=== PATIENT | male | born 1935 | race American Indian/Alaskan Native ===

== ENCOUNTER 2016-11-07 16:16 | Emergency (ER) | payer MEDICARE ==
--- NOTE | 2016-11-07 20:55 | Emergency Department Report ---
HPI - General Chief Complaint: Urogenital-Male Time Seen by Provider: 11/07/16 20:20 - HPI HPI: This is an 81-year-old Afro-[place]ish male who presents to the emergency department by EMS from home with complaint of bloody urine. Family also was concerned about some swelling to the legs. The patient himself says he has some intermittent generalized abdominal pain, although he does not complain of any at this time or now. No fever, nausea, vomiting, diarrhea. Patient says that the bloody urine has been going on for the past few days. He has a past nuchal history of CHF, diabetes, hypertension. Patient was recently released from a skilled nursing to the care of the family about 1 week ago and there were no issues at that time. Patient's primary care is usually through the [facility]. ED Past Medical Hx - Past Medical History Hx Hypertension: Yes Hx Congestive Heart Failure: Yes Hx Diabetes: Yes - Surgical History Hx Open Heart Surgery: Yes Additional Surgical History: triple bypass - Social History Smoking Status: Former Smoker Substance Use Type: None - Medications Home Medications: Home Medications Medication Instructions Recorded Confirmed Last Taken Type Ciprofloxacin HCl [Ciprofloxacin 500 mg PO Q12HR #14 tab 11/08/16 Unknown Rx TAB] ED Review of Systems ROS: Stated complaint: HEMATAURIA Other details as noted in HPI Comment: All other systems reviewed and negative Constitutional: denies: chills, fever Eyes: denies: eye pain, eye discharge, vision change ENT: denies: ear pain, throat pain Respiratory: denies: cough, shortness of breath, wheezing Cardiovascular: edema. denies: chest pain, palpitations Gastrointestinal: abdominal pain. denies: nausea, vomiting Genitourinary: hematuria. denies: dysuria Musculoskeletal: denies: back pain, joint swelling, arthralgia Skin: denies: rash, change in color Neurological: denies: headache, weakness, paresthesias Physical Exam - Physical Exam Vital Signs: Vital Signs 11/07/16 11/07/16 19:43 20:19 Temperature 98.0 F Pulse Rate 75 Respiratory 20 20 Rate Blood Pressure 123/59 O2 Sat by Pulse 98 98 Oximetry Physical Exam: GENERAL: The patient is well-developed well-nourished. HEENT: Normocephalic. Atraumatic. Extraocular motions are intact. Patient has moist mucous membranes. NECK: Supple. Trachea is midline. CHEST/LUNGS: Clear to auscultation. There is no respiratory distress noted. HEART/CARDIOVASCULAR: Regular. There is no tachycardia. There is no gallop rub or murmur. ABDOMEN: Abdomen is soft, nontender. Patient has normal bowel sounds. There is no abdominal distention. SKIN: There is no rash. There is no edema. There is no diaphoresis. NEURO: The patient is awake, alert, and oriented. The patient is cooperative. The patient has no focal neurologic deficits. The patient has normal speech. MUSCULOSKELETAL: There is no tenderness or deformity. There is no limitation range of motion. There is no evidence of acute injury. ED Course Vital Signs 11/07/16 11/07/16 19:43 20:19 Temperature 98.0 F Pulse Rate 75 Respiratory 20 20 Rate Blood Pressure 123/59 O2 Sat by Pulse 98 98 Oximetry ED Medical Decision Making - Lab Data Result diagrams: 11/07/16 20:34 11/07/16 20:34 - Radiology Data Radiology results: report reviewed CT of the abdomen and pelvis with IV contrast shows markedly enlarged prostate with suggestion of invasion into the urinary bladder and seminal vesicles. Prostate carcinoma is not excluded and should be further evaluated. Small umbilical hernia noted containing fatty tissue. No bowel loops within the hernia sac. - Medical Decision Making This is a 81-year-old male who presents the emergency department with at least a few days of gross hematuria. Patient was able to "urinate" but the bedside urinal shows either very dark urine or gross hematuria. Patient's labs are mostly unremarkable. He does have some anemia but is not a level to require transfusion at this time. His vital signs are stable including being afebrile. Due to the amount of blood in the urine, the urinalysis could not be completed to see any signs of infection. For this reason patient was just started on Cipro. A CT of the abdomen and pelvis with IV contrast was done and came back showing markedly enlarged prostate with some signs of invasion to the urinary bladder and some local vesicles concerning for prostate carcinoma. I was able to speak to the patient's daughter and let her know, as well as the patient himself, regarding the CT findings and the need for follow-up POLO with urology to further evaluate these findings and enlarged prostate with concern for cancer. - Differential Diagnosis BPH, prostate cancer, UTI, nephrolithiasis Critical Care Time: No Critical care attestation.: If time is entered above; I have spent that time in minutes in the direct care of this critically ill patient, excluding procedure time. ED Disposition Clinical Impression: Enlarged prostate, Hematuria Disposition: DISCHARGED TO HOME OR SELFCARE Is pt being admited?: No Does the pt Need Aspirin: No Condition: Stable Instructions: Acute Hematuria (ED) Additional Instructions: You will need to follow-up with a urologist regarding your bloody urine and the CT findings of enlarged prostate that is invading into the urinary bladder with concern for possible prostate cancer. The diagnosis of cancer cannot be made from the emergency department but it is imperative that you follow-up as soon as possible with a urologist. I have given you a referral for a local urologist , Dr. Brantley, but she were free to see whatever urologist you would like. Return to the emergency department with any worsening of your symptoms or any acute distress. Prescriptions: Ciprofloxacin HCl [Ciprofloxacin TAB] 500 mg PO Q12HR #14 tab Referrals: PRIMARY CARE, [Primary Care Provider] - 3-5 Days KIT BRANTLEY MD [Staff Physician] - [facility] Time of Disposition: 23:10
[2016-11-07 21:04] LABS: Basophils % (Auto) 0.3 % (0.0-1.8); Eosinophils % (Auto) 1.1 % (0.0-4.3); Hematocrit 30.6 % (35.5-45.6); Hemoglobin 9.9 gm/dl (11.8-15.2); Mean Corpuscular HGB Conc 32 % (32-34); Mean Corpuscular Hemoglobin 27 pg (28-32); Mean Corpuscular Volume 83 fl (84-94); Platelet Count 140 K/mm3 (140-440); Red Cell Distribution Width 16.9 % (13.2-15.2)
[2016-11-07 21:24] LABS: Alanine Aminotransferase 12 units/L (7-56); Albumin/Globulin Ratio 0.9 %; Alkaline Phosphatase 53 units/L (35-129); Anion Gap 21 mmol/L; BUN/Creatinine Ratio 16.92; Bilirubin,Total 0.6 mg/dL (0.1-1.2); Blood Urea Nitrogen 22 mg/dL (9-20); Calcium 8.2 mg/dL (8.4-10.2); Carbon Dioxide 25 mmol/L (22-30); Chloride 95.5 mmol/L (98-107); Glucose 174 mg/dL (75-100); Potassium 3.9 mmol/L (3.6-5.0); Sodium 138 mmol/L (137-145); Total Protein 6.4 g/dL (6.3-8.2)
[2016-11-07] MEDS ORDERED: NACL ONE (21:39)
--- NOTE | 2016-11-07 22:52 | Cat Scan Report ---
FINAL REPORT EXAM: CT ABDOMEN PELVIS W CON HISTORY: Abd pain, gross hematuria TECHNIQUE: CT of the abdomen and pelvis without contrast PRIORS: None. FINDINGS: No acute abnormality identified in the visualized portion of the lung bases. No focal abnormality seen within the liver parenchyma nonenhanced images. The spleen is normal size and attenuation No peripancreatic inflammatory changes are seen. Kidneys demonstrate no evidence for hydronephrosis or nephro lithiasis. A few vascular calcifications are noted. The adrenal glands are unremarkable No evidence for colonic or small bowel distention. Abdominal aorta is normal in caliber. The appendix is identified and is unremarkable. There is small umbilical hernia containing fatty tissue. There are no bowel loops present within the hernia sac. Prostate is markedly enlarged and seminal vesicles not well-defined. Prostate new impresses on the urinary bladder there is some thickening of the posterior bladder wall. There is large amount of fecal material within rectosigmoid. IMPRESSION: Markedly enlarged prostate with suggestion of invasion into the urinary bladder and seminal vesicles. Prostate carcinoma is not excluded and should be further evaluated Small umbilical hernia noted containing fatty tissue. No bowel loops within the hernia sac.
[2016-11-08 04:02] VITALS: BP 126/66
== END 2016-11-08 03:59 | disposition home or self-care (01) ==
LOC: ED 16:16
DX: N40.0 Benign prostatic hyperplasia without lower urinary tract symptoms (principal); R31.9 Hematuria, unspecified; I10 Essential (primary) hypertension; E11.9 Type 2 diabetes mellitus without complications; I50.9 Heart failure, unspecified; Z87.891 Personal history of nicotine dependence
CPT/HCPCS: 36415; 74177; 80053; 83880; 85025; 99285; Q9967

== ENCOUNTER 2017-03-04 15:55 | Inpatient (IN) | payer MEDICARE, OTHER ==
--- NOTE | 2017-03-04 16:19 | Emergency Department Report ---
ED General Adult HPI - General Chief complaint: Altered Mental Status Stated complaint: POSS STROKE Time Seen by Provider: 03/04/17 16:12 Source: family, EMS (ems notes not available at time of chart dictation), RN notes reviewed Mode of arrival: Stretcher Limitations: Altered Mental Status - History of Present Illness Initial comments: This is an 81-year-old male. He is previously unknown to me. He is brought to the hospital by EMS for altered mental status. Patient is nonverbal, is not able to participate in his history and physical. History obtained by speaking to the patient's daughter, Miss Kylah Cruz; , and the patient's ex-, Miss Arnold; [phone]. As for the patient's family, patient's last seen normal at 90 o'clock this morning. They report the patient is typically conversant, but requires help with activities of daily living. Family reports that the patient is found at home in bed at 2: 00 PM, and is altered. This is constant, painless, has no exacerbating or relieving factors, family reports that patient has been constipated for quite a while. No fevers or chills. No chest pain or shortness of breath, no irritative or obstructive urinary symptoms as per family. Upon arrival to the ER, the patient was found to be hypotensive, but afebrile rectally. He is found to have hyponatremia, acute renal insufficiency, hypothyroidism, hypokalemia. Noncontrast CAT scan of the brain is negative, x-ray of the abdomen and pelvis suggests constipation, consistent with clinical history, urinalysis does not suggest urinary tract infection. Lactic acid somewhat elevated, patient was given 2 L of IV, his blood pressure improved. Patient was treated empirically with ceftriaxone to cover for bacteremia. X-ray the chest did not suggest pneumonia. Blood pressure currently in the high 90s. An ammonia level is pending, but given constipation and global encephalopathy, he will be treated empirically with a lactulose enema. The case was discussed with the Hospital physician, Dr. Salgado, who accepts the patient to his service for acute renal insufficiency, global encephalopathy, resolving hypotension, and altered mental status. -: Gradual Severity scale (0 -10): 0 Consistency: constant Improves with: none Worsens with: none Associated Symptoms: confusion, malaise, weakness - Related Data Home Medications Medication Instructions Recorded Confirmed Last Taken Unobtainable 03/04/17 03/04/17 Unknown Allergies Allergy/AdvReac Type Severity Reaction Status Date / Time No Known Allergies Allergy Verified 11/07/16 21:44 ED Review of Systems ROS: Stated complaint: POSS STROKE Other details as noted in HPI Comment: Unobtainable due to pts medical conditions ED Past Medical Hx - Past Medical History Hx Hypertension: Yes Hx Congestive Heart Failure: Yes Hx Diabetes: Yes - Surgical History Hx Open Heart Surgery: Yes Additional Surgical History: triple bypass - Social History Smoking Status: Unknown if ever smoked - Medications Home Medications: Home Medications Medication Instructions Recorded Confirmed Last Taken Type Unobtainable 03/04/17 03/04/17 Unknown History ED Physical Exam - General Limitations: Altered Mental Status, Physical Limitation General appearance: lethargic - Head Head exam: Present: atraumatic, normocephalic - Eye Eye exam: Present: normal appearance - Neck Neck exam: Present: normal inspection, full ROM - Respiratory Respiratory exam: Present: decreased breath sounds. Absent: respiratory distress - Cardiovascular Cardiovascular Exam: Present: regular rate, normal rhythm, normal heart sounds. Absent: bradycardia, tachycardia, irregular rhythm, systolic murmur, diastolic murmur, rubs, gallop - GI/Abdominal GI/Abdominal exam: Present: soft, normal bowel sounds. Absent: distended, tenderness, guarding, rebound, rigid, pulsatile mass - Rectal Rectal exam: Present: normal inspection (no sacral ulcers are noted) - exam: Present: normal inspection - Extremities Exam Extremities exam: Present: normal inspection, normal capillary refill, pedal edema. Absent: calf tenderness - Back Exam Back exam: Present: normal inspection. Absent: tenderness, CVA tenderness (R), CVA tenderness (L), muscle spasm, paraspinal tenderness, vertebral tenderness - Neurological Exam Neurological exam: Present: altered, other (patient has fluctuating episodes of consciousness, currently awake, occasionally moves 4 extremities) - Psychiatric Psychiatric exam: Present: flat affect, other (patient is nonverbal) - Skin Skin exam: Present: warm, dry, intact, normal color. Absent: rash ED Course Vital Signs 03/04/17 03/04/17 16:01 16:47 Temperature 98.2 F 97.4 F L Pulse Rate 64 64 Respiratory 18 18 Rate Blood Pressure 88/42 Blood Pressure 88/42 97/52 [Left] O2 Sat by Pulse 89 98 Oximetry ED Medical Decision Making - Lab Data Result diagrams: 03/04/17 16:40 03/04/17 16:40 Vital Signs 03/04/17 03/04/17 16:01 16:47 Temperature 98.2 F 97.4 F L Pulse Rate 64 64 Respiratory 18 18 Rate Blood Pressure 88/42 Blood Pressure 88/42 97/52 [Left] O2 Sat by Pulse 89 98 Oximetry Lab Results 03/04/17 03/04/17 03/04/17 Range/Units 15:00 15:00 16:40 WBC 9.7 (4.5-11.0) K/mm3 RBC 4.66 (3.65-5.03) M/mm3 Hgb 12.6 (11.8-15.2) gm/dl Hct 40.5 (35.5-45.6) % MCV 87 (84-94) fl MCH 27 L (28-32) pg MCHC 31 L (32-34) % RDW 21.4 H (13.2-15.2) % Plt Count 100 L (140-440) K/mm3 Lymph % (Auto) 17.5 (13.4-35.0) % [place] % (Auto) 5.3 (0.0-7.3) % Eos % (Auto) 0.0 (0.0-4.3) % Baso % (Auto) 0.3 (0.0-1.8) % Lymph # 1.7 (1.2-5.4) K/mm3 [place] # 0.5 (0.0-0.8) K/mm3 Eos # 0.0 (0.0-0.4) K/mm3 Baso # 0.0 (0.0-0.1) K/mm3 Seg Neutrophils % 76.9 H (40.0-70.0) % Seg Neutrophils # 7.5 (1.8-7.7) K/mm3 POC ABG pH (7.35-7.45) POC ABG pCO2 (35-45) POC ABG pO2 (80-105) POC ABG HCO3 POC ABG Total CO2 POC ABG O2 Sat POC ABG Base Excess FiO2 % Sodium (137-145) mmol/L Potassium (3.6-5.0) mmol/L Chloride (98-107) mmol/L Carbon Dioxide (22-30) mmol/L Anion Gap mmol/L BUN (9-20) mg/dL Creatinine (0.8-1.5) mg/dL Estimated GFR ml/min BUN/Creatinine Ratio % Glucose (75-100) mg/dL Lactic Acid (0.7-2.0) mmol/L Calcium (8.4-10.2) mg/dL Magnesium (1.7-2.3) mg/dL Total Bilirubin (0.1-1.2) mg/dL AST (5-40) units/L ALT (7-56) units/L Alkaline Phosphatase (35-129) units/L Total Creatine Kinase (55-170) units/L Total Protein (6.3-8.2) g/dL Albumin (3.9-5) g/dL Albumin/Globulin Ratio % TSH (0.270-4.200) mlU/mL Urine Color [place] (Yellow) Urine Turbidity Clear (Clear) Urine pH 5.0 (5.0-7.0) Ur Specific [place] 1.017 (1.003-1.030) Urine Protein <15 mg/dl (Negative) mg/dL Urine Glucose (UA) Neg (Negative) mg/dL Urine Ketones Neg (Negative) mg/dL Urine Blood Sm (Negative) Urine Nitrite Neg (Negative) Urine Bilirubin Neg (Negative) Urine Urobilinogen < 2.0 (<2.0) mg/dL Ur Leukocyte Esterase Neg (Negative) Urine WBC (Auto) < 1.0 (0.0-6.0) /HPF Urine RBC (Auto) < 1.0 (0.0-6.0) /HPF U Epithel Cells (Auto) < 1.0 (0-13.0) /HPF Salicylates (2.8-20.0) mg/dL Urine Opiates Screen Presumptive negative Urine Methadone Screen Presumptive negative Acetaminophen (10.0-30.0) ug/mL Ur Barbiturates Screen Presumptive negative Ur Phencyclidine Scrn Presumptive negative Ur Amphetamines Screen Presumptive negative U Benzodiazepines Scrn Presumptive negative Urine Cocaine Screen Presumptive negative U Marijuana (THC) Screen Presumptive negative Drugs of Abuse Note Disclamer Plasma/Serum Alcohol (0-0.07) gm% 03/04/17 03/04/17 03/04/17 Range/Units 16:40 16:40 16:40 WBC (4.5-11.0) K/mm3 RBC (3.65-5.03) M/mm3 Hgb (11.8-15.2) gm/dl Hct (35.5-45.6) % MCV (84-94) fl MCH (28-32) pg MCHC (32-34) % RDW (13.2-15.2) % Plt Count (140-440) K/mm3 Lymph % (Auto) (13.4-35.0) % [place] % (Auto) (0.0-7.3) % Eos % (Auto) (0.0-4.3) % Baso % (Auto) (0.0-1.8) % Lymph # (1.2-5.4) K/mm3 [place] # (0.0-0.8) K/mm3 Eos # (0.0-0.4) K/mm3 Baso # (0.0-0.1) K/mm3 Seg Neutrophils % (40.0-70.0) % Seg Neutrophils # (1.8-7.7) K/mm3 POC ABG pH (7.35-7.45) POC ABG pCO2 (35-45) POC ABG pO2 (80-105) POC ABG HCO3 POC ABG Total CO2 POC ABG O2 Sat POC ABG Base Excess FiO2 % Sodium 155 H (137-145) mmol/L Potassium 2.8 L* (3.6-5.0) mmol/L Chloride 101.2 (98-107) mmol/L Carbon Dioxide 29 (22-30) mmol/L Anion Gap 28 mmol/L BUN 102 H (9-20) mg/dL Creatinine 3.7 H (0.8-1.5) mg/dL Estimated GFR 19 ml/min BUN/Creatinine Ratio 27.56 % Glucose 236 H (75-100) mg/dL Lactic Acid 3.60 H* (0.7-2.0) mmol/L Calcium 8.0 L (8.4-10.2) mg/dL Magnesium 2.60 H (1.7-2.3) mg/dL Total Bilirubin 0.80 (0.1-1.2) mg/dL AST 32 (5-40) units/L ALT 19 (7-56) units/L Alkaline Phosphatase 90 (35-129) units/L Total Creatine Kinase (55-170) units/L Total Protein 6.2 L (6.3-8.2) g/dL Albumin 2.5 L (3.9-5) g/dL Albumin/Globulin Ratio 0.7 % TSH 10.230 H (0.270-4.200) mlU/mL Urine Color (Yellow) Urine Turbidity (Clear) Urine pH (5.0-7.0) Ur Specific [place] (1.003-1.030) Urine Protein (Negative) mg/dL Urine Glucose (UA) (Negative) mg/dL Urine Ketones (Negative) mg/dL Urine Blood (Negative) Urine Nitrite (Negative) Urine Bilirubin (Negative) Urine Urobilinogen (<2.0) mg/dL Ur Leukocyte Esterase (Negative) Urine WBC (Auto) (0.0-6.0) /HPF Urine RBC (Auto) (0.0-6.0) /HPF U Epithel Cells (Auto) (0-13.0) /HPF Salicylates (2.8-20.0) mg/dL Urine Opiates Screen Urine Methadone Screen Acetaminophen (10.0-30.0) ug/mL Ur Barbiturates Screen Ur Phencyclidine Scrn Ur Amphetamines Screen U Benzodiazepines Scrn Urine Cocaine Screen U Marijuana (THC) Screen Drugs of Abuse Note Plasma/Serum Alcohol (0-0.07) gm% 03/04/17 03/04/17 03/04/17 Range/Units 16:40 16:40 16:40 WBC (4.5-11.0) K/mm3 RBC (3.65-5.03) M/mm3 Hgb (11.8-15.2) gm/dl Hct (35.5-45.6) % MCV (84-94) fl MCH (28-32) pg MCHC (32-34) % RDW (13.2-15.2) % Plt Count (140-440) K/mm3 Lymph % (Auto) (13.4-35.0) % [place] % (Auto) (0.0-7.3) % Eos % (Auto) (0.0-4.3) % Baso % (Auto) (0.0-1.8) % Lymph # (1.2-5.4) K/mm3 [place] # (0.0-0.8) K/mm3 Eos # (0.0-0.4) K/mm3 Baso # (0.0-0.1) K/mm3 Seg Neutrophils % (40.0-70.0) % Seg Neutrophils # (1.8-7.7) K/mm3 POC ABG pH (7.35-7.45) POC ABG pCO2 (35-45) POC ABG pO2 (80-105) POC ABG HCO3 POC ABG Total CO2 POC ABG O2 Sat POC ABG Base Excess FiO2 % Sodium (137-145) mmol/L Potassium (3.6-5.0) mmol/L Chloride (98-107) mmol/L Carbon Dioxide (22-30) mmol/L Anion Gap mmol/L BUN (9-20) mg/dL Creatinine (0.8-1.5) mg/dL Estimated GFR ml/min BUN/Creatinine Ratio % Glucose (75-100) mg/dL Lactic Acid (0.7-2.0) mmol/L Calcium (8.4-10.2) mg/dL Magnesium (1.7-2.3) mg/dL Total Bilirubin (0.1-1.2) mg/dL AST (5-40) units/L ALT (7-56) units/L Alkaline Phosphatase (35-129) units/L Total Creatine Kinase (55-170) units/L Total Protein (6.3-8.2) g/dL Albumin (3.9-5) g/dL Albumin/Globulin Ratio % TSH (0.270-4.200) mlU/mL Urine Color (Yellow) Urine Turbidity (Clear) Urine pH (5.0-7.0) Ur Specific [place] (1.003-1.030) Urine Protein (Negative) mg/dL Urine Glucose (UA) (Negative) mg/dL Urine Ketones (Negative) mg/dL Urine Blood (Negative) Urine Nitrite (Negative) Urine Bilirubin (Negative) Urine Urobilinogen (<2.0) mg/dL Ur Leukocyte Esterase (Negative) Urine WBC (Auto) (0.0-6.0) /HPF Urine RBC (Auto) (0.0-6.0) /HPF U Epithel Cells (Auto) (0-13.0) /HPF Salicylates < 0.3 L (2.8-20.0) mg/dL Urine Opiates Screen Urine Methadone Screen Acetaminophen < 15.0 (10.0-30.0) ug/mL Ur Barbiturates Screen Ur Phencyclidine Scrn Ur Amphetamines Screen U Benzodiazepines Scrn Urine Cocaine Screen U Marijuana (THC) Screen Drugs of Abuse Note Plasma/Serum Alcohol < 0.01 (0-0.07) gm% 03/04/17 03/04/17 Range/Units 16:40 16:45 WBC (4.5-11.0) K/mm3 RBC (3.65-5.03) M/mm3 Hgb (11.8-15.2) gm/dl Hct (35.5-45.6) % MCV (84-94) fl MCH (28-32) pg MCHC (32-34) % RDW (13.2-15.2) % Plt Count (140-440) K/mm3 Lymph % (Auto) (13.4-35.0) % [place] % (Auto) (0.0-7.3) % Eos % (Auto) (0.0-4.3) % Baso % (Auto) (0.0-1.8) % Lymph # (1.2-5.4) K/mm3 [place] # (0.0-0.8) K/mm3 Eos # (0.0-0.4) K/mm3 Baso # (0.0-0.1) K/mm3 Seg Neutrophils % (40.0-70.0) % Seg Neutrophils # (1.8-7.7) K/mm3 POC ABG pH 7.449 (7.35-7.45) POC ABG pCO2 48.5 H (35-45) POC ABG pO2 79 L (80-105) POC ABG HCO3 33.7 POC ABG Total CO2 35 POC ABG O2 Sat 96 POC ABG Base Excess 10 FiO2 21 % Sodium (137-145) mmol/L Potassium (3.6-5.0) mmol/L Chloride (98-107) mmol/L Carbon Dioxide (22-30) mmol/L Anion Gap mmol/L BUN (9-20) mg/dL Creatinine (0.8-1.5) mg/dL Estimated GFR ml/min BUN/Creatinine Ratio % Glucose (75-100) mg/dL Lactic Acid (0.7-2.0) mmol/L Calcium (8.4-10.2) mg/dL Magnesium (1.7-2.3) mg/dL Total Bilirubin (0.1-1.2) mg/dL AST (5-40) units/L ALT (7-56) units/L Alkaline Phosphatase (35-129) units/L Total Creatine Kinase 420 H (55-170) units/L Total Protein (6.3-8.2) g/dL Albumin (3.9-5) g/dL Albumin/Globulin Ratio % TSH (0.270-4.200) mlU/mL Urine Color (Yellow) Urine Turbidity (Clear) Urine pH (5.0-7.0) Ur Specific [place] (1.003-1.030) Urine Protein (Negative) mg/dL Urine Glucose (UA) (Negative) mg/dL Urine Ketones (Negative) mg/dL Urine Blood (Negative) Urine Nitrite (Negative) Urine Bilirubin (Negative) Urine Urobilinogen (<2.0) mg/dL Ur Leukocyte Esterase (Negative) Urine WBC (Auto) (0.0-6.0) /HPF Urine RBC (Auto) (0.0-6.0) /HPF U Epithel Cells (Auto) (0-13.0) /HPF Salicylates (2.8-20.0) mg/dL Urine Opiates Screen Urine Methadone Screen Acetaminophen (10.0-30.0) ug/mL Ur Barbiturates Screen Ur Phencyclidine Scrn Ur Amphetamines Screen U Benzodiazepines Scrn Urine Cocaine Screen U Marijuana (THC) Screen Drugs of Abuse Note Plasma/Serum Alcohol (0-0.07) gm% - EKG Data When compared to previous EKG there are: previous EKG unavailable 03/04/17 18:10 normal sinus, 76 bpm, left axis deviation, widened QRS, QTC 495 ms, not morphologically consistent with STEMI, abnormal EKG. - Radiology Data Radiology results: report reviewed, image reviewed Noncontrast CT scan of the brain is negative, chronic findings are noted. X-ray the chest shows median sternotomy, no acute disease. X-ray of the abdomen and pelvis suggests constipation. - Medical Decision Making Patient not a TPA candidate given that symptoms occurred between 9:00 and 2:00, we do not have exact onset of symptoms. - Differential Diagnosis dehydration, subacute stroke, pneumonia, urinary tract infection Critical care attestation.: If time is entered above; I have spent that time in minutes in the direct care of this critically ill patient, excluding procedure time. ED Disposition Clinical Impression: Hypernatremia, Acute renal failure, Hypotension, Acute encephalopathy Disposition: OP ADMITTED IP TO THIS HOSP Is pt being admited?: Yes Condition: Fair
[2017-03-04] MEDS ORDERED: NACL 0.9% 1000 ML 2,000 ML IV ONE (16:36)
[2017-03-04] MEDS ORDERED: ROCEPHIN/NS 2 GM/100 ML 2 GM/100 ML BAG IV ONE (16:36)
[2017-03-04 16:45] LABS: Urine Drugs of Abuse Note Disclamer
[2017-03-04 16:52] LABS: ISTAT Base Excess 10; ISTAT DEVICE 0; ISTAT HCO3 33.7; ISTAT PCO2 48.5 (35-45); ISTAT PH 7.449 (7.35-7.45); ISTAT PO2 79 (80-105); ISTAT SO2 96; ISTAT TCO2 35
[2017-03-04 17:08] LABS: Bilirubin,Urine NEG (Negative); Blood,Urine SM (Negative); Ketones,Urine NEG (Negative); Leukocyte Esterase,Urine NEG (Negative); Nitrite,Urine NEG (Negative); Protein,Urine <15 mg/dL mg/dL (Negative); RBC,Urine < 1.0 /HPF (0.0-6.0); Urobilinogen,Urine < 2.0 mg/dL (<2.0); WBC,Urine < 1.0 /HPF (0.0-6.0)
[2017-03-04 17:09] LABS: Basophils % (Auto) 0.3 % (0.0-1.8); Hematocrit 40.5 % (35.5-45.6); Hemoglobin 12.6 gm/dl (11.8-15.2); Mean Corpuscular HGB Conc 31 % (32-34); Mean Corpuscular Hemoglobin 27 pg (28-32); Mean Corpuscular Volume 87 fl (84-94); Platelet Count 100 K/mm3 (140-440); Red Blood Count 4.66 M/mm3 (3.65-5.03); Red Cell Distribution Width 21.4 % (13.2-15.2); White Blood Count 9.7 K/mm3 (4.5-11.0)
[2017-03-04 17:19] LABS: Albumin 2.5 g/dL (3.9-5); Albumin/Globulin Ratio 0.7 %; BUN/Creatinine Ratio 27.56; Bilirubin,Total 0.8 mg/dL (0.1-1.2); Chloride 101.2 mmol/L (98-107); Magnesium 2.6 mg/dL (1.7-2.3); Total Protein 6.2 g/dL (6.3-8.2)
--- NOTE | 2017-03-04 17:19 | XRay Report ---
FINAL REPORT PROCEDURE: XR ABDOMEN 2V TECHNIQUE: Abdominal series, including supine and upright AP views. HISTORY: ? constipation COMPARISON: No prior studies are available for comparison. FINDINGS: Nonspecific bowel gas pattern. No evidence of bowel obstruction. No free intraperitoneal gas is seen. There is large amount of stool seen throughout large portions of the colon including distension of the rectum with a large amount of stool. The patient does appear to be constipated and may be impacted. No abnormal masses are seen. Moderate degenerative changes are seen in the SI joints and lower lumbar spine, mild to moderate changes seen in the lower thoracic and upper lumbar spine. Sternotomy wires are partially visualized overlying the chest. IMPRESSION: Stool pattern as described. The patient appears to be constipated and may be impacted. No evidence of bowel obstruction. No acute abnormalities are identified. Prior thoracotomy. .
[2017-03-04 17:28] LABS: Potassium 2.8 mmol/L (3.6-5.0)
--- NOTE | 2017-03-04 17:36 | History and Physical Report ---
History of Present Illness Chief complaint: Confusion, History of present illness: 81 YO Male with HTN, CHF, DM, CAD S/P CABG, presents to ED for evaluation. Patient is nonverbal, and unable to provide history. History is obtained from family and ED staff. Pt daughter, Miss Kylah Cruz; [phone], and the patient's ex-, Miss Arnold; [phone] provide history. Pt family reports that the patient is normally able to conduct ADL's independently. Pt was found at home in bed at 1400hrs. Pt found to be confused and lethargic. EMS notified and patient transported to [facility]. Upon arrival to the ER, the patient was found with sepsis with systolic BP in 80's. Past History Past Medical History: CAD, diabetes, hypertension Past Surgical History: CABG Social history: single, lives with family. denies: smoking, alcohol abuse, prescription drug abuse Family history: diabetes, hypertension Medications and Allergies Allergies Allergy/AdvReac Type Severity Reaction Status Date / Time No Known Allergies Allergy Verified 11/07/16 21:44 Home Medications Medication Instructions Recorded Confirmed Last Taken Type Unobtainable 03/04/17 03/04/17 Unknown History Review of Systems ROS unobtainable: due to mental status Exam - Constitutional Vitals: Temp Pulse Resp BP Pulse Ox 97.4 F L 64 18 97/52 98 03/04/17 16:47 03/04/17 16:47 03/04/17 16:47 03/04/17 16:47 03/04/17 16:47 General appearance: Present: mild distress - EENT Eyes: Present: PERRL ENT: hearing intact, clear oral mucosa - Neck Neck: Present: supple, normal ROM - Respiratory Respiratory: bilateral: diminished - Cardiovascular Heart Sounds: Present: S1 & S2. Absent: rub, click - Extremities Extremities: pulses symmetrical, No edema Peripheral Pulses: within normal limits - Abdominal General gastrointestinal: Present: soft, non-tender, non-distended, normal bowel sounds Male genitourinary: Present: normal - Integumentary Integumentary: Present: clear, dry, decreased turgor - Musculoskeletal Musculoskeletal: generalized weakness - Psychiatric Psychiatric: no intact judgment & insight, no memory intact - Neurologic Neurologic: moves all extremities, no gait normal Results - Labs CBC & Chem 7: 03/04/17 16:40 03/04/17 16:40 Labs: Abnormal lab results 03/04/17 03/04/17 03/04/17 Range/Units 16:40 16:40 16:40 MCH 27 L (28-32) pg MCHC 31 L (32-34) % RDW 21.4 H (13.2-15.2) % Plt Count 100 L (140-440) K/mm3 Seg Neutrophils % 76.9 H (40.0-70.0) % POC ABG pCO2 (35-45) POC ABG pO2 (80-105) Sodium 155 H (137-145) mmol/L Potassium 2.8 L* (3.6-5.0) mmol/L BUN 102 H (9-20) mg/dL Creatinine 3.7 H (0.8-1.5) mg/dL Glucose 236 H (75-100) mg/dL Lactic Acid 3.60 H* (0.7-2.0) mmol/L Calcium 8.0 L (8.4-10.2) mg/dL Magnesium 2.60 H (1.7-2.3) mg/dL Total Creatine Kinase (55-170) units/L Total Protein 6.2 L (6.3-8.2) g/dL Albumin 2.5 L (3.9-5) g/dL TSH (0.270-4.200) mlU/mL Salicylates (2.8-20.0) mg/dL 03/04/17 03/04/17 03/04/17 Range/Units 16:40 16:40 16:40 MCH (28-32) pg MCHC (32-34) % RDW (13.2-15.2) % Plt Count (140-440) K/mm3 Seg Neutrophils % (40.0-70.0) % POC ABG pCO2 (35-45) POC ABG pO2 (80-105) Sodium (137-145) mmol/L Potassium (3.6-5.0) mmol/L BUN (9-20) mg/dL Creatinine (0.8-1.5) mg/dL Glucose (75-100) mg/dL Lactic Acid (0.7-2.0) mmol/L Calcium (8.4-10.2) mg/dL Magnesium (1.7-2.3) mg/dL Total Creatine Kinase 420 H (55-170) units/L Total Protein (6.3-8.2) g/dL Albumin (3.9-5) g/dL TSH 10.230 H (0.270-4.200) mlU/mL Salicylates < 0.3 L (2.8-20.0) mg/dL /04/15 Range/Units 16:45 MCH (28-32) pg MCHC (32-34) % RDW (13.2-15.2) % Plt Count (140-440) K/mm3 Seg Neutrophils % (40.0-70.0) % POC ABG pCO2 48.5 H (35-45) POC ABG pO2 79 L (80-105) Sodium (137-145) mmol/L Potassium (3.6-5.0) mmol/L BUN (9-20) mg/dL Creatinine (0.8-1.5) mg/dL Glucose (75-100) mg/dL Lactic Acid (0.7-2.0) mmol/L Calcium (8.4-10.2) mg/dL Magnesium (1.7-2.3) mg/dL Total Creatine Kinase (55-170) units/L Total Protein (6.3-8.2) g/dL Albumin (3.9-5) g/dL TSH (0.270-4.200) mlU/mL Salicylates (2.8-20.0) mg/dL Assessment and Plan - Patient Problems (1) Sepsis Current Visit: Yes Status: Acute Qualifiers: Sepsis type: S Plan to address problem: Sepsis Protocol: IVF, IV abx, serial lactate, monitor uop q shift, (2) ARF (acute renal failure) Current Visit: Yes Status: Acute Qualifiers: Acute renal failure type: A Plan to address problem: IVF replacement, monitor uop q shift, repeat bmp in am, urine electrolytes, renal ultrasound (3) Hypokalemia Current Visit: Yes Status: Acute Plan to address problem: repleted in ed (4) Hypernatremia Current Visit: Yes Status: Acute Plan to address problem: ivf replacement (5) Encephalopathy Current Visit: Yes Status: Acute Plan to address problem: treat sepsis, IVF replacement, supportive care, (6) DVT prophylaxis Current Visit: Yes Status: Acute
--- NOTE | 2017-03-04 17:55 | Cat Scan Report ---
FINAL REPORT PROCEDURE: CT HEAD/BRAIN WO CON TECHNIQUE: Computerized tomography of the head was performed without contrast material. HISTORY: Altered mental status COMPARISON: No prior studies are available for comparison. FINDINGS: There is no evidence of intracranial hemorrhage. No parenchymal hemorrhage, mass lesions or mass effect are seen. The ventricles sulcal pattern and fissures are prominent consistent with moderate to severe atrophy. There is mild decreased density in the periventricular white matter without mass effect suggesting mild gliosis related to microvascular disease or white matter changes of aging. Small scalp hematoma seen left parietal region posteriorly superiorly. No evidence of skull fracture. The paranasal sinuses and mastoid air cells appear clear. IMPRESSION: Moderate to severe atrophy and mild gliosis visualized. Small scalp hematoma is visualized as described. No acute intracranial abnormality is seen.
[2017-03-04] MEDS ORDERED: FLEET PR ONE (18:03)
[2017-03-04] MEDS ORDERED: DUONEB 0.5 MG-3 MG/3 ML SOLN IH PRN (18:10)
[2017-03-04] MEDS ORDERED: TYLENOL PO PRN (18:10)
[2017-03-04] MEDS ORDERED: DULCOLAX PR PRN (18:10)
[2017-03-04] MEDS ORDERED: MILK OF MAGNESIA PO PRN (18:10)
[2017-03-04] MEDS ORDERED: ZOFRAN IV PRN (18:10)
[2017-03-04] MEDS ORDERED: NACL 0.9% 1000 ML IV ONE (18:13)
[2017-03-04] MEDS ORDERED: CEPHULAC PR ONE (18:30)
[2017-03-04] MEDS ORDERED: PROVENTIL IH PRN (18:37)
[2017-03-04] MEDS ORDERED: LEVAQUIN 750MG/150ML 750 MG/150 ML BAG IV ONE ×3 (18:44→20:48)
[2017-03-04] MEDS ORDERED: KCL 10MEQ/100ML 10 MEQ/100 ML BAG IV ONE (18:44)
[2017-03-04] MEDS ORDERED: KCL 10MEQ/100ML 10 MEQ/100 ML BAG IV SCH (19:00)
[2017-03-04] MEDS ORDERED: SYNTHROID 112 MCG, SYNTHROID 25 MCG PO SCH (19:16)
[2017-03-05] MEDS ORDERED: ZOSYN/NS 4.5GM/100ML 4.5 GM/100 ML VIAL IV SCH
[2017-03-05] MEDS: SYNTHROID PO SCH ×2 (07:06→07:07)
[2017-03-05 07:26] LABS: Basophils % (Auto) 0.2 % (0.0-1.8); Hematocrit 39.1 % (35.5-45.6); Hemoglobin 12.2 gm/dl (11.8-15.2); Mean Corpuscular HGB Conc 31 % (32-34); Mean Corpuscular Hemoglobin 27 pg (28-32); Mean Corpuscular Volume 86 fl (84-94); Red Blood Count 4.53 M/mm3 (3.65-5.03); White Blood Count 9.8 K/mm3 (4.5-11.0)
[2017-03-05 07:31] LABS: Platelet Count 95 K/mm3 (140-440); Red Cell Distribution Width 21.1 % (13.2-15.2)
[2017-03-05 07:42] LABS: BUN/Creatinine Ratio 32.18; Calcium 7.2 mg/dL (8.4-10.2); Chloride 107.4 mmol/L (98-107)
[2017-03-05 07:57] LABS: Potassium 2.7 mmol/L (3.6-5.0)
[2017-03-05] MEDS ORDERED: KCL 40 MEQ in D5W 1,000 ML IV SCH (08:45)
[2017-03-05] MEDS ORDERED: D5W IV SCH (09:00)
[2017-03-05] MEDS ORDERED: KCL IV SCH (09:00)
--- NOTE | 2017-03-05 09:41 | XRay Report ---
AP CHEST: HISTORY: Altered mental status Previous thoracic surgery changes are noted. AP view of the chest demonstrates a normal mediastinal and cardiac contour with clear lungs and normal bony and soft tissue structures. IMPRESSION: No acute cardiopulmonary process appreciated.
[2017-03-05] MEDS: KCL 10MEQ/100ML 10 MEQ/100 ML BAG IV SCH ×3 (09:49→13:01)
--- NOTE | 2017-03-05 10:05 | Ultrasound Report ---
ULTRASOUND RENAL BILATERAL HISTORY: Renal failure. TECHNIQUE: transabdominal ultrasound with color Doppler interrogation. FINDINGS: Many of the images are limited secondary to body habitus. Scans of the kidneys show normal renal contours. There is normal central calyceal clustering and good preservation of the cortical thickness. There is no evidence of mass or hydronephrosis. The views of the bladder and the region of the ureters appear normal. IMPRESSION: Unremarkable renal ultrasound.
--- NOTE | 2017-03-05 10:18 | Progress Note ---
Assessment and Plan Assessment and plan: 81-year-old man who was brought in by his family for altered mental status. Apparently at baseline he is conversant even though he requires assistance with activities of daily living, he was found to be confused and groggy and nonresponsive therefore he was brought into the hospital. He was obtunded and hypotensive in the ER found to have sepsis. 1. Sepsis due to gram-positive bacteremia UA wnl, CXR no infiltrate Continue current antibiotics, add vancomycin for suspicion of staph Follow-up finalize cultures, continue IV fluids, continue sepsis protocol Repeat CXR in am (as he could have PNA without infiltrate due to severe dehydration) 2. Toxic metabolic encephalopathy Most likely due to sepsis, treat underlying cause 3. Hypernatremia/Dehydration Continue IV fluids 4. hypokalemia Continue K replacements 5. VITALY likely multifactorial likely due to vasomotor nephropathy and acute tubular nephrosis Continue IV fluids, kidney ultrasound was unremarkable, nephrology consult This patient is demented, therefore attempted to contact his family under number stated in the charts which is [phone] there was no response, was unable to leave a message as voicemail has not been set up yet History Interval history: His mentation has somewhat improved, he is now awake and responsive, but confused, also inappropriate splitting his hands in his underwear. But cooperative. Hospitalist Physical - Physical exam Narrative exam: General: Patient appears well in no distress HEENT: Dry mucous membranes cardiac: S1-S2 heard lungs: clear to auscultation, abdomen: soft, nontender, nondistended bowel sounds positive extremities: no edema clubbing or cyanosis Skin: no rash or lesion Neuro: Moves all extremities, obeys commands, has no insights, inappropriate behavior as he has his hands and his genitals while providers or neuro Psych: Demented, confused - Constitutional Vitals: Temp Pulse Resp BP Pulse Ox 97.8 F 62 20 92/56 92 03/05/17 09:47 03/05/17 09:47 03/05/17 09:47 03/05/17 09:47 03/05/17 09:47 General appearance: Present: mild distress Results - Labs CBC & Chem 7: 03/05/17 06:53 03/05/17 07:08 Labs: Laboratory Last Values WBC 9.8 K/mm3 (4.5-11.0) 03/05/17 06:53 RBC 4.53 M/mm3 (3.65-5.03) 03/05/17 06:53 Hgb 12.2 gm/dl (11.8-15.2) 03/05/17 06:53 Hct 39.1 % (35.5-45.6) 03/05/17 06:53 MCV 86 fl (84-94) 03/05/17 06:53 MCH 27 pg (28-32) L 03/05/17 06:53 MCHC 31 % (32-34) L 03/05/17 06:53 RDW 21.1 % (13.2-15.2) H 03/05/17 06:53 Plt Count 95 K/mm3 (140-440) L 03/05/17 06:53 Lymph % (Auto) 15.0 % (13.4-35.0) 03/05/17 06:53 [place] % (Auto) 5.4 % (0.0-7.3) 03/05/17 06:53 Eos % (Auto) 0.0 % (0.0-4.3) 03/05/17 06:53 Baso % (Auto) 0.2 % (0.0-1.8) 03/05/17 06:53 Lymph # 1.5 K/mm3 (1.2-5.4) 03/05/17 06:53 [place] # 0.5 K/mm3 (0.0-0.8) 03/05/17 06:53 Eos # 0.0 K/mm3 (0.0-0.4) 03/05/17 06:53 Baso # 0.0 K/mm3 (0.0-0.1) 03/05/17 06:53 Seg Neutrophils % 79.4 % (40.0-70.0) H 03/05/17 06:53 Seg Neutrophils # 7.8 K/mm3 (1.8-7.7) H 03/05/17 06:53 POC ABG pH 7.449 (7.35-7.45) 03/04/17 16:45 POC ABG pCO2 48.5 (35-45) H 03/04/17 16:45 POC ABG pO2 79 (80-105) L 03/04/17 16:45 POC ABG HCO3 33.7 03/04/17 16:45 POC ABG Total CO2 35 03/04/17 16:45 POC ABG O2 Sat 96 03/04/17 16:45 POC ABG Base Excess 10 03/04/17 16:45 FiO2 21 % 03/04/17 16:45 Sodium 155 mmol/L (137-145) H 03/05/17 07:08 Potassium 2.7 mmol/L (3.6-5.0) L* 03/05/17 07:08 Chloride 107.4 mmol/L (98-107) H 03/05/17 07:08 Carbon Dioxide 25 mmol/L (22-30) 03/05/17 07:08 Anion Gap 25 mmol/L 03/05/17 07:08 BUN 103 mg/dL (9-20) H 03/05/17 07:08 Creatinine 3.2 mg/dL (0.8-1.5) H 03/05/17 07:08 Estimated GFR 23 ml/min 03/05/17 07:08 BUN/Creatinine Ratio 32.18 % 03/05/17 07:08 Glucose 250 mg/dL (75-100) H 03/05/17 07:08 Lactic Acid 1.40 mmol/L (0.7-2.0) 03/04/17 20:41 Calcium 7.2 mg/dL (8.4-10.2) L 03/05/17 07:08 Magnesium 2.60 mg/dL (1.7-2.3) H 03/04/17 16:40 Total Bilirubin 0.80 mg/dL (0.1-1.2) 03/04/17 16:40 AST 32 units/L (5-40) 03/04/17 16:40 ALT 19 units/L (7-56) 03/04/17 16:40 Alkaline Phosphatase 90 units/L (35-129) 03/04/17 16:40 Ammonia 34.0 umol/L (25-60) 03/04/17 17:04 Total Creatine Kinase 420 units/L (55-170) H 03/04/17 16:40 Total Protein 6.2 g/dL (6.3-8.2) L 03/04/17 16:40 Albumin 2.5 g/dL (3.9-5) L 03/04/17 16:40 Albumin/Globulin Ratio 0.7 % 03/04/17 16:40 TSH 10.230 mlU/mL (0.270-4.200) H 03/04/17 16:40 Free T4 0.89 ng/dL (0.76-1.46) 03/04/17 20:41 Urine Color [place] (Yellow) 03/04/17 15:00 Urine Turbidity Clear (Clear) 03/04/17 15:00 Urine pH 5.0 (5.0-7.0) 03/04/17 15:00 Ur Specific [place] 1.017 (1.003-1.030) 03/04/17 15:00 Urine Protein <15 mg/dl mg/dL (Negative) 03/04/17 15:00 Urine Glucose (UA) Neg mg/dL (Negative) 03/04/17 15:00 Urine Ketones Neg mg/dL (Negative) 03/04/17 15:00 Urine Blood Sm (Negative) 03/04/17 15:00 Urine Nitrite Neg (Negative) 03/04/17 15:00 Urine Bilirubin Neg (Negative) 03/04/17 15:00 Urine Urobilinogen < 2.0 mg/dL (<2.0) 03/04/17 15:00 Ur Leukocyte Esterase Neg (Negative) 03/04/17 15:00 Urine WBC (Auto) < 1.0 /HPF (0.0-6.0) 03/04/17 15:00 Urine RBC (Auto) < 1.0 /HPF (0.0-6.0) 03/04/17 15:00 U Epithel Cells (Auto) < 1.0 /HPF (0-13.0) 03/04/17 15:00 Salicylates < 0.3 mg/dL (2.8-20.0) L 03/04/17 16:40 Urine Opiates Screen Presumptive negative 03/04/17 15:00 Urine Methadone Screen Presumptive negative 03/04/17 15:00 Acetaminophen < 15.0 ug/mL (10.0-30.0) 03/04/17 16:40 Ur Barbiturates Screen Presumptive negative 03/04/17 15:00 Ur Phencyclidine Scrn Presumptive negative 03/04/17 15:00 Ur Amphetamines Screen Presumptive negative 03/04/17 15:00 U Benzodiazepines Scrn Presumptive negative 03/04/17 15:00 Urine Cocaine Screen Presumptive negative 03/04/17 15:00 U Marijuana (THC) Screen Presumptive negative 03/04/17 15:00 Drugs of Abuse Note Disclamer 03/04/17 15:00 Plasma/Serum Alcohol < 0.01 gm% (0-0.07) 03/04/17 16:40 - Imaging and Cardiology Chest x-ray: image reviewed (no infiltrate seen)
[2017-03-05] MEDS ORDERED: VANCOMYCIN PHARMACY TO DOSE IV SCH (11:00)
[2017-03-05] MEDS ORDERED: VANCOMYCIN VIAL 750 MG in NACL 0.9% 250ML 250 ML IV SCH (12:00)
--- NOTE | 2017-03-05 12:38 | Consultation ---
History of Present Illness - Reason for Consult Consult date: 03/05/17 acute renal failure, hypernatremia, hypokalemia Requesting physician: JOYCELYN MARINO - History of Present Illness 81 YO Male with HTN, CHF, DM, CAD S/P CABG, presented to ED for evaluation. Patient is nonverbal. History obtained from patient's daughter at bedside. Pt family reports that the patient is normally able to conduct ADL's independently. Pt found to be confused and lethargic. His blood pressure was also low with systolic in the 80s on arrival to the ER. He had an hospitalization at [place] recently. From there he went to rehabilitation and returned home about a month ago. Apparently he has not been doing well since his hospital discharge. According to her daughter he also had some on and off blood in his urine. Denies any knowledge of prostate cancer Past History Past Medical History: CAD, diabetes, hypertension Past Surgical History: CABG Social history: single, lives with family. denies: smoking, alcohol abuse, prescription drug abuse Family history: diabetes, hypertension Medications and Allergies Allergies Allergy/AdvReac Type Severity Reaction Status Date / Time No Known Allergies Allergy Verified 11/07/16 21:44 Home Medications Medication Instructions Recorded Confirmed Last Taken Type Unobtainable 03/04/17 03/04/17 Unknown History Active Meds: Active Medications Acetaminophen (Tylenol) 650 mg PO Q4H PRN PRN Reason: Pain MILD(1-3)/Fever >100.5/HUI Albuterol (Proventil) 2.5 mg IH Q4H PRN PRN Reason: Shortness Of Breath Bisacodyl (Dulcolax) 10 mg OR QDAY PRN PRN Reason: Constipation unrelieved by MOM Dextrose (D50w (25gm)) 50 ml IV PRN PRN PRN Reason: Hypoglycemia Levofloxacin/Dextrose (Levaquin 500mg/100ml) 500 mg in 100 mls @ 100 mls/hr IV Q48H TYRONE Piperacillin Sod/Tazobactam Sod (Zosyn/Ns 2.25 Gm/50ml) 2.25 gm in 50 mls @ 100 mls/hr IV Q8H TYRONE Potassium Chloride (Kcl 10meq/100ml) 10 meq in 100 mls @ 100 mls/hr IV Q1H TYRONE Stop: 03/05/17 12:59 Last Admin: 03/05/17 11:35 Dose: 100 mls/hr Potassium Chloride 40 meq/ (Dextrose) 1,020 mls @ 125 mls/hr IV DIRECT TYRONE Stop: 03/06/17 16:55 Vancomycin HCl 750 mg/ Sodium (Chloride) 250 mls @ 166.667 mls/hr IV Q24H TYRONE Insulin Aspart (Novolog) 0 units SUB-Q Q6HR TYRONE PRN Reason: Protocol Levothyroxine Sodium (Synthroid) 112 mcg PO DAILY@0600 [facility] Last Admin: 03/05/17 07:06 Dose: 112 mcg Levothyroxine Sodium (Synthroid) 25 mcg PO DAILY@0600 [facility] Last Admin: 03/05/17 07:07 Dose: 25 mcg Magnesium Hydroxide (Milk Of Magnesia) 30 ml PO Q4H PRN PRN Reason: Constipation Ondansetron HCl (Zofran) 4 mg IV Q8H PRN PRN Reason: N/V unrelieved by Augusto Vancomycin HCl (Vancomycin Pharmacy To Dose) 1 each IV PKCONSULT [facility] PRN Reason: Protocol Review of Systems All systems: negative (negative except as noted above) Exam - Vital Signs Vital signs: Vital Signs Temp Pulse Resp BP Pulse Ox 98.2 F 64 18 88/42 89 03/04/17 16:01 03/04/17 16:01 03/04/17 16:01 03/04/17 16:01 03/04/17 16:01 - General Appearance General appearance: well-developed, well-nourished, appears stated age EENT: PERRL, mucous membranes dry Neck: Present: neck supple, trachea midline. Absent: JVD/HJR, Masses Respiratory: Clear to Ascultation Heart: regular, normal heart rate, S1S2, no murmurs Gastrointestinal: Present: normal, normoactive bowel sounds Integumentary: no rash, other (no edema) Results - Lab Results 03/05/17 06:53 03/05/17 07:08 Most recent lab results Calcium 7.2 mg/dL (8.4-10.2) L 03/05/17 07:08 Magnesium 2.60 mg/dL (1.7-2.3) H 03/04/17 16:40 Assessment and Plan Impression * Acute renal failure. Patient's serum creatinine was 1.3 in October 2016 * Hypernatremia * Hypokalemia * Altered mental status * Coronary artery disease. Status post bypass surgery * Hypotension * Possible sepsis * History of gross hematuria * Diabetes Recommendations * Patient most likely has prerenal azotemia. However due need to consider progression to ATN * Need to rule out other causes of acute kidney injury as well * Renal ultrasound reported as being normal. No hydronephrosis. * His urine shows minimal protein and small blood. Shall check a fractional excretion of sodium. His urine specific gravity is 1.015 * Continue vigorous IV hydration. * Patient is still hypotensive. Shall change his IV fluid from D5W to half- normal saline at this time * Continue potassium supplement * Avoid nephrotoxins * Strict intake and output * Monitor patient's renal function and electrolytes closely * Discussed with patient and daughter at bedside * Thank you very much for the consultation. Shall follow along with you
[2017-03-05] MEDS ORDERED: NACL 0.45% 1000 ML 1,000 ML with KCL 20 MEQ IV SCH (13:00)
--- NOTE | 2017-03-05 13:05 | XRay Report ---
SUPINE KUB: History: Abdominal distention. The abdominal gas pattern is unremarkable. No masses or organomegaly is identified and there is no gross evidence of free air or fluid. No significant soft tissue calcifications are noted. IMPRESSION: Normal study.
[2017-03-05] MEDS: NOVOLOG SUB-Q SCH ×2 (14:03→18:16)
[2017-03-05 20:39] LABS: BUN/Creatinine Ratio 29.14; Calcium 7.1 mg/dL (8.4-10.2); Chloride 104.6 mmol/L (98-107); Potassium 3.6 mmol/L (3.6-5.0)
[2017-03-05] MEDS: ZOSYN/NS 2.25 GM/50ML 2.25 GM/50 ML BAG IV SCH (22:20)
[2017-03-06] MEDS: NOVOLOG SUB-Q SCH ×4 (00:45→23:40)
[2017-03-06] MEDS ORDERED: KCL 20 MEQ in D5W 1,000 ML IV SCH (02:00)
[2017-03-06] MEDS: SYNTHROID PO SCH ×2 (06:42)
--- NOTE | 2017-03-06 07:46 | Admit Criteria Form ---
Admission Criteria Documentation: SEPSIS and OTHER FEBRILE ILLNESS, W/O FOCAL INFECTION Clinical Indications for Admission to Inpatient Care ( Place 'X' for any and all applicable criteria): Admission is indicated for ANY ONE of the following (1)(2)(3)(4): [ ] I. Bacteremia [ ]II. Suspected or identified specific infection requiring hospitalization (eg, meningitis, endocarditis) [X]III. Hemodynamic instability [X]IV. Altered mental status [ ]V. Failure or unavailability of outpatient antimicrobial treatment [X]. Hypoxemia [ ]VII. Seizures [ ]VIII. High-risk febrile neutropenia [ ]IX. Need for parenteral antibiotic in patient who is likely to abuse vascular access device (eg, injection drug user) [A](7) [ ]X. Temperature greater than 104.9 degrees F (40.5 degrees C) (oral) [X ]XI. Inpatient admission required rather than observation care because of ANY ONE of the following: [ ]1) Specific infection identified that is too severe for outpatient treatment or observation care trial [ ]2) Metabolic disorder (eg, hypoglycemia, hyperglycemia, metabolic acidosis) that is severe or persistent [ ]3) Temperature greater than 103.1 degrees F (39.5 degrees C) ( oral) that is not responsive to observation care treatment [ ]4) IV fluid to replace significant ongoing (eg, for over 24 hours) losses (> 3 L/m2 per day) [ ]5) Supplemental oxygen or respiratory treatments for over 24 hours that is performable only in acute inpatient setting [ ]6) Parenteral nutrition regimen need that must be implemented on inpatient basis [ ]7) Strict or protective (eg, laminar flow) isolation [X]8) Other condition, treatment or monitoring requiring inpatient admission Extended stay beyond goal length of stay may be needed for(1)(3) [ ]a) Sepsis or septic shock(22) [ ]b) Positive blood cultures [ ]c) Insufficient oral intake [ ]d) High-risk febrile neutropenia(29)(30) [ ]e) Continued fever and clinical instability [ ]f) Clinically active comorbid illness (e.g,heart failure, renal failure , diabetes) The original [facility] [employer] content created by Rita Payne has been revised. The portions of the content which have been revised are identified through the use of italic text or in bold, and Rita Payne has neither reviewed nor approved the modified material. All other unmodified content is copyright [facility]. Please see references footnoted in the original [facility] edition 2016 Admission Criteria Met: Yes
--- NOTE | 2017-03-06 09:20 | Progress Note ---
Assessment and Plan Impression * Acute renal failure. Patient's serum creatinine was 1.3 in October 2016 * Hypernatremia * Hypokalemia - resolved * Altered mental status * Coronary artery disease. Status post bypass surgery * Hypotension * Possible sepsis --Blood cx 1/2 [employer] EX[employer]LLER O[employer] * History of gross hematuria * Diabetes Recommendations * Renal function unchanged. BUN>100 and Na 150. No IVF infusing at time of visit * Resume 1/2 NS 100ml/hour * Strict I/O * Will follow up on pending serologies * Renal u/s no hydronephrosis * Abx per primary team * Avoid nephrotoxins * Strict intake and output * Monitor patient's renal function and electrolytes closely Subjective Date of service: 03/06/17 Interval history: Patient has no complaints. He denies SOB. Objective - Vital Signs Vital signs: Vital Signs - 12hr 03/05/17 03/06/17 03/06/17 22:00 00:20 04:36 Temperature 97.6 F 98.1 F Pulse Rate [ 68 64 Left Radial] Respiratory 20 20 Rate Blood Pressure 101/66 100/68 [Left Radial Artery] O2 Sat by Pulse 94 94 94 Oximetry 03/06/17 08:48 Temperature 97.3 F L Pulse Rate [ 72 Left Radial] Respiratory 16 Rate Blood Pressure 106/74 [Left Radial Artery] O2 Sat by Pulse 99 Oximetry - General Appearance General appearance: well-developed EENT: ATNC Respiratory: Present: Decreased Breath Sounds Cardiology: regular, S1S2 Gastrointestinal: normal, no tenderness, no distended Integumentary: no rash Musculoskeletal: other (no edema) Psychiatric: cooperative - Lab 03/05/17 06:53 03/05/17 19:54 Most recent lab results Calcium 7.1 mg/dL (8.4-10.2) L 03/05/17 19:54 Magnesium 2.60 mg/dL (1.7-2.3) H 03/04/17 16:40
--- NOTE | 2017-03-06 10:04 | XRay Report ---
CHEST ONE VIEW INDICATION: Cough, sepsis. COMPARISON: 03/04/17. FINDINGS: Portable, single, frontal chest radiograph again demonstrates normal cardiomediastinal silhouette. Clear lungs. Stable sternotomy wires and bony degenerative changes. CONCLUSION: No acute disease in the chest, stable. Thank you for the opportunity to participate in this patient's care.
[2017-03-06 12:08] LABS: BUN/Creatinine Ratio 31.17; Calcium 7.4 mg/dL (8.4-10.2); Chloride 108.2 mmol/L (98-107); Potassium 3.2 mmol/L (3.6-5.0)
[2017-03-06] MEDS: ZOSYN/NS 2.25 GM/50ML 2.25 GM/50 ML BAG IV SCH ×6 (12:51→21:17)
--- NOTE | 2017-03-06 13:39 | Progress Note ---
Assessment and Plan Assessment and plan: 81-year-old man who was brought in by his family for altered mental status. Apparently at baseline he is conversant even though he requires assistance with activities of daily living, he was found to be confused and groggy and nonresponsive therefore he was brought into the hospital. He was obtunded and hypotensive in the ER and felt to be secondary to sepsis. During hospitalization patient noted also to have acute kidney injury which was present on admission and has not resolved despite initial fluids. 1. Suspected Sepsis due to gram-positive [id number] staph likely contaminant UA wnl, CXR no infiltrate Continue current antibiotics, add vancomycin for suspicion of staph-if no fever in a.m. we'll discontinue antibiotics and monitor. Follow-up finalize cultures, continue IV fluids, continue sepsis protocol Repeat CXR today unrevealing 2. Toxic metabolic encephalopathy Multifactorial could be secondary to uremic syndrome. 3. 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 hypokalemia Continue K replacements 5. VITALY likely multifactorial likely due to vasomotor nephropathy and acute tubular nephrosis IV fluids were started by supply coordinator kidney ultrasound was unremarkable, nephrology consult 6. Severe protein calorie malnutrition Nutritional consultation 7. Hypotension Resolving continue gentle hydration 8. Diabetes mellitus Blood sugar but improved this morning discussed with nursing staff to obtain full med rec when family available. 9. History of gross bacteriuria 10. Thrombocytopenia-stable no overt bleeding noted will continue to monitor. This patient is demented, re attempted to contact family unable to leave a message today. Assist us to notify physician if family presents to the hospital History Interval history: Patient's son examined this morning in no acute distress. He is always in the hospital is always a diabetic but no other information was forthcoming. He denies any nausea vomiting or diarrhea. He is intermittently confused. No other adverse events reported by nursing staff. Hospitalist Physical - Physical exam Narrative exam: VITAL SIGNS: Reviewed. GENERAL: The patient appeared well nourished and normally developed. Vital signs as documented. HEAD: No signs of head trauma. EYES: Pupils are equal. Extraocular motions intact. EARS: Hearing grossly intact. MOUTH: Oropharynx is normal. NECK: No adenopathy, no JVD. CHEST: Chest with clear breath sounds bilaterally. No wheezes, rales, or rhonchi. CARDIAC: Regular rate and rhythm. S1 and S2, without murmurs, gallops, or rubs. VASCULAR: No Edema. Peripheral pulses normal and equal in all extremities. ABDOMEN: Soft, without detectable tenderness. No sign of distention. No rebound or guarding, and no masses palpated. Bowel Sounds normal. MUSCULOSKELETAL: Good range of motion of all major joints. Extremities without clubbing, cyanosis or edema. NEUROLOGIC EXAM: Alert and oriented x person and place worse and waning mentation. Consequently place in his hands and his genital area. Otherwise No focal sensory or strength deficits. Speech normal. Follows commands. PSYCHIATRIC: Mood normal. SKIN: No rash or lesions. - Constitutional Vitals: Temp Pulse Resp BP Pulse Ox 98.0 F 60 18 123/57 100 03/06/17 12:39 03/06/17 12:39 03/06/17 12:39 03/06/17 12:39 03/06/17 12:00 General appearance: Present: mild distress Results - Labs CBC & Chem 7: 03/05/17 06:53 03/06/17 10:30 Labs: Laboratory Last Values WBC 9.8 K/mm3 (4.5-11.0) 03/05/17 06:53 RBC 4.53 M/mm3 (3.65-5.03) 03/05/17 06:53 Hgb 12.2 gm/dl (11.8-15.2) 03/05/17 06:53 Hct 39.1 % (35.5-45.6) 03/05/17 06:53 MCV 86 fl (84-94) 03/05/17 06:53 MCH 27 pg (28-32) L 03/05/17 06:53 MCHC 31 % (32-34) L 03/05/17 06:53 RDW 21.1 % (13.2-15.2) H 03/05/17 06:53 Plt Count 95 K/mm3 (140-440) L 03/05/17 06:53 Lymph % (Auto) 15.0 % (13.4-35.0) 03/05/17 06:53 Swisher % (Auto) 5.4 % (0.0-7.3) 03/05/17 06:53 Eos % (Auto) 0.0 % (0.0-4.3) 03/05/17 06:53 Baso % (Auto) 0.2 % (0.0-1.8) 03/05/17 06:53 Lymph # 1.5 K/mm3 (1.2-5.4) 03/05/17 06:53 Swisher # 0.5 K/mm3 (0.0-0.8) 03/05/17 06:53 Eos # 0.0 K/mm3 (0.0-0.4) 03/05/17 06:53 Baso # 0.0 K/mm3 (0.0-0.1) 03/05/17 06:53 Seg Neutrophils % 79.4 % (40.0-70.0) H 03/05/17 06:53 Seg Neutrophils # 7.8 K/mm3 (1.8-7.7) H 03/05/17 06:53 POC ABG pH 7.449 (7.35-7.45) 03/04/17 16:45 POC ABG pCO2 48.5 (35-45) H 03/04/17 16:45 POC ABG pO2 79 (80-105) L 03/04/17 16:45 POC ABG HCO3 33.7 03/04/17 16:45 POC ABG Total CO2 35 03/04/17 16:45 POC ABG O2 Sat 96 03/04/17 16:45 POC ABG Base Excess 10 03/04/17 16:45 FiO2 21 % 03/04/17 16:45 Sodium 156 mmol/L (137-145) H 03/06/17 10:30 Potassium 3.2 mmol/L (3.6-5.0) L 03/06/17 10:30 Chloride 108.2 mmol/L (98-107) H 03/06/17 10:30 Carbon Dioxide 31 mmol/L (22-30) H 03/06/17 10:30 Anion Gap 20 mmol/L 03/06/17 10:30 BUN 106 mg/dL (9-20) H 03/06/17 10:30 Creatinine 3.4 mg/dL (0.8-1.5) H 03/06/17 10:30 Estimated GFR 21 ml/min 03/06/17 10:30 BUN/Creatinine Ratio 31.17 % 03/06/17 10:30 Glucose 122 mg/dL (75-100) H 03/06/17 10:30 POC Glucose 139 (70-105) H 03/06/17 11:54 Lactic Acid 1.40 mmol/L (0.7-2.0) 03/04/17 20:41 Calcium 7.4 mg/dL (8.4-10.2) L 03/06/17 10:30 Magnesium 2.60 mg/dL (1.7-2.3) H 03/04/17 16:40 Total Bilirubin 0.80 mg/dL (0.1-1.2) 03/04/17 16:40 AST 32 units/L (5-40) 03/04/17 16:40 ALT 19 units/L (7-56) 03/04/17 16:40 Alkaline Phosphatase 90 units/L (35-129) 03/04/17 16:40 Ammonia 34.0 umol/L (25-60) 03/04/17 17:04 Total Creatine Kinase 420 units/L (55-170) H 03/04/17 16:40 Total Protein 6.2 g/dL (6.3-8.2) L 03/04/17 16:40 Albumin 2.5 g/dL (3.9-5) L 03/04/17 16:40 Albumin/Globulin Ratio 0.7 % 03/04/17 16:40 TSH 10.230 mlU/mL (0.270-4.200) H 03/04/17 16:40 Free T4 0.89 ng/dL (0.76-1.46) 03/04/17 20:41 Urine Color Francheska (Yellow) 03/04/17 15:00 Urine Turbidity Clear (Clear) 03/04/17 15:00 Urine pH 5.0 (5.0-7.0) 03/04/17 15:00 Ur Specific [place] 1.017 (1.003-1.030) 03/04/17 15:00 Urine Protein <15 mg/dl mg/dL (Negative) 03/04/17 15:00 Urine Glucose (UA) Neg mg/dL (Negative) 03/04/17 15:00 Urine Ketones Neg mg/dL (Negative) 03/04/17 15:00 Urine Blood Sm (Negative) 03/04/17 15:00 Urine Nitrite Neg (Negative) 03/04/17 15:00 Urine Bilirubin Neg (Negative) 03/04/17 15:00 Urine Urobilinogen < 2.0 mg/dL (<2.0) 03/04/17 15:00 Ur Leukocyte Esterase Neg (Negative) 03/04/17 15:00 Urine WBC (Auto) < 1.0 /HPF (0.0-6.0) 03/04/17 15:00 Urine RBC (Auto) < 1.0 /HPF (0.0-6.0) 03/04/17 15:00 U Epithel Cells (Auto) < 1.0 /HPF (0-13.0) 03/04/17 15:00 Urine Osmolality 351 Mosm/kg 03/05/17 14:08 Salicylates < 0.3 mg/dL (2.8-20.0) L 03/04/17 16:40 Urine Opiates Screen Presumptive negative 03/04/17 15:00 Urine Methadone Screen Presumptive negative 03/04/17 15:00 Acetaminophen < 15.0 ug/mL (10.0-30.0) 03/04/17 16:40 Ur Barbiturates Screen Presumptive negative 03/04/17 15:00 Ur Phencyclidine Scrn Presumptive negative 03/04/17 15:00 Ur Amphetamines Screen Presumptive negative 03/04/17 15:00 U Benzodiazepines Scrn Presumptive negative 03/04/17 15:00 Urine Cocaine Screen Presumptive negative 03/04/17 15:00 U Marijuana (THC) Screen Presumptive negative 03/04/17 15:00 Drugs of Abuse Note Disclamer 03/04/17 15:00 Plasma/Serum Alcohol < 0.01 gm% (0-0.07) 03/04/17 16:40 Hep B Core IgM Ab Non-reactive (NonReactive) 03/05/17 07:08 Hepatitis C Antibody Non-reactive (NonReactive) 03/05/17 07:08
[2017-03-06] MEDS ORDERED: K-DUR PO ONE (14:15)
[2017-03-06] MEDS ORDERED: LEVAQUIN 500MG/100ML 500 MG/100 ML BAG IV SCH (19:00)
[2017-03-06] MEDS: NACL 0.45% 1000 ML 1,000 ML IV SCH (19:44)
[2017-03-07] MEDS: NOVOLOG SUB-Q SCH ×3 (02:16→12:04)
[2017-03-07] MEDS: ZOSYN/NS 2.25 GM/50ML 2.25 GM/50 ML BAG IV SCH ×3 (04:22→12:03)
[2017-03-07] MEDS: NACL 0.45% 1000 ML 1,000 ML IV SCH (04:23)
[2017-03-07 05:52] LABS: BUN/Creatinine Ratio 33.1; Calcium 7.1 mg/dL (8.4-10.2); Potassium 3.5 mmol/L (3.6-5.0)
[2017-03-07 05:55] LABS: BUN/Creatinine Ratio 33.1; Chloride 107.3 mmol/L (98-107)
[2017-03-07] MEDS: SYNTHROID PO SCH ×2 (05:56)
[2017-03-07 06:16] LABS: Potassium 3.8 mmol/L (3.6-5.0)
--- NOTE | 2017-03-07 07:57 | Progress Note ---
Assessment and Plan Assessment and plan: 81-year-old man who was brought in by his family for altered mental status. Apparently at baseline he is conversant even though he requires assistance with activities of daily living, he was found to be confused and groggy and nonresponsive therefore he was brought into the hospital. He was obtunded and hypotensive in the ER and felt to be secondary to sepsis. During hospitalization patient noted also to have acute kidney injury which was present on admission and has not resolved despite initial fluids. 1. Suspected Sepsis due to gram-positive [id number] staph likely contaminant-Ruled out UA wnl, CXR no infiltrate Treated with Vanco, considering no fever, will discontinue abx. Follow-up finalize cultures, continue IV fluids, Repeat CXR today unrevealing 2. Toxic metabolic encephalopathy Multifactorial could be secondary to uremic syndrome. 3. 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 hypokalemia Continue K replacements 5. VITALY likely multifactorial likely due to vasomotor nephropathy and acute tubular nephrosis IV fluids were started by software test and validation engineer kidney ultrasound was unremarkable, Continue to monitor 6. Severe protein calorie malnutrition Nutritional consultation 7. Hypotension Resolved 8. Diabetes mellitus Continue insulin. 9. History of gross bacteriuria 10. Thrombocytopenia-stable no overt bleeding noted will continue to monitor. This patient is demented, re attempted to contact family unable to leave a message today. History Interval history: Patient's son examined this morning in no acute distress. Continues to improve although waxes and wanes mentation. No other recent events reported by nursing staff. Hospitalist Physical - Physical exam Narrative exam: VITAL SIGNS: Reviewed. GENERAL: The patient appeared well nourished and normally developed. Vital signs as documented. HEAD: No signs of head trauma. EYES: Pupils are equal. Extraocular motions intact. EARS: Hearing grossly intact. MOUTH: Oropharynx is normal. NECK: No adenopathy, no JVD. CHEST: Chest with clear breath sounds bilaterally. No wheezes, rales, or rhonchi. CARDIAC: Regular rate and rhythm. S1 and S2, without murmurs, gallops, or rubs. VASCULAR: No Edema. Peripheral pulses normal and equal in all extremities. ABDOMEN: Soft, without detectable tenderness. No sign of distention. No rebound or guarding, and no masses palpated. Bowel Sounds normal. MUSCULOSKELETAL: Good range of motion of all major joints. Extremities without clubbing, cyanosis or edema. NEUROLOGIC EXAM: Alert and oriented person and place waxes and waning mentation. Consequently place in his hands and his genital area. Otherwise No focal sensory or strength deficits. Speech normal. Follows commands. PSYCHIATRIC: Mood normal. SKIN: No rash or lesions. - Constitutional Vitals: Temp Pulse Resp BP Pulse Ox 97.1 F L 67 20 129/80 97 03/07/17 04:32 03/07/17 04:32 03/07/17 04:32 03/07/17 04:32 03/07/17 04:32 General appearance: Present: mild distress Results - Labs CBC & Chem 7: 03/05/17 06:53 03/07/17 03:54 Labs: Laboratory Last Values WBC 9.8 K/mm3 (4.5-11.0) 03/05/17 06:53 RBC 4.53 M/mm3 (3.65-5.03) 03/05/17 06:53 Hgb 12.2 gm/dl (11.8-15.2) 03/05/17 06:53 Hct 39.1 % (35.5-45.6) 03/05/17 06:53 MCV 86 fl (84-94) 03/05/17 06:53 MCH 27 pg (28-32) L 03/05/17 06:53 MCHC 31 % (32-34) L 03/05/17 06:53 RDW 21.1 % (13.2-15.2) H 03/05/17 06:53 Plt Count 95 K/mm3 (140-440) L 03/05/17 06:53 Lymph % (Auto) 15.0 % (13.4-35.0) 03/05/17 06:53 Dundy % (Auto) 5.4 % (0.0-7.3) 03/05/17 06:53 Eos % (Auto) 0.0 % (0.0-4.3) 03/05/17 06:53 Baso % (Auto) 0.2 % (0.0-1.8) 03/05/17 06:53 Lymph # 1.5 K/mm3 (1.2-5.4) 03/05/17 06:53 Dundy # 0.5 K/mm3 (0.0-0.8) 03/05/17 06:53 Eos # 0.0 K/mm3 (0.0-0.4) 03/05/17 06:53 Baso # 0.0 K/mm3 (0.0-0.1) 03/05/17 06:53 Seg Neutrophils % 79.4 % (40.0-70.0) H 03/05/17 06:53 Seg Neutrophils # 7.8 K/mm3 (1.8-7.7) H 03/05/17 06:53 POC ABG pH 7.449 (7.35-7.45) 03/04/17 16:45 POC ABG pCO2 48.5 (35-45) H 03/04/17 16:45 POC ABG pO2 79 (80-105) L 03/04/17 16:45 POC ABG HCO3 33.7 03/04/17 16:45 POC ABG Total CO2 35 03/04/17 16:45 POC ABG O2 Sat 96 03/04/17 16:45 POC ABG Base Excess 10 03/04/17 16:45 FiO2 21 % 03/04/17 16:45 Sodium 152 mmol/L (137-145) H 03/07/17 03:54 Potassium 3.8 mmol/L (3.6-5.0) 03/07/17 03:54 Chloride 107.3 mmol/L (98-107) H 03/07/17 03:54 Carbon Dioxide 23 mmol/L (22-30) D 03/07/17 03:54 Anion Gap 26 mmol/L 03/07/17 03:54 BUN 96 mg/dL (9-20) H 03/07/17 03:54 Creatinine 2.9 mg/dL (0.8-1.5) H 03/07/17 03:54 Estimated GFR 25 ml/min 03/07/17 03:54 BUN/Creatinine Ratio 33.10 % 03/07/17 03:54 Glucose 169 mg/dL (75-100) H 03/07/17 03:54 POC Glucose 180 (70-105) H 03/07/17 05:44 Lactic Acid 1.40 mmol/L (0.7-2.0) 03/04/17 20:41 Calcium 7.1 mg/dL (8.4-10.2) L 03/07/17 03:54 Magnesium 2.60 mg/dL (1.7-2.3) H 03/04/17 16:40 Total Bilirubin 0.80 mg/dL (0.1-1.2) 03/04/17 16:40 AST 32 units/L (5-40) 03/04/17 16:40 ALT 19 units/L (7-56) 03/04/17 16:40 Alkaline Phosphatase 90 units/L (35-129) 03/04/17 16:40 Ammonia 34.0 umol/L (25-60) 03/04/17 17:04 Total Creatine Kinase 420 units/L (55-170) H 03/04/17 16:40 Total Protein 6.2 g/dL (6.3-8.2) L 03/04/17 16:40 Albumin 2.5 g/dL (3.9-5) L 03/04/17 16:40 Albumin/Globulin Ratio 0.7 % 03/04/17 16:40 TSH 10.230 mlU/mL (0.270-4.200) H 03/04/17 16:40 Free T4 0.89 ng/dL (0.76-1.46) 03/04/17 20:41 Urine Color Francheska (Yellow) 03/04/17 15:00 Urine Turbidity Clear (Clear) 03/04/17 15:00 Urine pH 5.0 (5.0-7.0) 03/04/17 15:00 Ur Specific Calder 1.017 (1.003-1.030) 03/04/17 15:00 Urine Protein <15 mg/dl mg/dL (Negative) 03/04/17 15:00 Urine Glucose (UA) Neg mg/dL (Negative) 03/04/17 15:00 Urine Ketones Neg mg/dL (Negative) 03/04/17 15:00 Urine Blood Sm (Negative) 03/04/17 15:00 Urine Nitrite Neg (Negative) 03/04/17 15:00 Urine Bilirubin Neg (Negative) 03/04/17 15:00 Urine Urobilinogen < 2.0 mg/dL (<2.0) 03/04/17 15:00 Ur Leukocyte Esterase Neg (Negative) 03/04/17 15:00 Urine WBC (Auto) < 1.0 /HPF (0.0-6.0) 03/04/17 15:00 Urine RBC (Auto) < 1.0 /HPF (0.0-6.0) 03/04/17 15:00 U Epithel Cells (Auto) < 1.0 /HPF (0-13.0) 03/04/17 15:00 Urine Osmolality 351 Mosm/kg 03/05/17 14:08 Salicylates < 0.3 mg/dL (2.8-20.0) L 03/04/17 16:40 Urine Opiates Screen Presumptive negative 03/04/17 15:00 Urine Methadone Screen Presumptive negative 03/04/17 15:00 Acetaminophen < 15.0 ug/mL (10.0-30.0) 03/04/17 16:40 Ur Barbiturates Screen Presumptive negative 03/04/17 15:00 Ur Phencyclidine Scrn Presumptive negative 03/04/17 15:00 Ur Amphetamines Screen Presumptive negative 03/04/17 15:00 U Benzodiazepines Scrn Presumptive negative 03/04/17 15:00 Urine Cocaine Screen Presumptive negative 03/04/17 15:00 U Marijuana (THC) Screen Presumptive negative 03/04/17 15:00 Drugs of Abuse Note Disclamer 03/04/17 15:00 Plasma/Serum Alcohol < 0.01 gm% (0-0.07) 03/04/17 16:40 Hep B Core IgM Ab Non-reactive (NonReactive) 03/05/17 07:08 Hepatitis C Antibody Non-reactive (NonReactive) 03/05/17 07:08
--- NOTE | 2017-03-07 09:15 | Progress Note ---
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 Objective - Vital Signs Vital signs: Vital Signs - 12hr 03/06/17 03/07/17 03/07/17 21:29 01:13 04:32 Temperature 97.1 F L 97.1 F L Pulse Rate [ 60 67 Left Radial] Respiratory 20 20 Rate Blood Pressure 91/55 129/80 [Left Radial Artery] O2 Sat by Pulse 96 100 97 Oximetry - General Appearance General appearance: well-developed, well-nourished EENT: ATNC Respiratory: Present: Clear to Ascultation Cardiology: regular, S1S2 Gastrointestinal: normal, no tenderness, no distended Integumentary: no rash Musculoskeletal: other (no edema) - Lab 03/05/17 06:53 03/07/17 03:54 Most recent lab results Calcium 7.1 mg/dL (8.4-10.2) L 03/07/17 03:54 Magnesium 2.60 mg/dL (1.7-2.3) H 03/04/17 16:40
[2017-03-07 19:25] LABS: Myeloperoxidase Antibody <1.0 AI (<1.0)
[2017-03-08] MEDS: NACL 0.45% 1000 ML 1,000 ML IV SCH ×2 (02:34→23:28)
[2017-03-08 06:19] LABS: Chloride 106.1 mmol/L (98-107)
[2017-03-08 06:34] LABS: Potassium 2.7 mmol/L (3.6-5.0)
[2017-03-08] MEDS: SYNTHROID PO SCH ×2 (06:52)
[2017-03-08] MEDS: NOVOLOG SUB-Q SCH ×4 (06:53→19:05)
--- NOTE | 2017-03-08 09:23 | Progress Note ---
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 * History of gross hematuria * Type II DM Recommendations * Continue IVF - patient hypotensive with SBP in 80s * Note order for IV KCl * Will follow up on pending serologies * Abx per primary team * Avoid nephrotoxins * Strict intake and output * Monitor patient's renal function and electrolytes closely Subjective Date of service: 03/08/17 Objective - Vital Signs Vital signs: Vital Signs - 12hr 03/07/17 03/08/17 03/08/17 22:04 00:00 04:00 Temperature 98.1 F 97.7 F Pulse Rate 67 Pulse Rate [ 65 62 Left Radial] Respiratory 18 18 Rate Blood Pressure 91/54 98/58 [Left Radial Artery] Blood Pressure [Right Arm] O2 Sat by Pulse 96 97 Oximetry 03/08/17 07:45 Temperature 97.3 F L Pulse Rate Pulse Rate [ 68 Left Radial] Respiratory 20 Rate Blood Pressure [Left Radial Artery] Blood Pressure 86/51 [Right Arm] O2 Sat by Pulse 98 Oximetry - Lab 03/05/17 06:53 03/08/17 05:27 Most recent lab results Calcium 7.0 mg/dL (8.4-10.2) L 03/08/17 05:27 Magnesium 2.60 mg/dL (1.7-2.3) H 03/04/17 16:40
[2017-03-08] MEDS ORDERED: NACL 0.9% 1000 ML 1,000 ML IV ONE (10:30)
[2017-03-08] MEDS: KCL 10MEQ/100ML 10 MEQ/100 ML BAG IV SCH ×4 (11:04→14:34)
--- NOTE | 2017-03-08 17:59 | Progress Note ---
Assessment and Plan Assessment and plan: 81-year-old man who was brought in by his family for altered mental status. Apparently at baseline he is conversant even though he requires assistance with activities of daily living, he was found to be confused and groggy and nonresponsive therefore he was brought into the hospital. He was obtunded and hypotensive in the ER and felt to be secondary to sepsis. During hospitalization patient noted also to have acute kidney injury which was present on admission and has not resolved despite initial fluids. 1. Suspected Sepsis due to gram-positive mknmffzqgl-wqhronyut-yygublxm staph likely contaminant-Ruled out UA wnl, CXR no infiltrate Continue to monitor off Abx Repeat CXR unrevealing 2. Toxic metabolic encephalopathy Multifactorial could be secondary to uremic syndrome. 3. 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 hypokalemia Continue K replacements- RECHECK IN AM 5. VITALY likely multifactorial likely due to vasomotor nephropathy and acute tubular nephrosis Anesthesia Director following, will give more fluids. kidney ultrasound was unremarkable. 6. Severe protein calorie malnutrition Nutritional consultation 7. Hypotension Will give bolus of fluids as this could be contributing to the worsening renal function 8. Diabetes mellitus Continue insulin. 9. History of gross bacteriuria 10. Thrombocytopenia-stable no overt bleeding noted will continue to monitor. This patient is demented, re attempted to contact family unable to leave a message today. History Interval history: Patient's son examined this morning in no acute distress. remains at baseline. No other recent events reported by nursing staff. Hospitalist Physical - Physical exam Narrative exam: VITAL SIGNS: Reviewed. GENERAL: The patient appeared well nourished and normally developed. Vital signs as documented. HEAD: No signs of head trauma. EYES: Pupils are equal. Extraocular motions intact. EARS: Hearing grossly intact. MOUTH: Oropharynx is normal. NECK: No adenopathy, no JVD. CHEST: Chest with clear breath sounds bilaterally. No wheezes, rales, or rhonchi. CARDIAC: Regular rate and rhythm. S1 and S2, without murmurs, gallops, or rubs. VASCULAR: No Edema. Peripheral pulses normal and equal in all extremities. ABDOMEN: Soft, without detectable tenderness. No sign of distention. No rebound or guarding, and no masses palpated. Bowel Sounds normal. MUSCULOSKELETAL: Good range of motion of all major joints. Extremities without clubbing, cyanosis or edema. NEUROLOGIC EXAM: Alert and oriented person and place waxes and waning mentation. Consequently place in his hands and his genital area. Otherwise No focal sensory or strength deficits. Speech normal. Follows commands. PSYCHIATRIC: Mood normal. SKIN: No rash or lesions. - Constitutional Vitals: Temp Pulse Resp BP Pulse Ox 97.4 F L 68 20 88/45 97 03/08/17 11:50 03/08/17 11:50 03/08/17 11:50 03/08/17 11:50 03/08/17 11:50 General appearance: Present: mild distress Results - Labs CBC & Chem 7: 03/05/17 06:53 03/08/17 05:27 Labs: Laboratory Last Values WBC 9.8 K/mm3 (4.5-11.0) 03/05/17 06:53 RBC 4.53 M/mm3 (3.65-5.03) 03/05/17 06:53 Hgb 12.2 gm/dl (11.8-15.2) 03/05/17 06:53 Hct 39.1 % (35.5-45.6) 03/05/17 06:53 MCV 86 fl (84-94) 03/05/17 06:53 MCH 27 pg (28-32) L 03/05/17 06:53 MCHC 31 % (32-34) L 03/05/17 06:53 RDW 21.1 % (13.2-15.2) H 03/05/17 06:53 Plt Count 95 K/mm3 (140-440) L 03/05/17 06:53 Lymph % (Auto) 15.0 % (13.4-35.0) 03/05/17 06:53 [place] % (Auto) 5.4 % (0.0-7.3) 03/05/17 06:53 Eos % (Auto) 0.0 % (0.0-4.3) 03/05/17 06:53 Baso % (Auto) 0.2 % (0.0-1.8) 03/05/17 06:53 Lymph # 1.5 K/mm3 (1.2-5.4) 03/05/17 06:53 [place] # 0.5 K/mm3 (0.0-0.8) 03/05/17 06:53 Eos # 0.0 K/mm3 (0.0-0.4) 03/05/17 06:53 Baso # 0.0 K/mm3 (0.0-0.1) 03/05/17 06:53 Seg Neutrophils % 79.4 % (40.0-70.0) H 03/05/17 06:53 Seg Neutrophils # 7.8 K/mm3 (1.8-7.7) H 03/05/17 06:53 POC ABG pH 7.449 (7.35-7.45) 03/04/17 16:45 POC ABG pCO2 48.5 (35-45) H 03/04/17 16:45 POC ABG pO2 79 (80-105) L 03/04/17 16:45 POC ABG HCO3 33.7 03/04/17 16:45 POC ABG Total CO2 35 03/04/17 16:45 POC ABG O2 Sat 96 03/04/17 16:45 POC ABG Base Excess 10 03/04/17 16:45 FiO2 21 % 03/04/17 16:45 Sodium 151 mmol/L (137-145) H 03/08/17 05:27 Potassium 2.7 mmol/L (3.6-5.0) L* D 03/08/17 05:27 Chloride 106.1 mmol/L (98-107) 03/08/17 05:27 Carbon Dioxide 28 mmol/L (22-30) 03/08/17 05:27 Anion Gap 20 mmol/L 03/08/17 05:27 BUN 93 mg/dL (9-20) H 03/08/17 05:27 Creatinine 3.1 mg/dL (0.8-1.5) H 03/08/17 05:27 Estimated GFR 23 ml/min 03/08/17 05:27 BUN/Creatinine Ratio 30.00 % 03/08/17 05:27 Glucose 184 mg/dL (75-100) H 03/08/17 05:27 POC Glucose 193 (70-105) H 03/08/17 04:39 Lactic Acid 1.40 mmol/L (0.7-2.0) 03/04/17 20:41 Calcium 7.0 mg/dL (8.4-10.2) L 03/08/17 05:27 Magnesium 2.60 mg/dL (1.7-2.3) H 03/04/17 16:40 Total Bilirubin 0.80 mg/dL (0.1-1.2) 03/04/17 16:40 AST 32 units/L (5-40) 03/04/17 16:40 ALT 19 units/L (7-56) 03/04/17 16:40 Alkaline Phosphatase 90 units/L (35-129) 03/04/17 16:40 Ammonia 34.0 umol/L (25-60) 03/04/17 17:04 Total Creatine Kinase 420 units/L (55-170) H 03/04/17 16:40 Total Protein 6.2 g/dL (6.3-8.2) L 03/04/17 16:40 Albumin 2.5 g/dL (3.9-5) L 03/04/17 16:40 Albumin/Globulin Ratio 0.7 % 03/04/17 16:40 TSH 10.230 mlU/mL (0.270-4.200) H 03/04/17 16:40 Free T4 0.89 ng/dL (0.76-1.46) 03/04/17 20:41 Urine Color [place] (Yellow) 03/04/17 15:00 Urine Turbidity Clear (Clear) 03/04/17 15:00 Urine pH 5.0 (5.0-7.0) 03/04/17 15:00 Ur Specific [place] 1.017 (1.003-1.030) 03/04/17 15:00 Urine Protein <15 mg/dl mg/dL (Negative) 03/04/17 15:00 Urine Glucose (UA) Neg mg/dL (Negative) 03/04/17 15:00 Urine Ketones Neg mg/dL (Negative) 03/04/17 15:00 Urine Blood Sm (Negative) 03/04/17 15:00 Urine Nitrite Neg (Negative) 03/04/17 15:00 Urine Bilirubin Neg (Negative) 03/04/17 15:00 Urine Urobilinogen < 2.0 mg/dL (<2.0) 03/04/17 15:00 Ur Leukocyte Esterase Neg (Negative) 03/04/17 15:00 Urine WBC (Auto) < 1.0 /HPF (0.0-6.0) 03/04/17 15:00 Urine RBC (Auto) < 1.0 /HPF (0.0-6.0) 03/04/17 15:00 U Epithel Cells (Auto) < 1.0 /HPF (0-13.0) 03/04/17 15:00 Urine Osmolality 351 Mosm/kg 03/05/17 14:08 Salicylates < 0.3 mg/dL (2.8-20.0) L 03/04/17 16:40 Urine Opiates Screen Presumptive negative 03/04/17 15:00 Urine Methadone Screen Presumptive negative 03/04/17 15:00 Acetaminophen < 15.0 ug/mL (10.0-30.0) 03/04/17 16:40 Ur Barbiturates Screen Presumptive negative 03/04/17 15:00 Ur Phencyclidine Scrn Presumptive negative 03/04/17 15:00 Ur Amphetamines Screen Presumptive negative 03/04/17 15:00 U Benzodiazepines Scrn Presumptive negative 03/04/17 15:00 Urine Cocaine Screen Presumptive negative 03/04/17 15:00 U Marijuana (THC) Screen Presumptive negative 03/04/17 15:00 Drugs of Abuse Note Disclamer 03/04/17 15:00 Plasma/Serum Alcohol < 0.01 gm% (0-0.07) 03/04/17 16:40 TIFFANY Screen Negative (Negative) 03/05/17 14:08 Proteinase 3 (PR3) Ab <1.0 AI (<1.0) 03/05/17 14:08 Myeloperoxidase Ab <1.0 AI (<1.0) 03/05/17 14:08 Double Strand DNA Ab <1 IU/mL (<=4) 03/05/17 14:08 Complement C3 65 mg/dL (90-180) L 03/05/17 14:08 Complement C4 34 mg/dL (16-47) 03/05/17 14:08 Hep B Core IgM Ab Non-reactive (NonReactive) 03/05/17 07:08 Hepatitis C Antibody Non-reactive (NonReactive) 03/05/17 07:08
[2017-03-09] MEDS: NOVOLOG SUB-Q SCH ×6 (01:00→23:50)
[2017-03-09 04:03] LABS: Albumin 2.3 g/dL (3.8-4.8); Gamma Globulin 1.2 g/dL (0.8-1.7)
[2017-03-09 05:55] LABS: BUN/Creatinine Ratio 33.21; Calcium 6.6 mg/dL (8.4-10.2); Chloride 107.5 mmol/L (98-107)
[2017-03-09] MEDS: SYNTHROID PO SCH ×2 (06:34)
[2017-03-09] MEDS ORDERED: K-DUR PO ONE (08:00)
--- NOTE | 2017-03-09 08:44 | Progress Note ---
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 * History of gross hematuria * Type II DM Recommendations * Continue IVF for volume repletion * Will follow up on pending serologies * Abx per primary team * Avoid nephrotoxins * Strict intake and output * Monitor patient's renal function and electrolytes closely * From a renal standpoint, patient w/ electrolyte derangements and VITALY - he is not stable for discharge at this time Subjective Date of service: 03/09/17 Interval history: Patient has no complaints today Objective - Vital Signs Vital signs: Vital Signs - 12hr 03/08/17 03/08/17 03/09/17 22:00 22:16 00:00 Temperature 98.3 F Pulse Rate 61 Pulse Rate [ 62 63 Left Radial] Respiratory 21 Rate Blood Pressure [Left Radial Artery] Blood Pressure 71/34 108/55 [Right Arm] O2 Sat by Pulse 99 Oximetry 03/09/17 05:00 Temperature 97.9 F Pulse Rate Pulse Rate [ 62 Left Radial] Respiratory 19 Rate Blood Pressure 120/58 [Left Radial Artery] Blood Pressure [Right Arm] O2 Sat by Pulse 96 Oximetry - General Appearance General appearance: well-developed, well-nourished EENT: ATNC Respiratory: Present: Clear to Ascultation Cardiology: regular, S1S2 Gastrointestinal: normal, no tenderness, no distended Integumentary: no rash Musculoskeletal: other (no edema) Psychiatric: cooperative - Lab 03/05/17 06:53 03/09/17 04:40 Most recent lab results Calcium 6.6 mg/dL (8.4-10.2) L 03/09/17 04:40 Magnesium 2.60 mg/dL (1.7-2.3) H 03/04/17 16:40
[2017-03-09] MEDS: NACL 0.45% 1000 ML 1,000 ML IV SCH ×2 (10:43→21:49)
--- NOTE | 2017-03-09 14:52 | Progress Note ---
Assessment and Plan Assessment and plan: 81-year-old man who was brought in by his family for altered mental status. Apparently at baseline he is conversant even though he requires assistance with activities of daily living, he was found to be confused and groggy and nonresponsive therefore he was brought into the hospital. He was obtunded and hypotensive in the ER and felt to be secondary to sepsis. During hospitalization patient noted also to have acute kidney injury which was present on admission and has not resolved despite initial fluids. 1. Toxic metabolic encephalopathy Multifactorial could be secondary to uremic syndrome. Discussed with family and they are agree that patient is at baseline. Also reports that the patient was has been bedbound for a few months, but has no reason to be, they state that the patient declined after going to rehab and was not eating as much. The patient seems to have improved and is tolerating diet at this time. 2. 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 Still not at baseline, continue IVF 3. 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 Hypokalemia Continue K replacements- RECHECK IN AM 5. Suspected Sepsis due to gram-positive zmggsujiro-tipcyxwaa-nurfwtor staph likely contaminant-Ruled out UA wnl, CXR no infiltrate Continue to monitor off Abx Repeat CXR unrevealing 6. Severe protein calorie malnutrition Nutritional consultation 7. Hypotension Improved. 8. Diabetes mellitus Continue insulin. 9. History of gross bacteriuria- Possible 10. Thrombocytopenia-stable no overt bleeding noted will continue to monitor. This patient is demented, Discussed with the family. Discharge once renal function is close to baseline History Interval history: Patient seen and examined this morning in no acute distress. Family in the Room and reports patient is at baseline. No other recent events reported by nursing staff. Hospitalist Physical - Physical exam Narrative exam: VITAL SIGNS: Reviewed. GENERAL: The patient appeared well nourished and normally developed. Vital signs as documented. HEAD: No signs of head trauma. EYES: Pupils are equal. Extraocular motions intact. EARS: Hearing grossly intact. MOUTH: Oropharynx is normal. NECK: No adenopathy, no JVD. CHEST: Chest with clear breath sounds bilaterally. No wheezes, rales, or rhonchi. CARDIAC: Regular rate and rhythm. S1 and S2, without murmurs, gallops, or rubs. VASCULAR: No Edema. Peripheral pulses normal and equal in all extremities. ABDOMEN: Soft, without detectable tenderness. No sign of distention. No rebound or guarding, and no masses palpated. Bowel Sounds normal. MUSCULOSKELETAL: Good range of motion of all major joints. Extremities without clubbing, cyanosis or edema. NEUROLOGIC EXAM: Alert and oriented person and place waxes and waning mentation. Consequently place in his hands and his genital area. Otherwise No focal sensory or strength deficits. Speech normal. Follows commands. PSYCHIATRIC: Mood normal. SKIN: No rash or lesions. - Constitutional Vitals: Temp Pulse Resp BP Pulse Ox 98.0 F 63 18 79/52 95 03/09/17 09:47 03/09/17 13:21 03/09/17 09:47 03/09/17 13:21 03/09/17 09:47 General appearance: Present: mild distress Results - Labs CBC & Chem 7: 03/05/17 06:53 03/09/17 04:40 Labs: Laboratory Last Values WBC 9.8 K/mm3 (4.5-11.0) 03/05/17 06:53 RBC 4.53 M/mm3 (3.65-5.03) 03/05/17 06:53 Hgb 12.2 gm/dl (11.8-15.2) 03/05/17 06:53 Hct 39.1 % (35.5-45.6) 03/05/17 06:53 MCV 86 fl (84-94) 03/05/17 06:53 MCH 27 pg (28-32) L 03/05/17 06:53 MCHC 31 % (32-34) L 03/05/17 06:53 RDW 21.1 % (13.2-15.2) H 03/05/17 06:53 Plt Count 95 K/mm3 (140-440) L 03/05/17 06:53 Lymph % (Auto) 15.0 % (13.4-35.0) 03/05/17 06:53 [place] % (Auto) 5.4 % (0.0-7.3) 03/05/17 06:53 Eos % (Auto) 0.0 % (0.0-4.3) 03/05/17 06:53 Baso % (Auto) 0.2 % (0.0-1.8) 03/05/17 06:53 Lymph # 1.5 K/mm3 (1.2-5.4) 03/05/17 06:53 [place] # 0.5 K/mm3 (0.0-0.8) 03/05/17 06:53 Eos # 0.0 K/mm3 (0.0-0.4) 03/05/17 06:53 Baso # 0.0 K/mm3 (0.0-0.1) 03/05/17 06:53 Seg Neutrophils % 79.4 % (40.0-70.0) H 03/05/17 06:53 Seg Neutrophils # 7.8 K/mm3 (1.8-7.7) H 03/05/17 06:53 POC ABG pH 7.449 (7.35-7.45) 03/04/17 16:45 POC ABG pCO2 48.5 (35-45) H 03/04/17 16:45 POC ABG pO2 79 (80-105) L 03/04/17 16:45 POC ABG HCO3 33.7 03/04/17 16:45 POC ABG Total CO2 35 03/04/17 16:45 POC ABG O2 Sat 96 03/04/17 16:45 POC ABG Base Excess 10 03/04/17 16:45 FiO2 21 % 03/04/17 16:45 Sodium 150 mmol/L (137-145) H 03/09/17 04:40 Potassium 3.0 mmol/L (3.6-5.0) L 03/09/17 04:40 Chloride 107.5 mmol/L (98-107) H 03/09/17 04:40 Carbon Dioxide 27 mmol/L (22-30) 03/09/17 04:40 Anion Gap 19 mmol/L 03/09/17 04:40 BUN 93 mg/dL (9-20) H 03/09/17 04:40 Creatinine 2.8 mg/dL (0.8-1.5) H 03/09/17 04:40 Estimated GFR 26 ml/min 03/09/17 04:40 BUN/Creatinine Ratio 33.21 % 03/09/17 04:40 Glucose 82 mg/dL (75-100) 03/09/17 04:40 POC Glucose 84 (70-105) 03/09/17 06:02 Lactic Acid 1.40 mmol/L (0.7-2.0) 03/04/17 20:41 Calcium 6.6 mg/dL (8.4-10.2) L 03/09/17 04:40 Magnesium 2.60 mg/dL (1.7-2.3) H 03/04/17 16:40 Total Bilirubin 0.80 mg/dL (0.1-1.2) 03/04/17 16:40 AST 32 units/L (5-40) 03/04/17 16:40 ALT 19 units/L (7-56) 03/04/17 16:40 Alkaline Phosphatase 90 units/L (35-129) 03/04/17 16:40 Ammonia 34.0 umol/L (25-60) 03/04/17 17:04 Total Creatine Kinase 420 units/L (55-170) H 03/04/17 16:40 Serum Total Protein 5.7 g/dL (6.1-8.1) L 03/06/17 10:30 Total Protein 6.2 g/dL (6.3-8.2) L 03/04/17 16:40 Albumin 2.3 g/dL (3.8-4.8) L 03/06/17 10:30 Albumin/Globulin Ratio 0.7 % 03/04/17 16:40 Qqhcu-5-Rxszknywk 0.4 g/dL (0.2-0.3) H 03/06/17 10:30 Niiwc-5-Btyufcmzu 0.9 g/dL (0.5-0.9) 03/06/17 10:30 Beta Globulins 0.6 g/dL (0.2-0.5) H 03/06/17 10:30 Gamma Globulins 1.2 g/dL (0.8-1.7) 03/06/17 10:30 Abnorm Protein Band 1 see below 03/06/17 10:30 PEP Interpretation see below H 03/06/17 10:30 TSH 10.230 mlU/mL (0.270-4.200) H 03/04/17 16:40 Free T4 0.89 ng/dL (0.76-1.46) 03/04/17 20:41 Urine Color [place] (Yellow) 03/04/17 15:00 Urine Turbidity Clear (Clear) 03/04/17 15:00 Urine pH 5.0 (5.0-7.0) 03/04/17 15:00 Ur Specific [place] 1.017 (1.003-1.030) 03/04/17 15:00 Urine Protein <15 mg/dl mg/dL (Negative) 03/04/17 15:00 Urine Glucose (UA) Neg mg/dL (Negative) 03/04/17 15:00 Urine Ketones Neg mg/dL (Negative) 03/04/17 15:00 Urine Blood Sm (Negative) 03/04/17 15:00 Urine Nitrite Neg (Negative) 03/04/17 15:00 Urine Bilirubin Neg (Negative) 03/04/17 15:00 Urine Urobilinogen < 2.0 mg/dL (<2.0) 03/04/17 15:00 Ur Leukocyte Esterase Neg (Negative) 03/04/17 15:00 Urine WBC (Auto) < 1.0 /HPF (0.0-6.0) 03/04/17 15:00 Urine RBC (Auto) < 1.0 /HPF (0.0-6.0) 03/04/17 15:00 U Epithel Cells (Auto) < 1.0 /HPF (0-13.0) 03/04/17 15:00 Urine Osmolality 351 Mosm/kg 03/05/17 14:08 Salicylates < 0.3 mg/dL (2.8-20.0) L 03/04/17 16:40 Urine Opiates Screen Presumptive negative 03/04/17 15:00 Urine Methadone Screen Presumptive negative 03/04/17 15:00 Acetaminophen < 15.0 ug/mL (10.0-30.0) 03/04/17 16:40 Ur Barbiturates Screen Presumptive negative 03/04/17 15:00 Ur Phencyclidine Scrn Presumptive negative 03/04/17 15:00 Ur Amphetamines Screen Presumptive negative 03/04/17 15:00 U Benzodiazepines Scrn Presumptive negative 03/04/17 15:00 Urine Cocaine Screen Presumptive negative 03/04/17 15:00 U Marijuana (THC) Screen Presumptive negative 03/04/17 15:00 Drugs of Abuse Note Disclamer 03/04/17 15:00 Plasma/Serum Alcohol < 0.01 gm% (0-0.07) 03/04/17 16:40 [place]FF[place] Screen Negative (Negative) 03/05/17 14:08 Proteinase 3 (PR3) Ab <1.0 AI (<1.0) 03/05/17 14:08 Myeloperoxidase Ab <1.0 AI (<1.0) 03/05/17 14:08 Double Strand DNA Ab <1 IU/mL (<=4) 03/05/17 14:08 Complement C3 65 mg/dL (90-180) L 03/05/17 14:08 Complement C4 34 mg/dL (16-47) 03/05/17 14:08 Hep B Core IgM Ab Non-reactive (NonReactive) 03/05/17 07:08 Hepatitis C Antibody Non-reactive (NonReactive) 03/05/17 07:08
[2017-03-10] MEDS: SYNTHROID PO SCH ×2 (05:28)
[2017-03-10] MEDS: NOVOLOG SUB-Q SCH ×3 (05:29→19:35)
[2017-03-10 07:43] LABS: BUN/Creatinine Ratio 35.41; Calcium 6.6 mg/dL (8.4-10.2); Chloride 107.7 mmol/L (98-107)
[2017-03-10 07:55] LABS: Potassium 2.8 mmol/L (3.6-5.0)
--- NOTE | 2017-03-10 08:08 | Progress Note ---
Assessment and Plan - Patient Problems (1) ARF (acute renal failure) Current Visit: Yes Status: Acute Qualifiers: Acute renal failure type: A Plan to address problem: Likely multifactorial due to vasomotor nephropathy and acute tubular necrosis. Nephrology following. Kidney ultrasound was unremarkable. Still not at baseline continue IV fluids (2) Acute encephalopathy Current Visit: Yes Status: Acute Plan to address problem: Multifactorial could be secondary to uremic syndrome. Discussed with family and they are agree that patient is at baseline. Also reports that the patient was has been bedbound for a few months, but has no reason to be, they state that the patient declined after going to rehab and was not eating as much. The patient seems to have improved and is tolerating diet at this time. 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 Family was feeding him breakfast Hospitalist Physical - Constitutional Vitals: Temp Pulse Resp BP Pulse Ox 97.9 F 66 18 99/56 97 03/10/17 05:00 03/10/17 05:00 03/10/17 05:00 03/10/17 05:00 03/10/17 05:00 General appearance: Present: no acute distress - EENT Eyes: Present: PERRL, EOM intact ENT: hearing intact, clear oral mucosa - Neck Neck: Present: supple, normal ROM - Respiratory Respiratory effort: normal Respiratory: bilateral: rhonchi - Cardiovascular Rhythm: regular Heart Sounds: Present: S1 & S2 - Extremities Extremities: no ischemia, No edema - Abdominal General gastrointestinal: soft, non-tender, non-distended, normal bowel sounds - Psychiatric Psychiatric: appropriate mood/affect, intact judgment & insight - Neurologic Neurologic: CNII-XII intact, moves all extremities Results - Labs CBC & Chem 7: 03/05/17 06:53 03/10/17 05:04 Labs: Laboratory Last Values WBC 9.8 K/mm3 (4.5-11.0) 03/05/17 06:53 RBC 4.53 M/mm3 (3.65-5.03) 03/05/17 06:53 Hgb 12.2 gm/dl (11.8-15.2) 03/05/17 06:53 Hct 39.1 % (35.5-45.6) 03/05/17 06:53 MCV 86 fl (84-94) 03/05/17 06:53 MCH 27 pg (28-32) L 03/05/17 06:53 MCHC 31 % (32-34) L 03/05/17 06:53 RDW 21.1 % (13.2-15.2) H 03/05/17 06:53 Plt Count 95 K/mm3 (140-440) L 03/05/17 06:53 Lymph % (Auto) 15.0 % (13.4-35.0) 03/05/17 06:53 [place] % (Auto) 5.4 % (0.0-7.3) 03/05/17 06:53 Eos % (Auto) 0.0 % (0.0-4.3) 03/05/17 06:53 Baso % (Auto) 0.2 % (0.0-1.8) 03/05/17 06:53 Lymph # 1.5 K/mm3 (1.2-5.4) 03/05/17 06:53 [place] # 0.5 K/mm3 (0.0-0.8) 03/05/17 06:53 Eos # 0.0 K/mm3 (0.0-0.4) 03/05/17 06:53 Baso # 0.0 K/mm3 (0.0-0.1) 03/05/17 06:53 Seg Neutrophils % 79.4 % (40.0-70.0) H 03/05/17 06:53 Seg Neutrophils # 7.8 K/mm3 (1.8-7.7) H 03/05/17 06:53 POC ABG pH 7.449 (7.35-7.45) 03/04/17 16:45 POC ABG pCO2 48.5 (35-45) H 03/04/17 16:45 POC ABG pO2 79 (80-105) L 03/04/17 16:45 POC ABG HCO3 33.7 03/04/17 16:45 POC ABG Total CO2 35 03/04/17 16:45 POC ABG O2 Sat 96 03/04/17 16:45 POC ABG Base Excess 10 03/04/17 16:45 FiO2 21 % 03/04/17 16:45 Sodium 149 mmol/L (137-145) H 03/10/17 05:04 Potassium 2.8 mmol/L (3.6-5.0) L* 03/10/17 05:04 Chloride 107.7 mmol/L (98-107) H 03/10/17 05:04 Carbon Dioxide 25 mmol/L (22-30) 03/10/17 05:04 Anion Gap 19 mmol/L 03/10/17 05:04 BUN 85 mg/dL (9-20) H 03/10/17 05:04 Creatinine 2.4 mg/dL (0.8-1.5) H 03/10/17 05:04 Estimated GFR 32 ml/min 03/10/17 05:04 BUN/Creatinine Ratio 35.41 % 03/10/17 05:04 Glucose 77 mg/dL (75-100) 03/10/17 05:04 POC Glucose 82 (70-105) 03/10/17 05:25 Lactic Acid 1.40 mmol/L (0.7-2.0) 03/04/17 20:41 Calcium 6.6 mg/dL (8.4-10.2) L 03/10/17 05:04 Magnesium 2.60 mg/dL (1.7-2.3) H 03/04/17 16:40 Total Bilirubin 0.80 mg/dL (0.1-1.2) 03/04/17 16:40 AST 32 units/L (5-40) 03/04/17 16:40 ALT 19 units/L (7-56) 03/04/17 16:40 Alkaline Phosphatase 90 units/L (35-129) 03/04/17 16:40 Ammonia 34.0 umol/L (25-60) 03/04/17 17:04 Total Creatine Kinase 420 units/L (55-170) H 03/04/17 16:40 Serum Total Protein 5.7 g/dL (6.1-8.1) L 03/06/17 10:30 Total Protein 6.2 g/dL (6.3-8.2) L 03/04/17 16:40 Albumin 2.3 g/dL (3.8-4.8) L 03/06/17 10:30 Albumin/Globulin Ratio 0.7 % 03/04/17 16:40 Evzqb-6-Ydoyghjvu 0.4 g/dL (0.2-0.3) H 03/06/17 10:30 Zncuh-3-Twafrjjjl 0.9 g/dL (0.5-0.9) 03/06/17 10:30 Beta Globulins 0.6 g/dL (0.2-0.5) H 03/06/17 10:30 Gamma Globulins 1.2 g/dL (0.8-1.7) 03/06/17 10:30 Abnorm Protein Band 1 see below 03/06/17 10:30 PEP Interpretation see below H 03/06/17 10:30 TSH 10.230 mlU/mL (0.270-4.200) H 03/04/17 16:40 Free T4 0.89 ng/dL (0.76-1.46) 03/04/17 20:41 Urine Color [place] (Yellow) 03/04/17 15:00 Urine Turbidity Clear (Clear) 03/04/17 15:00 Urine pH 5.0 (5.0-7.0) 03/04/17 15:00 Ur Specific [place] 1.017 (1.003-1.030) 03/04/17 15:00 Urine Protein <15 mg/dl mg/dL (Negative) 03/04/17 15:00 Urine Glucose (UA) Neg mg/dL (Negative) 03/04/17 15:00 Urine Ketones Neg mg/dL (Negative) 03/04/17 15:00 Urine Blood Sm (Negative) 03/04/17 15:00 Urine Nitrite Neg (Negative) 03/04/17 15:00 Urine Bilirubin Neg (Negative) 03/04/17 15:00 Urine Urobilinogen < 2.0 mg/dL (<2.0) 03/04/17 15:00 Ur Leukocyte Esterase Neg (Negative) 03/04/17 15:00 Urine WBC (Auto) < 1.0 /HPF (0.0-6.0) 03/04/17 15:00 Urine RBC (Auto) < 1.0 /HPF (0.0-6.0) 03/04/17 15:00 U Epithel Cells (Auto) < 1.0 /HPF (0-13.0) 03/04/17 15:00 Urine Osmolality 351 Mosm/kg 03/05/17 14:08 Salicylates < 0.3 mg/dL (2.8-20.0) L 03/04/17 16:40 Urine Opiates Screen Presumptive negative 03/04/17 15:00 Urine Methadone Screen Presumptive negative 03/04/17 15:00 Acetaminophen < 15.0 ug/mL (10.0-30.0) 03/04/17 16:40 Ur Barbiturates Screen Presumptive negative 03/04/17 15:00 Ur Phencyclidine Scrn Presumptive negative 03/04/17 15:00 Ur Amphetamines Screen Presumptive negative 03/04/17 15:00 U Benzodiazepines Scrn Presumptive negative 03/04/17 15:00 Urine Cocaine Screen Presumptive negative 03/04/17 15:00 U Marijuana (THC) Screen Presumptive negative 03/04/17 15:00 Drugs of Abuse Note Disclamer 03/04/17 15:00 Plasma/Serum Alcohol < 0.01 gm% (0-0.07) 03/04/17 16:40 TIFFANY Screen Negative (Negative) 03/05/17 14:08 Proteinase 3 (PR3) Ab <1.0 AI (<1.0) 03/05/17 14:08 Myeloperoxidase Ab <1.0 AI (<1.0) 03/05/17 14:08 Double Strand DNA Ab <1 IU/mL (<=4) 03/05/17 14:08 Complement C3 65 mg/dL (90-180) L 03/05/17 14:08 Complement C4 34 mg/dL (16-47) 03/05/17 14:08 Hep B Core IgM Ab Non-reactive (NonReactive) 03/05/17 07:08 Hepatitis C Antibody Non-reactive (NonReactive) 03/05/17 07:08
--- NOTE | 2017-03-10 08:49 | Progress Note ---
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 Objective - Vital Signs Vital signs: Vital Signs - 12hr 03/09/17 03/09/17 03/10/17 21:47 22:57 01:00 Temperature 98.1 F 97.9 F Pulse Rate 63 Pulse Rate [ 61 64 Right Radial] Respiratory 18 18 Rate Blood Pressure 95/54 91/54 [Right Arm] O2 Sat by Pulse 98 97 Oximetry 03/10/17 05:00 Temperature 97.9 F Pulse Rate Pulse Rate [ 66 Right Radial] Respiratory 18 Rate Blood Pressure 99/56 [Right Arm] O2 Sat by Pulse 97 Oximetry - General Appearance General appearance: well-developed, well-nourished EENT: ATNC Respiratory: Present: Clear to Ascultation Cardiology: regular, S1S2 Gastrointestinal: normal Musculoskeletal: other (no edema) Psychiatric: cooperative - Lab 03/05/17 06:53 03/10/17 05:04 Most recent lab results Calcium 6.6 mg/dL (8.4-10.2) L 03/10/17 05:04 Magnesium 2.60 mg/dL (1.7-2.3) H 03/04/17 16:40
[2017-03-10] MEDS ORDERED: K-DUR PO NR (09:30)
[2017-03-10] MEDS: NACL 0.45% 1000 ML 1,000 ML IV SCH ×2 (10:05→22:40)
[2017-03-10] MEDS: KCL 20MEQ/100ML 20 MEQ/100 ML BAG IV SCH ×2 (17:24→18:44)
[2017-03-11] MEDS: NOVOLOG SUB-Q SCH ×6 (00:20→23:51)
[2017-03-11] MEDS: SYNTHROID PO SCH ×2 (06:35)
[2017-03-11 08:19] LABS: Hematocrit 34.7 % (35.5-45.6); Hemoglobin 10.9 gm/dl (11.8-15.2); Mean Corpuscular HGB Conc 32 % (32-34); Mean Corpuscular Hemoglobin 28 pg (28-32); Mean Corpuscular Volume 88 fl (84-94); Red Blood Count 3.94 M/mm3 (3.65-5.03); White Blood Count 5.6 K/mm3 (4.5-11.0)
--- NOTE | 2017-03-11 08:19 | Progress Note ---
Assessment and Plan - Patient Problems (1) ARF (acute renal failure) Current Visit: Yes Status: Acute Qualifiers: Acute renal failure type: A Plan to address problem: Likely multifactorial due to vasomotor nephropathy and acute tubular necrosis. Nephrology following. Kidney ultrasound was unremarkable. Still not at baseline continue IV fluids (2) Acute encephalopathy Current Visit: Yes Status: Acute Plan to address problem: Multifactorial could be secondary to uremic syndrome. Discussed with family and they are agree that patient is at baseline. Also reports that the patient was has been bedbound for a few months, but has no reason to be, they state that the patient declined after going to rehab and was not eating as much. The patient seems to have improved and is tolerating diet at this time. (3) Hypernatremia Current Visit: Yes Status: Acute Plan to address problem: Continue IV fluids, continue to monitor sodium is mildly improved today is 147. 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 (4) Hypokalemia Current Visit: Yes Status: Acute Plan to address problem: Potassium normal today (5) Elevated LFTs Current Visit: Yes Status: Acute Plan to address problem: Unsure of etiology but will get Liver Ultrasound and Hepatitis screen History Interval history: Patient in bed awake alert and eating breakfast Hospitalist Physical - Constitutional Vitals: Temp Pulse Resp BP Pulse Ox 98.9 F 65 18 110/64 99 03/11/17 05:27 03/11/17 05:27 03/11/17 05:27 03/11/17 05:27 03/11/17 05:27 General appearance: Present: no acute distress - EENT Eyes: Present: PERRL, EOM intact ENT: hearing intact, clear oral mucosa - Neck Neck: Present: supple, normal ROM - Respiratory Respiratory effort: normal Respiratory: bilateral: CTA - Cardiovascular Rhythm: regular Heart Sounds: Present: S1 & S2 - Abdominal General gastrointestinal: soft, non-tender, non-distended, normal bowel sounds - Neurologic Neurologic: CNII-XII intact, moves all extremities Results - Labs CBC & Chem 7: 03/11/17 08:00 03/11/17 08:00 Labs: Laboratory Last Values WBC 9.8 K/mm3 (4.5-11.0) 03/05/17 06:53 RBC 4.53 M/mm3 (3.65-5.03) 03/05/17 06:53 Hgb 12.2 gm/dl (11.8-15.2) 03/05/17 06:53 Hct 39.1 % (35.5-45.6) 03/05/17 06:53 MCV 86 fl (84-94) 03/05/17 06:53 MCH 27 pg (28-32) L 03/05/17 06:53 MCHC 31 % (32-34) L 03/05/17 06:53 RDW 21.1 % (13.2-15.2) H 03/05/17 06:53 Plt Count 95 K/mm3 (140-440) L 03/05/17 06:53 Lymph % (Auto) 15.0 % (13.4-35.0) 03/05/17 06:53 [place] % (Auto) 5.4 % (0.0-7.3) 03/05/17 06:53 Eos % (Auto) 0.0 % (0.0-4.3) 03/05/17 06:53 Baso % (Auto) 0.2 % (0.0-1.8) 03/05/17 06:53 Lymph # 1.5 K/mm3 (1.2-5.4) 03/05/17 06:53 [place] # 0.5 K/mm3 (0.0-0.8) 03/05/17 06:53 Eos # 0.0 K/mm3 (0.0-0.4) 03/05/17 06:53 Baso # 0.0 K/mm3 (0.0-0.1) 03/05/17 06:53 Seg Neutrophils % 79.4 % (40.0-70.0) H 03/05/17 06:53 Seg Neutrophils # 7.8 K/mm3 (1.8-7.7) H 03/05/17 06:53 POC ABG pH 7.449 (7.35-7.45) 03/04/17 16:45 POC ABG pCO2 48.5 (35-45) H 03/04/17 16:45 POC ABG pO2 79 (80-105) L 03/04/17 16:45 POC ABG HCO3 33.7 03/04/17 16:45 POC ABG Total CO2 35 03/04/17 16:45 POC ABG O2 Sat 96 03/04/17 16:45 POC ABG Base Excess 10 03/04/17 16:45 FiO2 21 % 03/04/17 16:45 Sodium 149 mmol/L (137-145) H 03/10/17 05:04 Potassium 2.8 mmol/L (3.6-5.0) L* 03/10/17 05:04 Chloride 107.7 mmol/L (98-107) H 03/10/17 05:04 Carbon Dioxide 25 mmol/L (22-30) 03/10/17 05:04 Anion Gap 19 mmol/L 03/10/17 05:04 BUN 85 mg/dL (9-20) H 03/10/17 05:04 Creatinine 2.4 mg/dL (0.8-1.5) H 03/10/17 05:04 Estimated GFR 32 ml/min 03/10/17 05:04 BUN/Creatinine Ratio 35.41 % 03/10/17 05:04 Glucose 77 mg/dL (75-100) 03/10/17 05:04 POC Glucose 131 (70-105) H 03/11/17 06:33 Lactic Acid 1.40 mmol/L (0.7-2.0) 03/04/17 20:41 Calcium 6.6 mg/dL (8.4-10.2) L 03/10/17 05:04 Magnesium 2.60 mg/dL (1.7-2.3) H 03/04/17 16:40 Total Bilirubin 0.80 mg/dL (0.1-1.2) 03/04/17 16:40 AST 32 units/L (5-40) 03/04/17 16:40 ALT 19 units/L (7-56) 03/04/17 16:40 Alkaline Phosphatase 90 units/L (35-129) 03/04/17 16:40 Ammonia 34.0 umol/L (25-60) 03/04/17 17:04 Total Creatine Kinase 420 units/L (55-170) H 03/04/17 16:40 Serum Total Protein 5.7 g/dL (6.1-8.1) L 03/06/17 10:30 Total Protein 6.2 g/dL (6.3-8.2) L 03/04/17 16:40 Albumin 2.3 g/dL (3.8-4.8) L 03/06/17 10:30 Albumin/Globulin Ratio 0.7 % 03/04/17 16:40 Zmsbq-3-Rgwzhbdbd 0.4 g/dL (0.2-0.3) H 03/06/17 10:30 Dtmqm-1-Klisfjlml 0.9 g/dL (0.5-0.9) 03/06/17 10:30 Beta Globulins 0.6 g/dL (0.2-0.5) H 03/06/17 10:30 Gamma Globulins 1.2 g/dL (0.8-1.7) 03/06/17 10:30 Abnorm Protein Band 1 see below 03/06/17 10:30 PEP Interpretation see below H 03/06/17 10:30 TSH 10.230 mlU/mL (0.270-4.200) H 03/04/17 16:40 Free T4 0.89 ng/dL (0.76-1.46) 03/04/17 20:41 Urine Color Francheska (Yellow) 03/04/17 15:00 Urine Turbidity Clear (Clear) 03/04/17 15:00 Urine pH 5.0 (5.0-7.0) 03/04/17 15:00 Ur Specific [place] 1.017 (1.003-1.030) 03/04/17 15:00 Urine Protein <15 mg/dl mg/dL (Negative) 03/04/17 15:00 Urine Glucose (UA) Neg mg/dL (Negative) 03/04/17 15:00 Urine Ketones Neg mg/dL (Negative) 03/04/17 15:00 Urine Blood Sm (Negative) 03/04/17 15:00 Urine Nitrite Neg (Negative) 03/04/17 15:00 Urine Bilirubin Neg (Negative) 03/04/17 15:00 Urine Urobilinogen < 2.0 mg/dL (<2.0) 03/04/17 15:00 Ur Leukocyte Esterase Neg (Negative) 03/04/17 15:00 Urine WBC (Auto) < 1.0 /HPF (0.0-6.0) 03/04/17 15:00 Urine RBC (Auto) < 1.0 /HPF (0.0-6.0) 03/04/17 15:00 U Epithel Cells (Auto) < 1.0 /HPF (0-13.0) 03/04/17 15:00 Urine Osmolality 351 Mosm/kg 03/05/17 14:08 Salicylates < 0.3 mg/dL (2.8-20.0) L 03/04/17 16:40 Urine Opiates Screen Presumptive negative 03/04/17 15:00 Urine Methadone Screen Presumptive negative 03/04/17 15:00 Acetaminophen < 15.0 ug/mL (10.0-30.0) 03/04/17 16:40 Ur Barbiturates Screen Presumptive negative 03/04/17 15:00 Ur Phencyclidine Scrn Presumptive negative 03/04/17 15:00 Ur Amphetamines Screen Presumptive negative 03/04/17 15:00 U Benzodiazepines Scrn Presumptive negative 03/04/17 15:00 Urine Cocaine Screen Presumptive negative 03/04/17 15:00 U Marijuana (THC) Screen Presumptive negative 03/04/17 15:00 Drugs of Abuse Note Disclamer 03/04/17 15:00 Plasma/Serum Alcohol < 0.01 gm% (0-0.07) 03/04/17 16:40 TIFFANY Screen Negative (Negative) 03/05/17 14:08 Proteinase 3 (PR3) Ab <1.0 AI (<1.0) 03/05/17 14:08 Myeloperoxidase Ab <1.0 AI (<1.0) 03/05/17 14:08 Double Strand DNA Ab <1 IU/mL (<=4) 03/05/17 14:08 Complement C3 65 mg/dL (90-180) L 03/05/17 14:08 Complement C4 34 mg/dL (16-47) 03/05/17 14:08 Hep B Core IgM Ab Non-reactive (NonReactive) 03/05/17 07:08 Hepatitis C Antibody Non-reactive (NonReactive) 03/05/17 07:08
[2017-03-11 08:22] LABS: Platelet Count 49 K/mm3 (140-440)
[2017-03-11 10:09] LABS: Albumin/Globulin Ratio 0.7 %; BUN/Creatinine Ratio 30.41; Bilirubin,Total 0.4 mg/dL (0.1-1.2); Calcium 6.7 mg/dL (8.4-10.2); Chloride 108.4 mmol/L (98-107); Total Protein 4.9 g/dL (6.3-8.2)
[2017-03-11 10:18] LABS: Potassium 3.9 mmol/L (3.6-5.0)
[2017-03-11 10:34] LABS: Basophils % (Manual) 0 % (0.0-1.8); Blastocytes % (Manual) 0 %; Eosinophils % (Manual) 0 % (0.0-4.3)
[2017-03-11 10:35] LABS: Acanthocytes 1+; Anisocytosis 1+; Burr Cells 1+; Diff Status Complete; Platelet Estimate Appe; Poikilocytosis 2+
--- NOTE | 2017-03-11 14:10 | Progress Note ---
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 * History of gross hematuria * Type II DM Recommendations * Continue IVF for volume repletion * Replete Kprn, follow up mag levels * Abx per primary team * Avoid nephrotoxins * Strict intake and output * Monitor patient's renal function and electrolytes closely * ok to dc home in am if labs stable from renal standpoint Subjective Date of service: 03/11/17 Principal diagnosis: mark Interval history: resting in bed, no acute events Objective - Exam Narrative Exam: General appearance: well-developed, well-nourished EENT: ATNC Respiratory: Present: Clear to Ascultation Cardiology: regular, S1S2 Gastrointestinal: normal Musculoskeletal: other (no edema) Psychiatric: cooperative - Vital Signs Vital signs: Vital Signs - 12hr 03/11/17 03/11/17 03/11/17 04:00 05:27 08:54 Temperature 98.9 F 97.9 F Pulse Rate 60 Pulse Rate [ 65 Apical] Pulse Rate [ 62 Right Radial] Respiratory 18 16 Rate Blood Pressure 110/64 123/73 [Right Arm] O2 Sat by Pulse 99 100 Oximetry - Lab 03/11/17 08:00 03/11/17 08:00 Most recent lab results Calcium 6.7 mg/dL (8.4-10.2) L 03/11/17 08:00 Magnesium 2.60 mg/dL (1.7-2.3) H 03/04/17 16:40
[2017-03-12] MEDS: NACL 0.45% IV SCH ×2 (00:54→12:01)
[2017-03-12] MEDS: KCL IV SCH ×2 (00:54→12:01)
[2017-03-12] MEDS: D50W (25GM) IV PRN ×2 (00:54→12:20)
[2017-03-12 07:46] LABS: Hemoglobin 11.5 gm/dl (11.8-15.2); Mean Corpuscular HGB Conc 32 % (32-34); Mean Corpuscular Hemoglobin 28 pg (28-32); Mean Corpuscular Volume 86 fl (84-94); Red Blood Count 4.17 M/mm3 (3.65-5.03); White Blood Count 4.1 K/mm3 (4.5-11.0)
[2017-03-12 07:54] LABS: Albumin/Globulin Ratio 0.7 %; Bilirubin,Total 0.5 mg/dL (0.1-1.2); Calcium 6.7 mg/dL (8.4-10.2); Chloride 109.8 mmol/L (98-107); Potassium 3.8 mmol/L (3.6-5.0); Total Protein 4.9 g/dL (6.3-8.2)
[2017-03-12 08:00] LABS: Red Cell Distribution Width 22.6 % (13.2-15.2)
--- NOTE | 2017-03-12 10:10 | Ultrasound Report ---
Abdominal sonogram: History: Elevated LFTs. Findings: Liver is not completely visualized due to patient body habitus. Visualized portion of liver appears unremarkable. No intrahepatic duct dilatation. Common bile duct diameter 5.1 mm. Gallbladder wall thickness is variable. There is focal echogenic masses identified attached to the wall projecting into the lumen probably suggestive of multiple polyps or carcinoma. The largest measures 1.7 x 0.9 cm. Sludge identified within the gallbladder. No pericholecystic fluid. The right kidney 12.4 x 4.9 x 4.8 cm. Cortical thickness 1.3 cm. Left kidney 11.4 x 5.9 x 5.2 cm. Cortical thickness is 1.4 cm. Spleen measures 7.6 cm. Pancreas obscured by bowel gas. Impression: Findings as detailed above. Further evaluation of gallbladder with CT scan or MRI scan recommended.
[2017-03-12] MEDS: SYNTHROID PO SCH ×2 (10:12)
--- NOTE | 2017-03-12 10:47 | Progress Note ---
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 * History of gross hematuria * Type II DM Recommendations * Continue IVF for volume repletion * cr is better today * Replete Kprn, follow up mag levels * Abx per primary team * Avoid nephrotoxins * Strict intake and output * Monitor patient's renal function and electrolytes closely * ok to dc home from renal standpoint Subjective Date of service: 03/12/17 Principal diagnosis: mark Interval history: resting in bed, no acute events Objective - Exam Narrative Exam: General appearance: well-developed, well-nourished EENT: ATNC Respiratory: Present: Clear to Ascultation Cardiology: regular, S1S2 Gastrointestinal: normal Musculoskeletal: other (no edema) Psychiatric: cooperative - Vital Signs Vital signs: Vital Signs - 12hr 03/11/17 03/12/17 03/12/17 23:02 01:01 03:01 Temperature 97.6 F Pulse Rate 61 Pulse Rate [ 74 Apical] Pulse Rate [ 60 Left Radial] Pulse Rate [ 60 Right Radial] Respiratory 20 18 Rate Blood Pressure 100/68 [Right Arm] O2 Sat by Pulse 100 Oximetry 03/12/17 04:45 Temperature 98.2 F Pulse Rate Pulse Rate [ 65 Apical] Pulse Rate [ Left Radial] Pulse Rate [ Right Radial] Respiratory 20 Rate Blood Pressure 124/65 [Right Arm] O2 Sat by Pulse 11 L Oximetry - Lab 03/12/17 07:08 03/12/17 07:08 Most recent lab results Calcium 6.7 mg/dL (8.4-10.2) L 03/12/17 07:08 Magnesium 2.60 mg/dL (1.7-2.3) H 03/04/17 16:40
[2017-03-12 14:01] LABS: Anisocytosis 1+; Basophils % (Manual) 0 % (0.0-1.8); Blastocytes % (Manual) 0 %; Eosinophils % (Manual) 0 % (0.0-4.3)
[2017-03-12 14:02] LABS: Burr Cells 2+; Diff Status Complete; Giant Platelets Rare; Large Platelets Few; Platelet Estimate Cons; Poikilocytosis 2+
[2017-03-12] MEDS: NOVOLOG SUB-Q SCH ×2 (14:23→18:25)
[2017-03-12 14:46] LABS: Platelet Count 60 K/mm3 (140-440)
--- NOTE | 2017-03-12 15:20 | Progress Note ---
Assessment and Plan Assessment and plan: --Acute renal failure probably secondary to vasomotor nephropathy and ATN Avoid nephrotoxic medications , nephrology following --Acute metabolic encephalopathy; Multifactorial, mild improvement since admission, continue supportive care Frequent neuro checks --Hypernatremia Continue IV fluids closely monitor monitor electrolytes and adjust as needed --Hypoglycemia Secondary to poor oral intake,change IV fluids to D5w, residual malnutrition, consider tube feeding if no improvement --Transaminitis; worsening renal function Ultrasound revealed gallbladder wall thickening and gallbladder wall polyps versus carcinoma We'll consult GI for assistance with management -- hypothyroidism continue Synthroid --DVT prophylaxis with Lovenox Physical closely monitor the patient and adjust management as needed Plan of care discussed with the patient consults and recommendations noted and appreciated,; History Interval history: Patient seen and evaluated in his room this morning medical records reviewed Patient is slightly confused, but responds to very simple questions Had an episode of hypoglycemia, received D50 Alert and awake responding to simple questions Vital signs reviewed stable Hospitalist Physical - Constitutional Vitals: Temp Pulse Resp BP Pulse Ox 97.8 F 54 L 16 124/76 100 03/12/17 09:00 03/12/17 09:00 03/12/17 09:00 03/12/17 09:00 03/12/17 09:00 General appearance: Present: no acute distress, well-nourished - EENT Eyes: Present: PERRL, EOM intact - Neck Neck: Present: supple, normal ROM - Respiratory Respiratory effort: normal Respiratory: bilateral: diminished, negative: rales, rhonchi, wheezing - Cardiovascular Rhythm: regular Heart Sounds: Present: S1 & S2 - Extremities Extremities: no ischemia, pulses intact, pulses symmetrical Peripheral Pulses: within normal limits - Abdominal General gastrointestinal: soft, non-tender, non-distended, normal bowel sounds - Integumentary Integumentary: Present: clear, warm - Psychiatric Psychiatric: appropriate mood/affect, other - Neurologic Neurologic: CNII-XII intact, moves all extremities Results - Labs CBC & Chem 7: 03/12/17 07:08 03/12/17 07:08 Labs: Laboratory Last Values WBC 4.1 K/mm3 (4.5-11.0) L 03/12/17 07:08 RBC 4.17 M/mm3 (3.65-5.03) 03/12/17 07:08 Hgb 11.5 gm/dl (11.8-15.2) L 03/12/17 07:08 Hct 36.0 % (35.5-45.6) 03/12/17 07:08 MCV 86 fl (84-94) 03/12/17 07:08 MCH 28 pg (28-32) 03/12/17 07:08 MCHC 32 % (32-34) 03/12/17 07:08 RDW 22.6 % (13.2-15.2) H 03/12/17 07:08 Plt Count 60 K/mm3 (140-440) L 03/12/17 07:08 Lymph % (Auto) 15.0 % (13.4-35.0) 03/05/17 06:53 [place] % (Auto) 5.4 % (0.0-7.3) 03/05/17 06:53 Eos % (Auto) 0.0 % (0.0-4.3) 03/05/17 06:53 Baso % (Auto) 0.2 % (0.0-1.8) 03/05/17 06:53 Lymph # 1.5 K/mm3 (1.2-5.4) 03/05/17 06:53 [place] # 0.5 K/mm3 (0.0-0.8) 03/05/17 06:53 Eos # 0.0 K/mm3 (0.0-0.4) 03/05/17 06:53 Baso # 0.0 K/mm3 (0.0-0.1) 03/05/17 06:53 Add Manual Diff Complete 03/12/17 07:08 Total Counted 100 03/12/17 07:08 Seg Neutrophils % 79.4 % (40.0-70.0) H 03/05/17 06:53 Seg Neuts % (Manual) 56.0 % (40.0-70.0) 03/12/17 07:08 Band Neutrophils % 0 % 03/12/17 07:08 Lymphocytes % (Manual) 36.0 % (13.4-35.0) H 03/12/17 07:08 Reactive Lymphs % (Man) 2.0 % 03/12/17 07:08 Monocytes % (Manual) 6.0 % (0.0-7.3) 03/12/17 07:08 Eosinophils % (Manual) 0 % (0.0-4.3) 03/12/17 07:08 Basophils % (Manual) 0 % (0.0-1.8) 03/12/17 07:08 Metamyelocytes % 0 % 03/12/17 07:08 Myelocytes % 0 % 03/12/17 07:08 Promyelocytes % 0 % 03/12/17 07:08 Blast Cells % 0 % 03/12/17 07:08 Nucleated RBC % 1.0 % (0.0-0.9) H 03/12/17 07:08 Seg Neutrophils # 7.8 K/mm3 (1.8-7.7) H 03/05/17 06:53 Seg Neutrophils # Man 2.3 K/mm3 (1.8-7.7) 03/12/17 07:08 Band Neutrophils # 0.0 K/mm3 03/12/17 07:08 Lymphocytes # (Manual) 1.5 K/mm3 (1.2-5.4) 03/12/17 07:08 Abs React Lymphs (Man) 0.1 K/mm3 03/12/17 07:08 Monocytes # (Manual) 0.2 K/mm3 (0.0-0.8) 03/12/17 07:08 Eosinophils # (Manual) 0.0 K/mm3 (0.0-0.4) 03/12/17 07:08 Basophils # (Manual) 0.0 K/mm3 (0.0-0.1) 03/12/17 07:08 Metamyelocytes # 0.0 K/mm3 03/12/17 07:08 Myelocytes # 0.0 K/mm3 03/12/17 07:08 Promyelocytes # 0.0 K/mm3 03/12/17 07:08 Blast Cells # 0.0 K/mm3 03/12/17 07:08 WBC Morphology Not Reportable 03/12/17 07:08 Hypersegmented Neuts Not Reportable 03/12/17 07:08 Hyposegmented Neuts Not Reportable 03/12/17 07:08 Hypogranular Neuts Not Reportable 03/12/17 07:08 Smudge Cells Not Reportable 03/12/17 07:08 Toxic Granulation Not Reportable 03/12/17 07:08 Toxic Vacuolation Not Reportable 03/12/17 07:08 Dohle Bodies Not Reportable 03/12/17 07:08 Pelger-Huet Anomaly Not Reportable 03/12/17 07:08 [place] Rods Not Reportable 03/12/17 07:08 Platelet Estimate Cons 03/12/17 07:08 Clumped Platelets Not Reportable 03/12/17 07:08 Plt Clumps, EDTA Not Reportable 03/12/17 07:08 Large Platelets Few 03/12/17 07:08 Giant Platelets Rare 03/12/17 07:08 Platelet Satelliting Not Reportable 03/12/17 07:08 Plt Morphology Comment Not Reportable 03/12/17 07:08 RBC Morphology Not Reportable 03/12/17 07:08 Dimorphic RBCs Not Reportable 03/12/17 07:08 Polychromasia Not Reportable 03/12/17 07:08 Hypochromasia Not Reportable 03/12/17 07:08 Poikilocytosis 2+ 03/12/17 07:08 Anisocytosis 1+ 03/12/17 07:08 Microcytosis Not Reportable 03/12/17 07:08 Macrocytosis Not Reportable 03/12/17 07:08 Spherocytes Not Reportable 03/12/17 07:08 Pappenheimer Bodies Not Reportable 03/12/17 07:08 Sickle Cells Not Reportable 03/12/17 07:08 Target Cells Not Reportable 03/12/17 07:08 Tear Drop Cells Not Reportable 03/12/17 07:08 Ovalocytes Not Reportable 03/12/17 07:08 Helmet Cells Not Reportable 03/12/17 07:08 [place] Bodies Not Reportable 03/12/17 07:08 [place] Rings Not Reportable 03/12/17 07:08 [place] Cells 2+ 03/12/17 07:08 Bite Cells Not Reportable 03/12/17 07:08 Crenated Cell Not Reportable 03/12/17 07:08 Elliptocytes Not Reportable 03/12/17 07:08 Acanthocytes (Spur) Not Reportable 03/12/17 07:08 Rouleaux Not Reportable 03/12/17 07:08 Hemoglobin C Crystals Not Reportable 03/12/17 07:08 Schistocytes Not Reportable 03/12/17 07:08 Malaria parasites Not Reportable 03/12/17 07:08 [place] Bodies Not Reportable 03/12/17 07:08 Hem Pathologist Commnt No 03/12/17 07:08 POC ABG pH 7.449 (7.35-7.45) 03/04/17 16:45 POC ABG pCO2 48.5 (35-45) H 03/04/17 16:45 POC ABG pO2 79 (80-105) L 03/04/17 16:45 POC ABG HCO3 33.7 03/04/17 16:45 POC ABG Total CO2 35 03/04/17 16:45 POC ABG O2 Sat 96 03/04/17 16:45 POC ABG Base Excess 10 03/04/17 16:45 FiO2 21 % 03/04/17 16:45 Sodium 148 mmol/L (137-145) H 03/12/17 07:08 Potassium 3.8 mmol/L (3.6-5.0) 03/12/17 07:08 Chloride 109.8 mmol/L (98-107) H 03/12/17 07:08 Carbon Dioxide 23 mmol/L (22-30) 03/12/17 07:08 Anion Gap 19 mmol/L 03/12/17 07:08 BUN 64 mg/dL (9-20) H 03/12/17 07:08 Creatinine 2.0 mg/dL (0.8-1.5) H 03/12/17 07:08 Estimated GFR 39 ml/min 03/12/17 07:08 BUN/Creatinine Ratio 32.00 % 03/12/17 07:08 Glucose 91 mg/dL (75-100) 03/12/17 07:08 POC Glucose 69 (70-105) L 03/12/17 12:05 Lactic Acid 1.40 mmol/L (0.7-2.0) 03/04/17 20:41 Calcium 6.7 mg/dL (8.4-10.2) L 03/12/17 07:08 Magnesium 2.60 mg/dL (1.7-2.3) H 03/04/17 16:40 Total Bilirubin 0.50 mg/dL (0.1-1.2) 03/12/17 07:08 AST 123 units/L (5-40) H 03/12/17 07:08 ALT 121 units/L (7-56) H 03/12/17 07:08 Alkaline Phosphatase 489 units/L (35-129) H 03/12/17 07:08 Ammonia 34.0 umol/L (25-60) 03/04/17 17:04 Total Creatine Kinase 420 units/L (55-170) H 03/04/17 16:40 Serum Total Protein 5.7 g/dL (6.1-8.1) L 03/06/17 10:30 Total Protein 4.9 g/dL (6.3-8.2) L 03/12/17 07:08 Albumin 2.0 g/dL (3.9-5) L 03/12/17 07:08 Albumin/Globulin Ratio 0.7 % 03/12/17 07:08 Qmpmk-9-Ngmynwkog 0.4 g/dL (0.2-0.3) H 03/06/17 10:30 Bvivl-2-Znhwncxpp 0.9 g/dL (0.5-0.9) 03/06/17 10:30 Beta Globulins 0.6 g/dL (0.2-0.5) H 03/06/17 10:30 Gamma Globulins 1.2 g/dL (0.8-1.7) 03/06/17 10:30 Abnorm Protein Band 1 see below 03/06/17 10:30 PEP Interpretation see below H 03/06/17 10:30 TSH 10.230 mlU/mL (0.270-4.200) H 03/04/17 16:40 Free T4 0.89 ng/dL (0.76-1.46) 03/04/17 20:41 Urine Color [place] (Yellow) 03/04/17 15:00 Urine Turbidity Clear (Clear) 03/04/17 15:00 Urine pH 5.0 (5.0-7.0) 03/04/17 15:00 Ur Specific [place] 1.017 (1.003-1.030) 03/04/17 15:00 Urine Protein <15 mg/dl mg/dL (Negative) 03/04/17 15:00 Urine Glucose (UA) Neg mg/dL (Negative) 03/04/17 15:00 Urine Ketones Neg mg/dL (Negative) 03/04/17 15:00 Urine Blood Sm (Negative) 03/04/17 15:00 Urine Nitrite Neg (Negative) 03/04/17 15:00 Urine Bilirubin Neg (Negative) 03/04/17 15:00 Urine Urobilinogen < 2.0 mg/dL (<2.0) 03/04/17 15:00 Ur Leukocyte Esterase Neg (Negative) 03/04/17 15:00 Urine WBC (Auto) < 1.0 /HPF (0.0-6.0) 03/04/17 15:00 Urine RBC (Auto) < 1.0 /HPF (0.0-6.0) 03/04/17 15:00 U Epithel Cells (Auto) < 1.0 /HPF (0-13.0) 03/04/17 15:00 Urine Osmolality 351 Mosm/kg 03/05/17 14:08 Salicylates < 0.3 mg/dL (2.8-20.0) L 03/04/17 16:40 Urine Opiates Screen Presumptive negative 03/04/17 15:00 Urine Methadone Screen Presumptive negative 03/04/17 15:00 Acetaminophen < 15.0 ug/mL (10.0-30.0) 03/04/17 16:40 Ur Barbiturates Screen Presumptive negative 03/04/17 15:00 Ur Phencyclidine Scrn Presumptive negative 03/04/17 15:00 Ur Amphetamines Screen Presumptive negative 03/04/17 15:00 U Benzodiazepines Scrn Presumptive negative 03/04/17 15:00 Urine Cocaine Screen Presumptive negative 03/04/17 15:00 U Marijuana (THC) Screen Presumptive negative 03/04/17 15:00 Drugs of Abuse Note Disclamer 03/04/17 15:00 Plasma/Serum Alcohol < 0.01 gm% (0-0.07) 03/04/17 16:40 TIFFANY Screen Negative (Negative) 03/05/17 14:08 Proteinase 3 (PR3) Ab <1.0 AI (<1.0) 03/05/17 14:08 Myeloperoxidase Ab <1.0 AI (<1.0) 03/05/17 14:08 Double Strand DNA Ab <1 IU/mL (<=4) 03/05/17 14:08 Complement C3 65 mg/dL (90-180) L 03/05/17 14:08 Complement C4 34 mg/dL (16-47) 03/05/17 14:08 Hep B Core IgM Ab Non-reactive (NonReactive) 03/05/17 07:08 Hepatitis C Antibody Non-reactive (NonReactive) 03/05/17 07:08
[2017-03-12] MEDS: KCL 10 MEQ in D5W 1,000 ML IV SCH (16:17)
--- NOTE | 2017-03-12 16:28 | Gastroenterology Consultation ---
History of Present Illness - Reason for Consult Consult date: 03/12/17 elevated liver enzymes Requesting physician: KOBE ORTIZ - History of Present Illness Mr Dooley is a 81 yo aam who presented with AMS, hypotension, and ARF. History is primarily gathered from chart review and pt's nurse. His mental status since admission reportedly waxes and wanes (yesterday able to eat and more alert compared to today). Liver enzymes on admission were normal (on 03/04) . Repeat levels done yesterday and today showed new onset elevation in AST/ALT/ alk phos. No reported/known h/o liver disease. Past History Past Medical History: CAD, diabetes, hypertension Past Surgical History: CABG Social history: single, lives with family. denies: smoking, alcohol abuse, prescription drug abuse Family history: diabetes, hypertension Medications and Allergies Allergies Allergy/AdvReac Type Severity Reaction Status Date / Time No Known Allergies Allergy Verified 11/07/16 21:44 Home Medications Medication Instructions Recorded Confirmed Last Taken Type Unobtainable 03/04/17 03/04/17 Unknown History Active Meds: Active Medications Acetaminophen (Tylenol) 650 mg PO Q4H PRN PRN Reason: Pain MILD(1-3)/Fever >100.5/HUI Albuterol (Proventil) 2.5 mg IH Q4H PRN PRN Reason: Shortness Of Breath Bisacodyl (Dulcolax) 10 mg DC QDAY PRN PRN Reason: Constipation unrelieved by MOM Dextrose (D50w (25gm)) 50 ml IV PRN PRN PRN Reason: Hypoglycemia Last Admin: 03/12/17 12:20 Dose: 50 ml Enoxaparin Sodium (Lovenox) 30 mg SUB-Q QDAY [facility] Potassium Chloride 10 meq/ (Dextrose) 1,005 mls @ 100 mls/hr IV DIRECT TYRONE Last Admin: 03/12/17 16:17 Dose: 100 mls/hr Insulin Aspart (Novolog) 0 units SUB-Q Q6HR [facility] PRN Reason: Protocol Last Admin: 03/12/17 14:23 Dose: Not Given Levothyroxine Sodium (Synthroid) 112 mcg PO DAILY@0600 [facility] Last Admin: 03/12/17 10:12 Dose: 112 mcg Levothyroxine Sodium (Synthroid) 25 mcg PO DAILY@0600 [facility] Last Admin: 03/12/17 10:12 Dose: 25 mcg Ondansetron HCl (Zofran) 4 mg IV Q8H PRN PRN Reason: N/V unrelieved by Reglan Review of Systems - Review of Systems ROS unobtainable: due to mental status Exam - Exam Narrative Exam: Gen: NAD, not answering questions Head: nc/at Mouth: no oral lesions Neck: no LAD, supple Eyes: perrl, anicteric CV: RRR, no murmurs Lungs: CTAB, non labored Abd: soft, nd, +bs Ext: no c/c/e Neuro: oriented x 0 - Constitutional Vital Signs: Temp Pulse Resp BP Pulse Ox 98.0 F 58 L 16 126/80 100 03/12/17 14:38 03/12/17 14:38 03/12/17 14:38 03/12/17 14:38 03/12/17 14:38 - Labs CBC & Chem 7: 03/12/17 07:08 03/12/17 07:08 Lab Results: Laboratory Results - last 24 hr 03/11/17 03/11/17 03/12/17 18:24 23:37 07:07 WBC RBC Hgb Hct MCV MCH MCHC RDW Plt Count Add Manual Diff Total Counted Seg Neuts % (Manual) Band Neutrophils % Lymphocytes % (Manual) Reactive Lymphs % (Man) Monocytes % (Manual) Eosinophils % (Manual) Basophils % (Manual) Metamyelocytes % Myelocytes % Promyelocytes % Blast Cells % Nucleated RBC % Seg Neutrophils # Man Band Neutrophils # Lymphocytes # (Manual) Abs React Lymphs (Man) Monocytes # (Manual) Eosinophils # (Manual) Basophils # (Manual) Metamyelocytes # Myelocytes # Promyelocytes # Blast Cells # WBC Morphology Hypersegmented Neuts Hyposegmented Neuts Hypogranular Neuts Smudge Cells Toxic Granulation Toxic Vacuolation Dohle Bodies Pelger-Huet Anomaly Benedicto Rods Platelet Estimate Clumped Platelets Plt Clumps, EDTA Large Platelets Giant Platelets Platelet Satelliting Plt Morphology Comment RBC Morphology Dimorphic RBCs Polychromasia Hypochromasia Poikilocytosis Anisocytosis Microcytosis Macrocytosis Spherocytes Pappenheimer Bodies Sickle Cells Target Cells Tear Drop Cells Ovalocytes Helmet Cells [place] Bodies [place] Rings Buster Cells Bite Cells Crenated Cell Elliptocytes Acanthocytes (Spur) Rouleaux Hemoglobin C Crystals Schistocytes Malaria parasites Pierre Bodies Hem Pathologist Commnt Sodium Potassium Chloride Carbon Dioxide Anion Gap BUN Creatinine Estimated GFR BUN/Creatinine Ratio Glucose POC Glucose 186 H 80 71 Calcium Total Bilirubin AST ALT Alkaline Phosphatase Total Protein Albumin Albumin/Globulin Ratio 03/12/17 03/12/17 03/12/17 07:08 07:08 12:05 WBC 4.1 L RBC 4.17 Hgb 11.5 L Hct 36.0 MCV 86 MCH 28 MCHC 32 RDW 22.6 H Plt Count 60 L Add Manual Diff Complete Total Counted 100 Seg Neuts % (Manual) 56.0 Band Neutrophils % 0 Lymphocytes % (Manual) 36.0 H Reactive Lymphs % (Man) 2.0 Monocytes % (Manual) 6.0 Eosinophils % (Manual) 0 Basophils % (Manual) 0 Metamyelocytes % 0 Myelocytes % 0 Promyelocytes % 0 Blast Cells % 0 Nucleated RBC % 1.0 H Seg Neutrophils # Man 2.3 Band Neutrophils # 0.0 Lymphocytes # (Manual) 1.5 Abs React Lymphs (Man) 0.1 Monocytes # (Manual) 0.2 Eosinophils # (Manual) 0.0 Basophils # (Manual) 0.0 Metamyelocytes # 0.0 Myelocytes # 0.0 Promyelocytes # 0.0 Blast Cells # 0.0 WBC Morphology Not Reportable Hypersegmented Neuts Not Reportable Hyposegmented Neuts Not Reportable Hypogranular Neuts Not Reportable Smudge Cells Not Reportable Toxic Granulation Not Reportable Toxic Vacuolation Not Reportable Dohle Bodies Not Reportable Pelger-Huet Anomaly Not Reportable Benedicto Rods Not Reportable Platelet Estimate Cons Clumped Platelets Not Reportable Plt Clumps, EDTA Not Reportable Large Platelets Few Giant Platelets Rare Platelet Satelliting Not Reportable Plt Morphology Comment Not Reportable RBC Morphology Not Reportable Dimorphic RBCs Not Reportable Polychromasia Not Reportable Hypochromasia Not Reportable Poikilocytosis 2+ Anisocytosis 1+ Microcytosis Not Reportable Macrocytosis Not Reportable Spherocytes Not Reportable Pappenheimer Bodies Not Reportable Sickle Cells Not Reportable Target Cells Not Reportable Tear Drop Cells Not Reportable Ovalocytes Not Reportable Helmet Cells Not Reportable [place]las-[place] Bodies Not Reportable [place] Rings Not Reportable Buster Cells 2+ Bite Cells Not Reportable Crenated Cell Not Reportable Elliptocytes Not Reportable Acanthocytes (Spur) Not Reportable Rouleaux Not Reportable Hemoglobin C Crystals Not Reportable Schistocytes Not Reportable Malaria parasites Not Reportable Pierre Bodies Not Reportable Hem Pathologist Commnt No Sodium 148 H Potassium 3.8 Chloride 109.8 H Carbon Dioxide 23 Anion Gap 19 BUN 64 H Creatinine 2.0 H Estimated GFR 39 BUN/Creatinine Ratio 32.00 Glucose 91 POC Glucose 69 L Calcium 6.7 L Total Bilirubin 0.50 AST 123 H ALT 121 H Alkaline Phosphatase 489 H Total Protein 4.9 L Albumin 2.0 L Albumin/Globulin Ratio 0.7 Assessment and Plan Abnormal LFT's - pt with mixed pattern of liver enzyme elevation (alk phos + ast /alt) with normal bilirubin. This appears to be a new elevation occurring during hospitalization as liver enzymes were normal on admission. Unknown trend during a one week period as labs were rechecked yesterday. Viral hepatitis serologies have been ordered (hep bc Igm negative, hep c negative). US findings reviewed showing multiple GB polyps (largest > 1 cm) vs carcinoma. Ddx includes drug/medication induced hepatotoxicity (medications reviewed and seems less likely given active meds, although was on abx initially), infiltrative disorder (?malignancy), ischemic hepatitis (hypotension on admission). -trend liver enzymes daily -obtain MRI/MRCP without contrast (due to renal function) to further evaluate GB abnormalities and to r/o biliary obstruction -consider surgery consult given GB polyp size (> 1 cm, and unable to r/o malignancy)
[2017-03-13] MEDS: KCL 10 MEQ in D5W 1,000 ML IV SCH (05:02)
[2017-03-13] MEDS: SYNTHROID PO SCH ×2 (05:06)
[2017-03-13] MEDS: NOVOLOG SUB-Q SCH (05:08)
[2017-03-13 05:53] LABS: Basophils % (Auto) 0.1 % (0.0-1.8); Eosinophils % (Auto) 0.4 % (0.0-4.3); Hemoglobin 11.2 gm/dl (11.8-15.2); Mean Corpuscular HGB Conc 32 % (32-34); Mean Corpuscular Hemoglobin 27 pg (28-32); Mean Corpuscular Volume 85 fl (84-94); Red Blood Count 4.13 M/mm3 (3.65-5.03); White Blood Count 3.6 K/mm3 (4.5-11.0)
[2017-03-13 05:59] LABS: Albumin 1.8 g/dL (3.9-5); Albumin/Globulin Ratio 0.5 %; BUN/Creatinine Ratio 32.94; Bilirubin,Total 0.5 mg/dL (0.1-1.2); Calcium 7.2 mg/dL (8.4-10.2); Chloride 107.1 mmol/L (98-107); Potassium 3.5 mmol/L (3.6-5.0); Total Protein 5.3 g/dL (6.3-8.2)
[2017-03-13 06:00] LABS: Red Cell Distribution Width 22.3 % (13.2-15.2)
[2017-03-13 06:01] LABS: Platelet Count 47 K/mm3 (140-440)
--- NOTE | 2017-03-13 09:18 | Progress Note ---
Assessment and Plan Assessment and plan: --Acute renal failure probably secondary to vasomotor nephropathy and ATN Avoid nephrotoxic medications , nephrology following --Hypokalemia. Will supplement --Acute metabolic encephalopathy; Multifactorial, mild improvement since admission, continue supportive care Frequent neuro checks --Hypernatremia Continue IV fluids closely monitor monitor electrolytes and adjust as needed --Hypoglycemia Secondary to poor oral intake,change IV fluids to D5w, residual malnutrition, consider tube feeding if no improvement --Transaminitis; worsening renal function Ultrasound revealed gallbladder wall thickening and gallbladder wall polyps versus carcinoma We'll consult GI for assistance with management --Gram Negative staph Bacteremia. positive in one of two bottles. Likely a contaminantNo fever or Leukocytosis. will follow culture result. -- hypothyroidism continue Synthroid --DVT prophylaxis with Lovenox Subjective Date of service: 03/13/17 Principal diagnosis: sepsis, [place] Interval history: still confused. requiring restraint Objective - Constitutional Vitals: Vital Signs - 12hr 03/12/17 03/13/17 03/13/17 22:33 00:35 04:25 Temperature 97.6 F 97.8 F Pulse Rate 61 Pulse Rate [ 60 68 Right Dorsalis Pedis] Respiratory 20 18 Rate Blood Pressure 112/64 116/64 [Right Arm] O2 Sat by Pulse 100 99 Oximetry General appearance: Present: obese, other (confused, still requiring restraints) - EENT Eyes: PERRL, EOM intact - Neck Neck: supple, normal ROM - Respiratory Respiratory effort: normal Respiratory: bilateral: diminished - Cardiovascular Rhythm: regular Heart Sounds: Present: S1 & S2. Absent: gallop, rub Extremities: pulses intact, No edema, normal color, Full ROM - Gastrointestinal General gastrointestinal: Present: soft, non-tender, non-distended, normal bowel sounds - Integumentary Integumentary: clear, warm, dry - Musculoskeletal Musculoskeletal: 1, strength equal bilaterally - Neurologic Neurologic: moves all extremities - Psychiatric Psychiatric: memory intact, appropriate mood/affect, intact judgment & insight - Labs CBC & Chem 7: 03/13/17 05:19 03/13/17 05:19 Labs: Abnormal lab results 03/12/17 03/12/17 03/12/17 Range/Units 07:08 12:05 18:04 WBC (4.5-11.0) K/mm3 Hgb (11.8-15.2) gm/dl Hct (35.5-45.6) % MCH (28-32) pg RDW (13.2-15.2) % Plt Count 60 L (140-440) K/mm3 Lymph % (Auto) (13.4-35.0) % Lymphocytes % (Manual) 36.0 H (13.4-35.0) % Nucleated RBC % 1.0 H (0.0-0.9) % Sodium (137-145) mmol/L Potassium (3.6-5.0) mmol/L Chloride (98-107) mmol/L BUN (9-20) mg/dL Creatinine (0.8-1.5) mg/dL Glucose (75-100) mg/dL POC Glucose 69 L 160 H (70-105) Calcium (8.4-10.2) mg/dL AST (5-40) units/L ALT (7-56) units/L Alkaline Phosphatase (35-129) units/L Ammonia (25-60) umol/L Total Protein (6.3-8.2) g/dL Albumin (3.9-5) g/dL 03/13/17 03/13/17 03/13/17 Range/Units 05:19 05:19 05:19 WBC 3.6 L (4.5-11.0) K/mm3 Hgb 11.2 L (11.8-15.2) gm/dl Hct 35.0 L (35.5-45.6) % MCH 27 L (28-32) pg RDW 22.3 H (13.2-15.2) % Plt Count 47 L (140-440) K/mm3 Lymph % (Auto) 38.3 H (13.4-35.0) % Lymphocytes % (Manual) (13.4-35.0) % Nucleated RBC % (0.0-0.9) % Sodium 146 H (137-145) mmol/L Potassium 3.5 L (3.6-5.0) mmol/L Chloride 107.1 H (98-107) mmol/L BUN 56 H (9-20) mg/dL Creatinine 1.7 H (0.8-1.5) mg/dL Glucose 68 L (75-100) mg/dL POC Glucose (70-105) Calcium 7.2 L (8.4-10.2) mg/dL AST 101 H (5-40) units/L ALT 107 H (7-56) units/L Alkaline Phosphatase 434 H (35-129) units/L Ammonia 17.0 L (25-60) umol/L Total Protein 5.3 L (6.3-8.2) g/dL Albumin 1.8 L (3.9-5) g/dL
--- NOTE | 2017-03-13 09:59 | Gastroenterology Progress Note ---
Assessment and Plan Abnormal LFT's - pt with mixed pattern of liver enzyme elevation (alk phos + ast /alt) with normal bilirubin which developed during hospitalization (normal on admission). Unknown trend during a one week period as labs were rechecked yesterday. Viral hepatitis serologies have been ordered (hep bc Igm negative, hep c negative). -US findings reviewed showing multiple GB polyps (largest > 1 cm) vs carcinoma. Ddx includes drug/medication induced hepatotoxicity (medications reviewed and seems less likely given active meds, although was on abx initially), infiltrative disorder (?malignancy), ischemic hepatitis (hypotension on admission). Favor latter diagnosis at present time as levels today are improving and known hypotension on admission -will obtain MRI/MRCP without contrast (due to renal function) to further evaluate GB abnormalities and to r/o biliary obstruction -consider surgery consult given GB polyp size (> 1 cm, and unable to r/o malignancy) Subjective Date of service: 03/13/17 Principal diagnosis: elevated liver enzymes, ams, mark Interval history: pt seen and examined. awake but confused and unable to answer questions. Objective - Exam Narrative Exam: Gen: NAD, confused/unable to answer questions CV: RRR Lungs: CTAB, non labored Abd: soft, nt, nd, +bs - Constitutional Vitals: Temp Pulse Resp BP Pulse Ox 97.5 F L 58 L 20 92/51 100 03/13/17 08:05 03/13/17 08:05 03/13/17 08:05 03/13/17 08:05 03/13/17 08:05 - Labs CBC & Chem 7: 03/13/17 05:19 03/13/17 05:19 Labs: Laboratory Results - last 24 hr 03/12/17 03/12/17 03/12/17 07:08 12:05 18:04 WBC RBC Hgb Hct MCV MCH MCHC RDW Plt Count 60 L Lymph % (Auto) [place] % (Auto) Eos % (Auto) Baso % (Auto) Lymph # [place] # Eos # Baso # Add Manual Diff Complete Total Counted 100 Seg Neutrophils % Seg Neuts % (Manual) 56.0 Band Neutrophils % 0 Lymphocytes % (Manual) 36.0 H Reactive Lymphs % (Man) 2.0 Monocytes % (Manual) 6.0 Eosinophils % (Manual) 0 Basophils % (Manual) 0 Metamyelocytes % 0 Myelocytes % 0 Promyelocytes % 0 Blast Cells % 0 Nucleated RBC % 1.0 H Seg Neutrophils # Seg Neutrophils # Man 2.3 Band Neutrophils # 0.0 Lymphocytes # (Manual) 1.5 Abs React Lymphs (Man) 0.1 Monocytes # (Manual) 0.2 Eosinophils # (Manual) 0.0 Basophils # (Manual) 0.0 Metamyelocytes # 0.0 Myelocytes # 0.0 Promyelocytes # 0.0 Blast Cells # 0.0 WBC Morphology Not Reportable Hypersegmented Neuts Not Reportable Hyposegmented Neuts Not Reportable Hypogranular Neuts Not Reportable Smudge Cells Not Reportable Toxic Granulation Not Reportable Toxic Vacuolation Not Reportable Dohle Bodies Not Reportable Pelger-Huet Anomaly Not Reportable Benedicto Rods Not Reportable Platelet Estimate Cons Clumped Platelets Not Reportable Plt Clumps, EDTA Not Reportable Large Platelets Few Giant Platelets Rare Platelet Satelliting Not Reportable Plt Morphology Comment Not Reportable RBC Morphology Not Reportable Dimorphic RBCs Not Reportable Polychromasia Not Reportable Hypochromasia Not Reportable Poikilocytosis 2+ Anisocytosis 1+ Microcytosis Not Reportable Macrocytosis Not Reportable Spherocytes Not Reportable Pappenheimer Bodies Not Reportable Sickle Cells Not Reportable Target Cells Not Reportable Tear Drop Cells Not Reportable Ovalocytes Not Reportable Helmet Cells Not Reportable [place] Bodies Not Reportable [place] Rings Not Reportable [place] Cells 2+ Bite Cells Not Reportable Crenated Cell Not Reportable Elliptocytes Not Reportable Acanthocytes (Spur) Not Reportable Rouleaux Not Reportable Hemoglobin C Crystals Not Reportable Schistocytes Not Reportable Malaria parasites Not Reportable Pierre Bodies Not Reportable Hem Pathologist Commnt No Sodium Potassium Chloride Carbon Dioxide Anion Gap BUN Creatinine Estimated GFR BUN/Creatinine Ratio Glucose POC Glucose 69 L 160 H Calcium Total Bilirubin AST ALT Alkaline Phosphatase Ammonia Total Protein Albumin Albumin/Globulin Ratio 03/13/17 03/13/17 03/13/17 02:24 05:19 05:19 WBC 3.6 L RBC 4.13 Hgb 11.2 L Hct 35.0 L MCV 85 MCH 27 L MCHC 32 RDW 22.3 H Plt Count 47 L Lymph % (Auto) 38.3 H [place] % (Auto) 6.7 Eos % (Auto) 0.4 Baso % (Auto) 0.1 Lymph # 1.4 [place] # 0.2 Eos # 0.0 Baso # 0.0 Add Manual Diff Total Counted Seg Neutrophils % 54.5 Seg Neuts % (Manual) Band Neutrophils % Lymphocytes % (Manual) Reactive Lymphs % (Man) Monocytes % (Manual) Eosinophils % (Manual) Basophils % (Manual) Metamyelocytes % Myelocytes % Promyelocytes % Blast Cells % Nucleated RBC % Seg Neutrophils # 2.0 Seg Neutrophils # Man Band Neutrophils # Lymphocytes # (Manual) Abs React Lymphs (Man) Monocytes # (Manual) Eosinophils # (Manual) Basophils # (Manual) Metamyelocytes # Myelocytes # Promyelocytes # Blast Cells # WBC Morphology Hypersegmented Neuts Hyposegmented Neuts Hypogranular Neuts Smudge Cells Toxic Granulation Toxic Vacuolation Dohle Bodies Pelger-Huet Anomaly Benedicto Rods Platelet Estimate Clumped Platelets Plt Clumps, EDTA Large Platelets Giant Platelets Platelet Satelliting Plt Morphology Comment RBC Morphology Dimorphic RBCs Polychromasia Hypochromasia Poikilocytosis Anisocytosis Microcytosis Macrocytosis Spherocytes Pappenheimer Bodies Sickle Cells Target Cells Tear Drop Cells Ovalocytes Helmet Cells [place] Bodies [place] Rings Buster Cells Bite Cells Crenated Cell Elliptocytes Acanthocytes (Spur) Rouleaux Hemoglobin C Crystals Schistocytes Malaria parasites Pierre Bodies Hem Pathologist Commnt Sodium 146 H Potassium 3.5 L Chloride 107.1 H Carbon Dioxide 26 Anion Gap 16 BUN 56 H Creatinine 1.7 H Estimated GFR 47 BUN/Creatinine Ratio 32.94 Glucose 68 L POC Glucose 103 Calcium 7.2 L Total Bilirubin 0.50 AST 101 H ALT 107 H Alkaline Phosphatase 434 H Ammonia Total Protein 5.3 L Albumin 1.8 L Albumin/Globulin Ratio 0.5 03/13/17 05:19 WBC RBC Hgb Hct MCV MCH MCHC RDW Plt Count Lymph % (Auto) [place] % (Auto) Eos % (Auto) Baso % (Auto) Lymph # [place] # Eos # Baso # Add Manual Diff Total Counted Seg Neutrophils % Seg Neuts % (Manual) Band Neutrophils % Lymphocytes % (Manual) Reactive Lymphs % (Man) Monocytes % (Manual) Eosinophils % (Manual) Basophils % (Manual) Metamyelocytes % Myelocytes % Promyelocytes % Blast Cells % Nucleated RBC % Seg Neutrophils # Seg Neutrophils # Man Band Neutrophils # Lymphocytes # (Manual) Abs React Lymphs (Man) Monocytes # (Manual) Eosinophils # (Manual) Basophils # (Manual) Metamyelocytes # Myelocytes # Promyelocytes # Blast Cells # WBC Morphology Hypersegmented Neuts Hyposegmented Neuts Hypogranular Neuts Smudge Cells Toxic Granulation Toxic Vacuolation Dohle Bodies Pelger-Huet Anomaly Benedicto Rods Platelet Estimate Clumped Platelets Plt Clumps, EDTA Large Platelets Giant Platelets Platelet Satelliting Plt Morphology Comment RBC Morphology Dimorphic RBCs Polychromasia Hypochromasia Poikilocytosis Anisocytosis Microcytosis Macrocytosis Spherocytes Pappenheimer Bodies Sickle Cells Target Cells Tear Drop Cells Ovalocytes Helmet Cells [place] Bodies [place] Rings Buster Cells Bite Cells Crenated Cell Elliptocytes Acanthocytes (Spur) Rouleaux Hemoglobin C Crystals Schistocytes Malaria parasites Pierre Bodies Hem Pathologist Commnt Sodium Potassium Chloride Carbon Dioxide Anion Gap BUN Creatinine Estimated GFR BUN/Creatinine Ratio Glucose POC Glucose Calcium Total Bilirubin AST ALT Alkaline Phosphatase Ammonia 17.0 L Total Protein Albumin Albumin/Globulin Ratio
[2017-03-13] MEDS ORDERED: K-DUR PO ONE (10:00)
[2017-03-13] MEDS: LOVENOX SUB-Q SCH (10:31)
--- NOTE | 2017-03-13 10:32 | Progress Note ---
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 * History of gross hematuria * Type II DM Recommendations * Continue IVF for volume repletion * cr is better today * Replete K prn, follow up mag levels * Abx per primary team * Avoid nephrotoxins * Strict intake and output * Monitor patient's renal function and electrolytes closely * ok to dc home from renal standpoint Subjective Date of service: 03/13/17 Principal diagnosis: elevated liver enzymes, ams, mark Interval history: resting in bed, no acute events Objective - Exam Narrative Exam: General appearance: well-developed, well-nourished EENT: ATNC Respiratory: Present: Clear to Ascultation Cardiology: regular, S1S2 Gastrointestinal: normal Musculoskeletal: other (no edema) Psychiatric: cooperative - Vital Signs Vital signs: Vital Signs - 12hr 03/12/17 03/13/17 03/13/17 22:33 00:35 04:25 Temperature 97.6 F 97.8 F Pulse Rate 61 Pulse Rate [ 60 68 Right Dorsalis Pedis] Pulse Rate [ Right Radial] Respiratory 20 18 Rate Blood Pressure [Left Arm] Blood Pressure 112/64 116/64 [Right Arm] O2 Sat by Pulse 100 99 Oximetry 03/13/17 08:05 Temperature 97.5 F L Pulse Rate Pulse Rate [ Right Dorsalis Pedis] Pulse Rate [ 58 L Right Radial] Respiratory 20 Rate Blood Pressure 92/51 [Left Arm] Blood Pressure [Right Arm] O2 Sat by Pulse 100 Oximetry - Lab 03/13/17 05:19 03/13/17 05:19 Most recent lab results Calcium 7.2 mg/dL (8.4-10.2) L 03/13/17 05:19 Magnesium 2.60 mg/dL (1.7-2.3) H 03/04/17 16:40
[2017-03-14] MEDS: NOVOLOG SUB-Q SCH ×4 (02:47→19:04)
[2017-03-14] MEDS: SYNTHROID PO SCH ×2 (05:12)
[2017-03-14] MEDS: KCL 10 MEQ in D5W 1,000 ML IV SCH ×2 (05:13→19:37)
--- NOTE | 2017-03-14 09:20 | Progress Note ---
Assessment and Plan Mr Dooley is a 81 yo AAM who presented with AMS, hypotension, and acute renal failure. Liver enzymes on admission were normal (on 03/04), but now showed new onset elevation in AST/ALT/alk phos. Acute renal failure probably secondary to vasomotor nephropathy and ATN -Avoid nephrotoxic medications , nephrology following Hypokalemia. -Will supplement Acute metabolic encephalopathy; -Multifactorial, mild improvement since admission, continue supportive care -Frequent neuro checks - CT head on admission did not show any acute change - will obtain MRI Hypernatremia -Continue IV fluids closely monitor monitor electrolytes and adjust as needed Hypoglycemia -Secondary to poor oral intake,change IV fluids to D5w, residual malnutrition, consider tube feeding if no improvement Transaminitis; worsening renal function -Ultrasound revealed gallbladder wall thickening and gallbladder wall polyps versus carcinoma -GI recommended to consult general surgery -MRCP pending Gram Negative staph Bacteremia. -positive in one of two bottles. Likely a contaminant, No fever or Leukocytosis. - will repeat blood cx hypothyroidism continue Synthroid DVT prophylaxis with Lovenox Subjective Date of service: 03/14/17 Principal diagnosis: sepsis, [place] Interval history: Patient seen and examined. Medical records and medication list reviewed. No acute event overnight noted by the RN. Patient has poor appetite Discussed plan of care at bedside with patient's . Objective - Exam Narrative Exam: GENERAL: well-developed AAM lying on bed appeared to be in no discomfort. HEENT: Normocephalic. Atraumatic. No conjunctival congestion or icterus. Patient has moist mucous membranes. NECK: Supple. Trachea midline. CHEST/LUNGS: Clear to auscultated bilaterally, breathing nonlabored. No wheezes crackles or rhonchi. HEART/CARDIOVASCULAR: Regular in rate and rhythm. S1 and S2 positive. ABDOMEN: Abdomen is soft, nontender. Patient has normal bowel sounds. SKIN: There is no rash. Warm and dry. NEURO: No focal motor deficit. Follows command. MUSCULOSKELETAL: No joint effusion or tenderness. EXTRIMITY: No edema, no cyanosis or clubbing. PSYCH: Cooperative. - Constitutional Vitals: Vital Signs - 12hr 03/13/17 03/14/17 03/14/17 22:00 01:30 06:05 Temperature 97.4 F L 97.4 F L Pulse Rate 62 Pulse Rate [ 63 65 Left Radial] Respiratory 20 20 Rate Blood Pressure 99/60 89/57 [Left Arm] O2 Sat by Pulse 100 98 Oximetry - Labs CBC & Chem 7: 03/14/17 11:20 03/14/17 11:20 Labs: Abnormal lab results 03/13/17 03/14/17 03/14/17 Range/Units 18:26 00:49 06:18 POC Glucose 107 H 147 H 151 H (70-105) 03/14/17 Range/Units 08:35 POC Glucose 161 H (70-105)
[2017-03-14] MEDS: LOVENOX SUB-Q SCH (10:23)
--- NOTE | 2017-03-14 11:36 | Progress Note ---
Assessment and Plan Impression * Acute kidney injury secondary to prerenal aztomeia --SCr 1.3mg/dL in October 2016 --Renal u/s no hydronephrosis --Serologies: dsDNA neg, ANCA neg, C3 low, C4 wnl * Hypernatremia - improved * Hypokalemia * Altered mental status * Coronary artery disease, hx of CABG * Hypotension * Possible sepsis --Blood cx 1/2 [employer] * History of gross hematuria * Type II DM * Gallbladder wall thickening Recommendations * Continue IVF for volume repletion * cr is better today * daily lytes * GI noted reviewed--?surgical consult * Replete K prn, follow up mag levels * Abx per primary team * Avoid nephrotoxins * Strict intake and output * Monitor patient's renal function and electrolytes closely Subjective Date of service: 03/14/17 Principal diagnosis: sepsis, [place] Interval history: resting in bed, no acute events Objective - Exam Narrative Exam: General appearance: well-developed, well-nourished EENT: ATNC Respiratory: Present: Clear to Ascultation Cardiology: regular, S1S2 Gastrointestinal: normal Musculoskeletal: other (no edema) Psychiatric: cooperative - Vital Signs Vital signs: Vital Signs - 12hr 03/14/17 03/14/17 03/14/17 01:30 06:05 09:34 Temperature 97.4 F L 97.4 F L 99.0 F Pulse Rate [ 63 65 Left Radial] Pulse Rate [ 67 Right Radial] Respiratory 20 20 16 Rate Blood Pressure 99/60 89/57 [Left Arm] Blood Pressure 101/62 [Right Arm] O2 Sat by Pulse 100 98 88 Oximetry - Lab 03/13/17 05:19 03/13/17 05:19 Most recent lab results Calcium 7.2 mg/dL (8.4-10.2) L 03/13/17 05:19 Magnesium 2.60 mg/dL (1.7-2.3) H 03/04/17 16:40
--- NOTE | 2017-03-14 11:50 | Gastroenterology Progress Note ---
Assessment and Plan -Awaiting MRI/MRCP w/o contrast for further evaluation of GB findings on US ( waiting for consent from family) - cont to trend liver enzymes Subjective Date of service: 03/14/17 Principal diagnosis: elevated liver enzymes, AMS, sepsis Interval history: no events reported overnight. pt with continued AMS. minimal oral intake. Objective - Exam Narrative Exam: Gen: elderly male, confused, non-verbal CV: tachycardic, s1 and s2 Abd: soft, nd, +bs Ext: right arm swelling - Constitutional Vitals: Temp Pulse Resp BP Pulse Ox 99.0 F 67 16 101/62 88 03/14/17 09:34 03/14/17 09:34 03/14/17 09:34 03/14/17 09:34 03/14/17 09:34 - Labs CBC & Chem 7: 03/13/17 05:19 03/13/17 05:19 Labs: Laboratory Results - last 24 hr 03/13/17 03/13/17 03/13/17 08:59 13:50 18:26 POC Glucose 91 95 107 H 03/14/17 03/14/17 03/14/17 00:49 06:18 08:35 POC Glucose 147 H 151 H 161 H
[2017-03-14 12:45] LABS: Hemoglobin 10.9 gm/dl (11.8-15.2)
[2017-03-14 13:14] LABS: BUN/Creatinine Ratio 32.5; Calcium 6.9 mg/dL (8.4-10.2); Chloride 101.5 mmol/L (98-107); Potassium 3.6 mmol/L (3.6-5.0)
[2017-03-14 13:16] LABS: Hematocrit 35.2 % (35.5-45.6); Mean Corpuscular HGB Conc 31 % (32-34); Mean Corpuscular Hemoglobin 27 pg (28-32); Mean Corpuscular Volume 86 fl (84-94); Red Blood Count 4.11 M/mm3 (3.65-5.03); White Blood Count 4.2 K/mm3 (4.5-11.0)
[2017-03-14 13:18] LABS: Platelet Count 52 K/mm3 (140-440); Red Cell Distribution Width 22.9 % (13.2-15.2)
[2017-03-14] MEDS ORDERED: ATIVAN IV PRN (18:53)
--- NOTE | 2017-03-14 19:21 | Magnetic Resonance Report ---
FINAL REPORT EXAM: MR BRAIN WO CON HISTORY: AMS TECHNIQUE: MRI brain without contrast PRIORS: None. FINDINGS: Exam is limited due to extensive motion artifact. There is normal signal throughout the brain parenchyma. No evidence for brain edema pattern or mass effect. There is generalized prominence of ventricles and sulci consistent with volume loss. No evidence for acute intra-axial or extra-axial hemorrhage. No evidence for acute restriction on diffusion-weighted study. Brainstem and posterior fossa structures are unremarkable. IMPRESSION: Motion artifact partially limiting the exam Moderate generalized parenchymal volume loss No acute abnormality identified.
[2017-03-15] MEDS: NOVOLOG SUB-Q SCH ×3 (01:36→16:51)
[2017-03-15] MEDS: SYNTHROID PO SCH ×2 (08:00)
--- NOTE | 2017-03-15 08:50 | Gastroenterology Progress Note ---
<MARLENA KEYS - Last Filed: 03/15/17 08:51> Assessment and Plan 1.Abnormal LFT's - pt with mixed pattern of liver enzyme elevation. -Hepatitis serology negative( C) Hepatitis A/B pending - TIFFANY negative. -US findings reviewed showing multiple GB polyps (largest > 1 cm) vs carcinoma. Ddx includes drug/medication induced hepatotoxicity (medications reviewed and seems less likely given active meds, although was on abx initially), infiltrative disorder (?malignancy), ischemic hepatitis, hypotension -MRI/MRCP of abdomen today. -Follow up LFTS today. -Consider surgery consult given GB polyp size (> 1 cm, and unable to r/o malignancy) Subjective Date of service: 03/15/17 Principal diagnosis: sepsis, [place] Interval history: Patient in restraints, unable to verbalize appropriately at this time. Objective - Constitutional Vitals: Temp Pulse Resp BP Pulse Ox 97.8 F 59 L 18 88/53 100 03/14/17 22:23 03/15/17 01:47 03/15/17 01:47 03/15/17 01:47 03/15/17 01:47 General appearance: no acute distress - EENT Eyes: EOM intact ENT: clear oral mucosa - Neck Neck: supple - Respiratory Respiratory: bilateral: diminished - Cardiovascular Rhythm: regular Heart Sounds: Present: S1 & S2 - Extremities Extremity abnormal: edema (mild Edema to lower ext) - Gastrointestinal General gastrointestinal: Present: soft, non-tender, normal bowel sounds - Labs CBC & Chem 7: 03/14/17 11:20 03/14/17 11:20 Labs: Laboratory Results - last 24 hr 03/14/17 03/14/17 03/14/17 08:35 11:20 11:20 WBC 4.2 L RBC 4.11 Hgb 10.9 L Hct 35.2 L MCV 86 MCH 27 L MCHC 31 L RDW 22.9 H Plt Count 52 L Sodium 139 Potassium 3.6 Chloride 101.5 Carbon Dioxide 23 Anion Gap 18 BUN 52 H Creatinine 1.6 H Estimated GFR 50 BUN/Creatinine Ratio 32.50 Glucose 132 H POC Glucose 161 H Calcium 6.9 L 03/14/17 03/15/17 12:29 00:37 WBC RBC Hgb Hct MCV MCH MCHC RDW Plt Count Sodium Potassium Chloride Carbon Dioxide Anion Gap BUN Creatinine Estimated GFR BUN/Creatinine Ratio Glucose POC Glucose 175 H 94 Calcium <SARA BERNAL Maggy - Last Filed: 03/15/17 14:36> Assessment and Plan Patient seen and examined. Agree with note by Soledad Keys. Mental status remains unchanged (non-verbal, not answering questions). Family at bedside today. Awaiting MRI. Monitor liver enzymes. Objective - Constitutional Vitals: Temp Pulse Resp BP Pulse Ox 97.3 F L 68 22 86/52 100 03/15/17 11:25 03/15/17 11:25 03/15/17 11:25 03/15/17 11:25 03/15/17 11:25 - Labs CBC & Chem 7: 03/14/17 11:20 03/14/17 11:20 Labs: Laboratory Results - last 24 hr 03/15/17 03/15/17 03/15/17 00:37 06:16 11:40 POC Glucose 94 111 H 63 L
[2017-03-15] MEDS: LOVENOX SUB-Q SCH (09:54)
--- NOTE | 2017-03-15 11:27 | Progress Note ---
Assessment and Plan General; no acute distress HEENT: Mild pallor no icterus oral mucosa moist Neck: Supple soft no jugular venous distention Chest: Bilateral clear to auscultation anteriorly posteriorly a few faint basilar crackles at the lung bases no wheezes Cardiovascular: S1-S2 heart no S3-S4 Abdomen: Soft nontender no voluntary guarding rigidity rebound no organomegaly no masses no suprapubic fullness no CVA tenderness Extremity: Minimal edema dry skin no tenderness i Derm: Dry skin Assessment and plan; Acute kidney injury creatinine is currently improving at 1.6 electrolytes stable , patient mostly appears to be prerenal Serologies are unremarkable Hypernatremia appears to have improved Patient still continues to be encephalopathic History of hematuria please consider urology consultation Renal ultrasonogram appears to be unremarkable patient likely has underlying dementia, also cerebral hypoperfusion due to hypotension does not help may benefit from urology evaluation Can benefit from some IV fluid Hypocalcemia patient will benefit from vitamin D replacement will check ionized calcium as his current albumin is 1.8 Hypokalemia appears to have improved Blood pressure is low normal Anemia chronic stable currently around 10.9 and 11.2 Mild leukopenia patient may benefit with hematology evaluation as he does have pancytopenia Subjective Principal diagnosis: sepsis, [place] Interval history: seen today for follow-up He is arousable no acute distress events of this hospitalization noted from nephrology perspective Blood pressure has been on the low side Objective - Vital Signs Vital signs: Vital Signs - 12hr 03/14/17 03/15/17 03/15/17 22:23 01:47 07:35 Temperature 97.8 F 97.4 F L Pulse Rate [ 60 59 L Right Dorsalis Pedis] Pulse Rate [ 64 Right Radial] Respiratory 20 18 20 Rate Blood Pressure 113/56 88/53 [Left Arm] Blood Pressure 88/56 [Right Arm] O2 Sat by Pulse 98 100 100 Oximetry - Lab 03/14/17 11:20 03/14/17 11:20 Most recent lab results Calcium 6.9 mg/dL (8.4-10.2) L 03/14/17 11:20 Magnesium 2.60 mg/dL (1.7-2.3) H 03/04/17 16:40
--- NOTE | 2017-03-15 15:38 | Progress Note ---
Assessment and Plan Mr Dooley is a 81 yo AAM who presented with AMS, hypotension, and acute renal failure. Liver enzymes on admission were normal (on 03/04), but now showed new onset elevation in AST/ALT/alk phos. Acute renal failure probably secondary to vasomotor nephropathy and ATN -Avoid nephrotoxic medications , nephrology following Hypokalemia. -repleted Acute metabolic encephalopathy; -Multifactorial, mild improvement since admission, continue supportive care -Frequent neuro checks - CT head on admission did not show any acute change - MRI with no acute change - Could have underlying dementia, will consult neurology Hypernatremia -Continue IV fluids closely monitor monitor electrolytes and adjust as needed Hypoglycemia -Secondary to poor oral intake,change IV fluids to D5w, residual malnutrition, consider tube feeding if no improvement Transaminitis; worsening renal function -Ultrasound revealed gallbladder wall thickening and gallbladder wall polyps versus carcinoma -GI recommended to consult general surgery -MRCP pending Gram Negative staph Bacteremia. -positive in one of two bottles. Likely a contaminant, No fever or Leukocytosis. -repeat blood cx negative hypothyroidism continue Synthroid DVT prophylaxis with Lovenox Subjective Date of service: 03/15/17 Principal diagnosis: sepsis, [place] Interval history: Patient seen and examined. Medical records and medication list reviewed. No acute event overnight noted by the RN. Patient has poor appetite Discussed plan of care at bedside with patient's family. Objective - Exam Narrative Exam: GENERAL: well-developed AAM lying on bed appeared to be in no discomfort. HEENT: Normocephalic. Atraumatic. No conjunctival congestion or icterus. Patient has moist mucous membranes. NECK: Supple. Trachea midline. CHEST/LUNGS: Clear to auscultated bilaterally, breathing nonlabored. No wheezes crackles or rhonchi. HEART/CARDIOVASCULAR: Regular in rate and rhythm. S1 and S2 positive. ABDOMEN: Abdomen is soft, nontender. Patient has normal bowel sounds. SKIN: There is no rash. Warm and dry. NEURO: No focal motor deficit. MUSCULOSKELETAL: No joint effusion or tenderness. EXTRIMITY: No edema, no cyanosis or clubbing. PSYCH: Cooperative. - Constitutional Vitals: Vital Signs - 12hr 03/15/17 03/15/17 03/15/17 07:35 10:00 11:25 Temperature 97.4 F L 97.3 F L Pulse Rate 64 Pulse Rate [ 64 68 Right Radial] Respiratory 20 22 Rate Blood Pressure 88/56 86/52 [Right Arm] O2 Sat by Pulse 100 100 Oximetry - Labs CBC & Chem 7: 03/14/17 11:20 03/14/17 11:20 Labs: Abnormal lab results 03/15/17 03/15/17 Range/Units 06:16 11:40 POC Glucose 111 H 63 L (70-105)
[2017-03-16] MEDS ORDERED: GLUCAGEN IM ONE (01:05)
[2017-03-16] MEDS: NOVOLOG SUB-Q SCH ×5 (01:19→22:53)
[2017-03-16] MEDS: AMBIEN PO SCH ×2 (01:20→22:53)
[2017-03-16 06:44] LABS: Basophils % (Auto) 0.3 % (0.0-1.8); Eosinophils % (Auto) 0.1 % (0.0-4.3); Hematocrit 34.2 % (35.5-45.6); Hemoglobin 10.9 gm/dl (11.8-15.2); Mean Corpuscular HGB Conc 32 % (32-34); Mean Corpuscular Hemoglobin 27 pg (28-32); Mean Corpuscular Volume 84 fl (84-94); Red Blood Count 4.06 M/mm3 (3.65-5.03); White Blood Count 6.2 K/mm3 (4.5-11.0)
[2017-03-16 06:46] LABS: Alanine Aminotransferase 83 units/L (7-56); Albumin 1.8 g/dL (3.9-5); Albumin/Globulin Ratio 0.5 %; Alkaline Phosphatase 365 units/L (35-129); Total Protein 5.1 g/dL (6.3-8.2)
[2017-03-16 06:47] LABS: BUN/Creatinine Ratio 35.71; Chloride 105.4 mmol/L (98-107); Potassium 3.9 mmol/L (3.6-5.0)
[2017-03-16 06:51] LABS: Bilirubin,Direct < 0.2 mg/dL (0-0.2); Bilirubin,Indirect 0.2 mg/dL
[2017-03-16 07:04] LABS: Platelet Count 46 K/mm3 (140-440); Red Cell Distribution Width 23.4 % (13.2-15.2)
--- NOTE | 2017-03-16 09:34 | XRay Report ---
ABDOMEN RADIOGRAPH INDICATION: Dobbhoff placement. COMPARISON: 03/05/2017 FINDINGS: Frontal abdominal radiograph demonstrates new Dobbhoff tube extending past the GE junction its tip in the proximal stomach, directed laterally. Few air containing small bowel loops measure up to 2.9 cm in the mid to lower abdomen/possible ileus. Nonobstructive colonic pattern. Stable sternotomy wires and multilevel spinal degenerative changes. CONCLUSION: New Dobbhoff tube that may be advanced by approximately 10-12 cm to attempt placement along the distal stomach or the duodenum, if so appropriate. Thank you for the opportunity to participate in this patient's care.
[2017-03-16] MEDS ORDERED: SIMPLE SYRUP FEEDTUBE PRN ×4 (10:44→11:01)
[2017-03-16] MEDS ORDERED: PANCREAZE DR 10,500 UNIT FEEDTUBE PRN ×2 (10:44→11:01)
[2017-03-16] MEDS ORDERED: SODIUM BICARBONATE FEEDTUBE PRN ×2 (10:44→11:01)
--- NOTE | 2017-03-16 10:54 | Consultation ---
History of Present Illness Consult date: 03/16/17 Requesting physician: KELLI AGUILAR Reason for Consult: AMS Chief complaint: AMS limits direct hx History of present illness: 81 yo AAM Hx suspected [facility]/ [facility]/ walker does not walk or drive or manage finances w/ limited verbal communicative admitted 03/04 for AMS, hypotension, and acute renal failure. Hospitalization also c/b transaminitis, hyperNa, hypoglycemia, and hypocalcemia.Sx of AMS are constant but waxing and waning. There are no clear aggravating, relieving or temporal factors. Severity is such to limit ADLs/ communication. Past History Past Medical History: CAD, diabetes, hypertension, other (suspected dementia) Past Surgical History: CABG Social history: single, lives with family. denies: smoking, alcohol abuse, prescription drug abuse Family history: diabetes, hypertension Medications and Allergies Allergies Allergy/AdvReac Type Severity Reaction Status Date / Time No Known Allergies Allergy Verified 11/07/16 21:44 Home Medications Medication Instructions Recorded Confirmed Last Taken Type Unobtainable 03/04/17 03/04/17 Unknown History Active Meds: Active Medications Acetaminophen (Tylenol) 650 mg PO Q4H PRN PRN Reason: Pain MILD(1-3)/Fever >100.5/HUI Albuterol (Proventil) 2.5 mg IH Q4H PRN PRN Reason: Shortness Of Breath Lipase/Protease/Amylase (Pancreaze Dr 10,500 Unit) 1 each FEEDTUBE PRN PRN PRN Reason: For Clogged Feeding Tube Bisacodyl (Dulcolax) 10 mg OK QDAY PRN PRN Reason: Constipation unrelieved by MOM Dextrose (D50w (25gm)) 50 ml IV PRN PRN PRN Reason: Hypoglycemia Last Admin: 03/12/17 12:20 Dose: 50 ml Enoxaparin Sodium (Lovenox) 40 mg SUB-Q QDAY TYRONE Potassium Chloride 10 meq/ (Dextrose) 1,005 mls @ 100 mls/hr IV DIRECT TYRONE Last Admin: 03/14/17 19:37 Dose: 100 mls/hr Insulin Aspart (Novolog) 0 units SUB-Q Q6HR TYRONE PRN Reason: Protocol Last Admin: 03/16/17 06:40 Dose: Not Given Levothyroxine Sodium (Synthroid) 112 mcg PO DAILY@0600 [facility] Last Admin: 03/15/17 08:00 Dose: Not Given Levothyroxine Sodium (Synthroid) 25 mcg PO DAILY@0600 [facility] Last Admin: 03/15/17 08:00 Dose: Not Given Lorazepam (Ativan) 1 mg IV Q4H PRN PRN Reason: Agitation Ondansetron HCl (Zofran) 4 mg IV Q8H PRN PRN Reason: N/V unrelieved by Reglan Simple Syrup (Simple Syrup) 15 ml FEEDTUBE PRN PRN PRN Reason: Hypoglycemia Simple Syrup (Simple Syrup) 30 ml FEEDTUBE PRN PRN PRN Reason: Hypoglycemia Sodium Bicarbonate (Sodium Bicarbonate) 325 mg FEEDTUBE PRN PRN PRN Reason: For Clogged Feeding Tube Zolpidem Tartrate (Ambien) 10 mg PO QHS [facility] Last Admin: 03/16/17 01:20 Dose: Not Given Review of Systems ROS unobtainable: due to mental status Physical Examination - Vital Signs Vital Signs: Vital Signs Temp Pulse Resp BP Pulse Ox 98.2 F 64 18 88/42 89 03/04/17 16:01 03/04/17 16:01 03/04/17 16:01 03/04/17 16:01 03/04/17 16:01 - Constitutional General appearance: uncomfortable, acutely ill, chronically ill - EENT EENT: Present: ATNC, PERRL, mucous membranes dry, hearing intact - Respiratory Respiratory: Present: chest non-tender, normal breath sounds, no respiratory distress - Cardiovascular Cardiovascular: Present: regular rate Extremities: Present: no peripheral edema bilatateraly, no clubbing, cyanosis, no inflammation, no ischemia or petechiae - Gastrointestinal Gastrointestinal: Present: normoactive bowel sounds, soft, non-distended - Integumentary Integumentary: Present: normal - Neurologic Cranial nerve examination: PERRL, EOMI, face symmetric, tongue midline, intact, intact shoulder shrug, Intact Vestibulo-ocular r, intact corneal reflex, normal palatal elevation Speech examination: other (paucity of speech but follows peripheral commands) Detailed motor examination: grossly full strength in Motor examination - right side: 5/5: biceps, triceps, wrist flexion, wrist extension, carbon accountant, hip flexors, knee extensors, dorsiflexion, toe extension (EHL) , plantarflexion Motor examination - left side: 5/5: biceps, triceps, wrist flexion, wrist extension, carbon accountant, hip flexors, knee extensors, dorsiflexion, toe extension (EHL) , plantarflexion Detailed sensory examination: intact, pain Reflex and gait examination: intact Reflexes: 0: ankle, 2+: bicep, knee, tricep - Musculoskeletal Musculoskeletal: Present: no fluid collection, no pain, normal range of motion - Psychiatric Psychiatric: Present: agitated Results - Laboratory Findings CBC and BMP: 03/16/17 04:59 03/16/17 04:59 Abnormal Lab Findings: Abnormal Labs 03/04/17 03/05/17 03/05/17 19:08 06:53 07:08 WBC Hgb Hct MCH 27 L MCHC 31 L RDW 21.1 H Plt Count 95 L Lymph % (Auto) Seg Neutrophils % 79.4 H Seg Neuts % (Manual) Lymphocytes % (Manual) Nucleated RBC % Seg Neutrophils # 7.8 H Lymphocytes # (Manual) Sodium 155 H Potassium 2.7 L* Chloride 107.4 H Carbon Dioxide BUN 103 H Creatinine 3.2 H Glucose 250 H POC Glucose Lactic Acid 2.50 H* Calcium 7.2 L AST ALT Alkaline Phosphatase Ammonia Serum Total Protein Total Protein Albumin Squmg-6-Pryptvuud Beta Globulins PEP Interpretation Complement C3 03/05/17 03/05/17 03/05/17 08:13 12:18 14:08 WBC Hgb Hct MCH MCHC RDW Plt Count Lymph % (Auto) Seg Neutrophils % Seg Neuts % (Manual) Lymphocytes % (Manual) Nucleated RBC % Seg Neutrophils # Lymphocytes # (Manual) Sodium Potassium Chloride Carbon Dioxide BUN Creatinine Glucose POC Glucose 250 H 284 H Lactic Acid Calcium AST ALT Alkaline Phosphatase Ammonia Serum Total Protein Total Protein Albumin Iwfem-8-Csnbeanmk Beta Globulins PEP Interpretation Complement C3 65 L 03/05/17 03/05/17 03/05/17 17:27 19:54 21:15 WBC Hgb Hct MCH MCHC RDW Plt Count Lymph % (Auto) Seg Neutrophils % Seg Neuts % (Manual) Lymphocytes % (Manual) Nucleated RBC % Seg Neutrophils # Lymphocytes # (Manual) Sodium 150 H Potassium Chloride Carbon Dioxide BUN 102 H Creatinine 3.5 H Glucose 231 H POC Glucose 327 H 208 H Lactic Acid Calcium 7.1 L AST ALT Alkaline Phosphatase Ammonia Serum Total Protein Total Protein Albumin Bbcpw-1-Pevhtcaii Beta Globulins PEP Interpretation Complement C3 03/06/17 03/06/17 03/06/17 10:30 10:30 11:54 WBC Hgb Hct MCH MCHC RDW Plt Count Lymph % (Auto) Seg Neutrophils % Seg Neuts % (Manual) Lymphocytes % (Manual) Nucleated RBC % Seg Neutrophils # Lymphocytes # (Manual) Sodium 156 H Potassium 3.2 L Chloride 108.2 H Carbon Dioxide 31 H BUN 106 H Creatinine 3.4 H Glucose 122 H POC Glucose 139 H Lactic Acid Calcium 7.4 L AST ALT Alkaline Phosphatase Ammonia Serum Total Protein 5.7 L Total Protein Albumin 2.3 L Vvuzw-5-Tvdlinkhq 0.4 H Beta Globulins 0.6 H PEP Interpretation see below H Complement C3 03/06/17 03/06/17 03/07/17 16:35 20:51 03:54 WBC Hgb Hct MCH MCHC RDW Plt Count Lymph % (Auto) Seg Neutrophils % Seg Neuts % (Manual) Lymphocytes % (Manual) Nucleated RBC % Seg Neutrophils # Lymphocytes # (Manual) Sodium 152 H Potassium Chloride 107.3 H Carbon Dioxide BUN 96 H Creatinine 2.9 H Glucose 170 H POC Glucose 175 H 214 H Lactic Acid Calcium 7.0 L AST ALT Alkaline Phosphatase Ammonia Serum Total Protein Total Protein Albumin Wovem-1-Viwxcolsh Beta Globulins PEP Interpretation Complement C3 03/07/17 03/07/17 03/07/17 03:54 05:44 08:41 WBC Hgb Hct MCH MCHC RDW Plt Count Lymph % (Auto) Seg Neutrophils % Seg Neuts % (Manual) Lymphocytes % (Manual) Nucleated RBC % Seg Neutrophils # Lymphocytes # (Manual) Sodium 151 H Potassium 3.5 L Chloride Carbon Dioxide BUN 96 H Creatinine 2.9 H Glucose 169 H POC Glucose 180 H 136 H Lactic Acid Calcium 7.1 L AST ALT Alkaline Phosphatase Ammonia Serum Total Protein Total Protein Albumin Eofyg-0-Tiyhzhgdp Beta Globulins PEP Interpretation Complement C3 03/08/17 03/08/17 03/08/17 04:39 05:27 12:01 WBC Hgb Hct MCH MCHC RDW Plt Count Lymph % (Auto) Seg Neutrophils % Seg Neuts % (Manual) Lymphocytes % (Manual) Nucleated RBC % Seg Neutrophils # Lymphocytes # (Manual) Sodium 151 H Potassium 2.7 L* D Chloride Carbon Dioxide BUN 93 H Creatinine 3.1 H Glucose 184 H POC Glucose 193 H 114 H Lactic Acid Calcium 7.0 L AST ALT Alkaline Phosphatase Ammonia Serum Total Protein Total Protein Albumin Ubrcy-4-Uwkbescsj Beta Globulins PEP Interpretation Complement C3 03/09/17 03/09/17 03/10/17 04:40 13:03 05:04 WBC Hgb Hct MCH MCHC RDW Plt Count Lymph % (Auto) Seg Neutrophils % Seg Neuts % (Manual) Lymphocytes % (Manual) Nucleated RBC % Seg Neutrophils # Lymphocytes # (Manual) Sodium 150 H 149 H Potassium 3.0 L 2.8 L* Chloride 107.5 H 107.7 H Carbon Dioxide BUN 93 H 85 H Creatinine 2.8 H 2.4 H Glucose POC Glucose 155 H Lactic Acid Calcium 6.6 L 6.6 L AST ALT Alkaline Phosphatase Ammonia Serum Total Protein Total Protein Albumin Hdeul-8-Isihfxdmw Beta Globulins PEP Interpretation Complement C3 03/10/17 03/10/17 03/11/17 12:39 21:29 06:33 WBC Hgb Hct MCH MCHC RDW Plt Count Lymph % (Auto) Seg Neutrophils % Seg Neuts % (Manual) Lymphocytes % (Manual) Nucleated RBC % Seg Neutrophils # Lymphocytes # (Manual) Sodium Potassium Chloride Carbon Dioxide BUN Creatinine Glucose POC Glucose 108 H 123 H 131 H Lactic Acid Calcium AST ALT Alkaline Phosphatase Ammonia Serum Total Protein Total Protein Albumin Dgdip-0-Yxzihrikc Beta Globulins PEP Interpretation Complement C3 03/11/17 03/11/17 03/11/17 08:00 08:00 11:40 WBC Hgb 10.9 L Hct 34.7 L MCH MCHC RDW 22.0 H Plt Count 49 L Lymph % (Auto) Seg Neutrophils % Seg Neuts % (Manual) 81.0 H Lymphocytes % (Manual) Nucleated RBC % 1.0 H Seg Neutrophils # Lymphocytes # (Manual) 0.9 L Sodium 147 H Potassium Chloride 108.4 H Carbon Dioxide 19 L BUN 73 H Creatinine 2.4 H Glucose 128 H POC Glucose 187 H Lactic Acid Calcium 6.7 L AST 123 H ALT 118 H Alkaline Phosphatase 439 H Ammonia Serum Total Protein Total Protein 4.9 L Albumin 2.0 L Akiom-4-Thlipfqgk Beta Globulins PEP Interpretation Complement C3 03/11/17 03/12/17 03/12/17 18:24 07:08 07:08 WBC 4.1 L Hgb 11.5 L Hct MCH MCHC RDW 22.6 H Plt Count 60 L Lymph % (Auto) Seg Neutrophils % Seg Neuts % (Manual) Lymphocytes % (Manual) 36.0 H Nucleated RBC % 1.0 H Seg Neutrophils # Lymphocytes # (Manual) Sodium 148 H Potassium Chloride 109.8 H Carbon Dioxide BUN 64 H Creatinine 2.0 H Glucose POC Glucose 186 H Lactic Acid Calcium 6.7 L AST 123 H ALT 121 H Alkaline Phosphatase 489 H Ammonia Serum Total Protein Total Protein 4.9 L Albumin 2.0 L Nwyvi-7-Jmsycsgeb Beta Globulins PEP Interpretation Complement C3 03/12/17 03/12/17 03/13/17 12:05 18:04 05:19 WBC 3.6 L Hgb 11.2 L Hct 35.0 L MCH 27 L MCHC RDW 22.3 H Plt Count 47 L Lymph % (Auto) 38.3 H Seg Neutrophils % Seg Neuts % (Manual) Lymphocytes % (Manual) Nucleated RBC % Seg Neutrophils # Lymphocytes # (Manual) Sodium Potassium Chloride Carbon Dioxide BUN Creatinine Glucose POC Glucose 69 L 160 H Lactic Acid Calcium AST ALT Alkaline Phosphatase Ammonia Serum Total Protein Total Protein Albumin Clhsm-0-Mxswfmkil Beta Globulins PEP Interpretation Complement C3 03/13/17 03/13/17 03/13/17 05:19 05:19 18:26 WBC Hgb Hct MCH MCHC RDW Plt Count Lymph % (Auto) Seg Neutrophils % Seg Neuts % (Manual) Lymphocytes % (Manual) Nucleated RBC % Seg Neutrophils # Lymphocytes # (Manual) Sodium 146 H Potassium 3.5 L Chloride 107.1 H Carbon Dioxide BUN 56 H Creatinine 1.7 H Glucose 68 L POC Glucose 107 H Lactic Acid Calcium 7.2 L AST 101 H ALT 107 H Alkaline Phosphatase 434 H Ammonia 17.0 L Serum Total Protein Total Protein 5.3 L Albumin 1.8 L Yihzp-5-Rxtcbsece Beta Globulins PEP Interpretation Complement C3 03/14/17 03/14/17 03/14/17 00:49 06:18 08:35 WBC Hgb Hct MCH MCHC RDW Plt Count Lymph % (Auto) Seg Neutrophils % Seg Neuts % (Manual) Lymphocytes % (Manual) Nucleated RBC % Seg Neutrophils # Lymphocytes # (Manual) Sodium Potassium Chloride Carbon Dioxide BUN Creatinine Glucose POC Glucose 147 H 151 H 161 H Lactic Acid Calcium AST ALT Alkaline Phosphatase Ammonia Serum Total Protein Total Protein Albumin Weeon-1-Xfokrwsgp Beta Globulins PEP Interpretation Complement C3 03/14/17 03/14/17 03/14/17 11:20 11:20 12:29 WBC 4.2 L Hgb 10.9 L Hct 35.2 L MCH 27 L MCHC 31 L RDW 22.9 H Plt Count 52 L Lymph % (Auto) Seg Neutrophils % Seg Neuts % (Manual) Lymphocytes % (Manual) Nucleated RBC % Seg Neutrophils # Lymphocytes # (Manual) Sodium Potassium Chloride Carbon Dioxide BUN 52 H Creatinine 1.6 H Glucose 132 H POC Glucose 175 H Lactic Acid Calcium 6.9 L AST ALT Alkaline Phosphatase Ammonia Serum Total Protein Total Protein Albumin Qkrpw-4-Drxcffdrv Beta Globulins PEP Interpretation Complement C3 03/15/17 03/15/17 03/15/17 06:16 11:40 23:49 WBC Hgb Hct MCH MCHC RDW Plt Count Lymph % (Auto) Seg Neutrophils % Seg Neuts % (Manual) Lymphocytes % (Manual) Nucleated RBC % Seg Neutrophils # Lymphocytes # (Manual) Sodium Potassium Chloride Carbon Dioxide BUN Creatinine Glucose POC Glucose 111 H 63 L 52 L Lactic Acid Calcium AST ALT Alkaline Phosphatase Ammonia Serum Total Protein Total Protein Albumin Ozzvn-8-Qipprwhip Beta Globulins PEP Interpretation Complement C3 03/15/17 03/16/17 03/16/17 23:56 04:59 04:59 WBC Hgb 10.9 L Hct 34.2 L MCH 27 L MCHC RDW 23.4 H Plt Count 46 L Lymph % (Auto) Seg Neutrophils % Seg Neuts % (Manual) Lymphocytes % (Manual) Nucleated RBC % Seg Neutrophils # Lymphocytes # (Manual) Sodium Potassium Chloride Carbon Dioxide BUN Creatinine Glucose POC Glucose 49 L Lactic Acid Calcium AST 74 H ALT 83 H Alkaline Phosphatase 365 H Ammonia Serum Total Protein Total Protein 5.1 L Albumin 1.8 L Atwhu-6-Txrhjxinr Beta Globulins PEP Interpretation Complement C3 03/16/17 03/16/17 04:59 06:39 WBC Hgb Hct MCH MCHC RDW Plt Count Lymph % (Auto) Seg Neutrophils % Seg Neuts % (Manual) Lymphocytes % (Manual) Nucleated RBC % Seg Neutrophils # Lymphocytes # (Manual) Sodium Potassium Chloride Carbon Dioxide BUN 50 H Creatinine Glucose 47 L POC Glucose 40 L Lactic Acid Calcium 7.0 L AST ALT Alkaline Phosphatase Ammonia Serum Total Protein Total Protein Albumin Sevin-5-Qcfmaixgy Beta Globulins PEP Interpretation Complement C3 Assessment and Plan 81 yo AAM Hx suspected dementia [facility] stands w/ assist/ walker does not walk or drive or manage finances w/ limited verbal communicative admitted 5/6 for AMS in setting of, hypotension and ARF but hospitalization also c/b transaminitis, hyperNa, hypoglycemia, and hypocalcemia. On exam pt w/ drowsiness, poor concentration but follows peripheral commands otherwise intact symmetric neurologic exam, consistent with toxic metabolic infectious derangement as the etiology for neurologic decompensation. There is no new focality on neurologic examination to suggest acute INSTITUTION DIRECTOR process e.g. Stroke, Seizure or Meningitis. MRI Brain/CTH nonacute moderate atrophy. TSH high but T4 normal. NH4 neg Recommendations: 1. Check serum Vit B12 and correct as necessary 2. Cont Infectious work up/medical management for UTI, PNA, cellulitis, bacteremia, etc. 3. Avoid hyponatremia, hypo/hyper-calcemia, hypo/hyperglycemia, acidosis, hypoxia/hypoxemia, hypercarbia/hypercapnia 4. Avoid institution of any psychoactive medications (e.g. antihistamines, anticholinergics, BZD, hypnotics, opiates) as able unless low doses of low potency antipsychotic needed for behavioral issues complicating medical care 5. Specific neurologic assessment of likelihood of prognosis back to baseline @ this point is limited as there is no acute primary neurologic issue ongoing, and therefore prognosis will be completely secondary to any potential progress patient is able to make from multiple ongoing medical issues as above. 6. Cont home meds-there is no neurologic indication to change 7. f/u outpt neuro @ [place]
[2017-03-16] MEDS: LOVENOX SUB-Q SCH (12:32)
[2017-03-16] MEDS: SYNTHROID PO SCH ×2 (12:32→12:33)
--- NOTE | 2017-03-16 12:51 | Progress Note ---
Assessment and Plan Labs; reviewed Interdisciplinary notes off past 24 hours reviewed Social history: Reviewed Family history: Reviewed Allergies: Reviewed Physical examination Vitals reviewed HEENT:Mild pallor no icterus Neck: Supple no thyromegaly or nodular mass Chest: Clear to auscultation Heart:Regular rate rhythm S1-S2 heard Abdomen: Soft nontender no voluntary guarding rigidity rebound Extremities minimal edema dry skin Neurological alert awake oriented Dermatology dry skin Assessment and plan; Acute kidney injury creatinine is currently normalize now Patient mostly appeared to be prerenal Hypernatremia appears to have improved Patient still continues to be encephalopathic, And does not have good comprehension History of hematuria please consider urology consultation Renal ultrasonogram appears to be unremarkable patient likely has underlying dementia, also cerebral hypoperfusion due to hypotension does not help may benefit from neurology evaluation Can benefit from some IV fluid Hypocalcemia patient will benefit from vitamin D replacement will check ionized calcium as his current albumin is 1.8 Hypokalemia appears to have improved Blood pressure is low normal Anemia chronic stable currently around 10.9 and 11.2 Mild leukopenia patient may benefit with hematology evaluation as he does have pancytopenia since renal function has resolved we'll like to sign off the case please call if needed Subjective Principal diagnosis: sepsis, [place] Interval history: patient is seen for follow-up on multiple renal-related issues Patient does not appear to be in any acute distress Creatinine appears to be improving Objective - Vital Signs Vital signs: Vital Signs - 12hr 03/16/17 04:15 Temperature 97.7 F Pulse Rate [ 78 Right Dorsalis Pedis] Respiratory 18 Rate Blood Pressure 127/56 [Left Arm] O2 Sat by Pulse 99 Oximetry - Lab 03/16/17 04:59 03/16/17 04:59 Most recent lab results Calcium 7.0 mg/dL (8.4-10.2) L 03/16/17 04:59 Magnesium 2.60 mg/dL (1.7-2.3) H 03/04/17 16:40
--- NOTE | 2017-03-16 16:11 | Progress Note ---
Assessment and Plan Mr Dooley is a 81 yo AAM who presented with AMS, hypotension, and acute renal failure. Liver enzymes on admission were normal (on 03/04), but now showed new onset elevation in AST/ALT/alk phos. Acute renal failure probably secondary to vasomotor nephropathy and ATN -Avoid nephrotoxic medications , nephrology following Hypokalemia. -repleted Acute metabolic encephalopathy; -Multifactorial, mild improvement since admission, continue supportive care -Frequent neuro checks - CT head on admission did not show any acute change - MRI with no acute change - Could have underlying dementia, will consult neurology Hypernatremia -Continue IV fluids closely monitor monitor electrolytes and adjust as needed Hypoglycemia -Secondary to poor oral intake,change IV fluids to D5w, residual malnutrition, - place on tube feeding today Transaminitis; worsening renal function -Ultrasound revealed gallbladder wall thickening and gallbladder wall polyps versus carcinoma -GI recommended to consult general surgery -MRCP pending Gram Negative staph Bacteremia. -positive in one of two bottles. Likely a contaminant, No fever or Leukocytosis. -repeat blood cx negative hypothyroidism continue Synthroid DVT prophylaxis with Lovenox Disposition: likely with hospice if no improvement in next 48 h. Family want DNR. Subjective Date of service: 03/16/17 Principal diagnosis: sepsis, [place] Interval history: Patient seen and examined. Medical records and medication list reviewed. No acute event overnight noted by the RN. Patient has poor appetite, BG dropped since last night Unable to put a midline for hydration, pt refused/could not take dextrose tabs Placed on Ng tube today to initiate tube feeding Discussed plan of care at bedside with patient's family and CM. Objective - Exam Narrative Exam: GENERAL: well-developed AAM lying on bed appeared to be in no discomfort. HEENT: Normocephalic. Atraumatic. No conjunctival congestion or icterus. Patient has moist mucous membranes. dobhoff on place NECK: Supple. Trachea midline. CHEST/LUNGS: Clear to auscultated bilaterally, breathing nonlabored. No wheezes crackles or rhonchi. HEART/CARDIOVASCULAR: Regular in rate and rhythm. S1 and S2 positive. ABDOMEN: Abdomen is soft, nontender. Patient has normal bowel sounds. SKIN: There is no rash. Warm and dry. NEURO: No focal motor deficit. MUSCULOSKELETAL: No joint effusion or tenderness. EXTRIMITY: No edema, no cyanosis or clubbing. PSYCH: Cooperative. - Constitutional Vitals: Vital Signs - 12hr 03/16/17 03/16/17 04:15 10:00 Temperature 97.7 F Pulse Rate 58 L Pulse Rate [ 78 Right Dorsalis Pedis] Respiratory 18 Rate Blood Pressure 127/56 [Left Arm] O2 Sat by Pulse 99 Oximetry - Labs CBC & Chem 7: 03/16/17 04:59 03/16/17 04:59 Labs: Abnormal lab results 03/15/17 03/15/17 03/16/17 Range/Units 23:49 23:56 04:59 Hgb 10.9 L (11.8-15.2) gm/dl Hct 34.2 L (35.5-45.6) % MCH 27 L (28-32) pg RDW 23.4 H (13.2-15.2) % Plt Count 46 L (140-440) K/mm3 BUN (9-20) mg/dL Glucose (75-100) mg/dL POC Glucose 52 L 49 L (70-105) Calcium (8.4-10.2) mg/dL AST (5-40) units/L ALT (7-56) units/L Alkaline Phosphatase (35-129) units/L Total Protein (6.3-8.2) g/dL Albumin (3.9-5) g/dL Vitamin B12 (211-911) pg/mL 03/16/17 03/16/17 03/16/17 Range/Units 04:59 04:59 06:39 Hgb (11.8-15.2) gm/dl Hct (35.5-45.6) % MCH (28-32) pg RDW (13.2-15.2) % Plt Count (140-440) K/mm3 BUN 50 H (9-20) mg/dL Glucose 47 L (75-100) mg/dL POC Glucose 40 L (70-105) Calcium 7.0 L (8.4-10.2) mg/dL AST 74 H (5-40) units/L ALT 83 H (7-56) units/L Alkaline Phosphatase 365 H (35-129) units/L Total Protein 5.1 L (6.3-8.2) g/dL Albumin 1.8 L (3.9-5) g/dL Vitamin B12 (211-911) pg/mL 03/16/17 03/16/17 Range/Units 11:20 12:53 Hgb (11.8-15.2) gm/dl Hct (35.5-45.6) % MCH (28-32) pg RDW (13.2-15.2) % Plt Count (140-440) K/mm3 BUN (9-20) mg/dL Glucose (75-100) mg/dL POC Glucose 44 L (70-105) Calcium (8.4-10.2) mg/dL AST (5-40) units/L ALT (7-56) units/L Alkaline Phosphatase (35-129) units/L Total Protein (6.3-8.2) g/dL Albumin (3.9-5) g/dL Vitamin B12 > 2000 H (211-911) pg/mL
[2017-03-17] MEDS: NOVOLOG SUB-Q SCH ×4 (01:13→23:32)
[2017-03-17] MEDS: SYNTHROID PO SCH ×2 (06:19)
[2017-03-17 06:34] LABS: BUN/Creatinine Ratio 34.28; Calcium 7.1 mg/dL (8.4-10.2); Chloride 104.7 mmol/L (98-107); Potassium 4.1 mmol/L (3.6-5.0)
[2017-03-17] MEDS: LOVENOX SUB-Q SCH (10:31)
--- NOTE | 2017-03-17 17:48 | Progress Note ---
Assessment and Plan Mr Dooley is a 81 yo AAM who presented with AMS, hypotension, and acute renal failure. Liver enzymes on admission were normal (on 03/04), but now showed new onset elevation in AST/ALT/alk phos. Acute renal failure probably secondary to vasomotor nephropathy and ATN -Avoid nephrotoxic medications , nephrology following Hypokalemia. -repleted Acute metabolic encephalopathy; -Multifactorial, mild improvement since admission, continue supportive care -Frequent neuro checks - CT head on admission did not show any acute change - MRI with no acute change - Could have underlying dementia, neurology recommended no further intervention Hypernatremia -Continue IV fluids closely monitor monitor electrolytes and adjust as needed Hypoglycemia -Secondary to poor oral intake, residual malnutrition, - continue tube feeding Transaminitis; improved -Ultrasound revealed gallbladder wall thickening and gallbladder wall polyps versus carcinoma -GI recommended to consult general surgery -MRCP pending Gram Negative staph Bacteremia. -positive in one of two bottles. Likely a contaminant, No fever or Leukocytosis. -repeat blood cx negative hypothyroidism continue Synthroid DVT prophylaxis with Lovenox Disposition: likely with hospice if no improvement in next 48 h. Family want DNR and no further lab work. Subjective Date of service: 03/17/17 Principal diagnosis: sepsis, [place] Interval history: Patient seen and examined. Medical records and medication list reviewed. No acute event overnight noted by the RN. pt tolerating tube feeding, no change in mental status Discussed plan of care at bedside with patient's family and CM. Objective - Exam Narrative Exam: GENERAL: well-developed AAM lying on bed appeared to be in no discomfort. HEENT: Normocephalic. Atraumatic. No conjunctival congestion or icterus. Patient has moist mucous membranes. dobhoff on place NECK: Supple. Trachea midline. CHEST/LUNGS: Clear to auscultated bilaterally, breathing nonlabored. No wheezes crackles or rhonchi. HEART/CARDIOVASCULAR: Regular in rate and rhythm. S1 and S2 positive. ABDOMEN: Abdomen is soft, nontender. Patient has normal bowel sounds. SKIN: There is no rash. Warm and dry. NEURO: No focal motor deficit. MUSCULOSKELETAL: No joint effusion or tenderness. EXTRIMITY: No edema, no cyanosis or clubbing. PSYCH: Cooperative. - Constitutional Vitals: Vital Signs - 12hr 03/17/17 03/17/17 03/17/17 08:35 12:31 16:00 Temperature 97.6 F Pulse Rate 60 Pulse Rate [ 77 Left Radial] Pulse Rate [ 83 Right Radial] Respiratory 20 20 Rate Blood Pressure 108/69 99/73 [Left Arm] O2 Sat by Pulse 98 93 96 Oximetry 03/17/17 17:30 Temperature Pulse Rate Pulse Rate [ 80 Left Radial] Pulse Rate [ Right Radial] Respiratory 20 Rate Blood Pressure 120/94 [Left Arm] O2 Sat by Pulse 96 Oximetry - Labs CBC & Chem 7: 03/16/17 04:59 03/17/17 05:49 Labs: Abnormal lab results 03/16/17 03/17/17 03/17/17 Range/Units 23:55 05:49 06:15 BUN 48 H (9-20) mg/dL Glucose 122 H (75-100) mg/dL POC Glucose 127 H 121 H (70-105) Calcium 7.1 L (8.4-10.2) mg/dL
[2017-03-17] MEDS: AMBIEN PO SCH (22:28)
[2017-03-18] MEDS: NOVOLOG SUB-Q SCH (05:40)
[2017-03-18] MEDS: SYNTHROID PO SCH ×2 (06:06)
[2017-03-18] MEDS: LOVENOX SUB-Q SCH (10:42)
[2017-03-18 15:20] LABS: BUN/Creatinine Ratio 35.71; Calcium 7.3 mg/dL (8.4-10.2); Chloride 106.5 mmol/L (98-107); Potassium 4.5 mmol/L (3.6-5.0)
--- NOTE | 2017-03-18 17:01 | Progress Note ---
Assessment and Plan Mr Dooley is a 81 yo AAM who presented with AMS, hypotension, and acute renal failure. Liver enzymes on admission were normal (on 03/04), but now showed new onset elevation in AST/ALT/alk phos. GI recommended MRCP but can't be completed b/o his mental status he could not cooperate with the tech. family now want DNR and hospice if no improvement of symptom with tube feeding. Acute renal failure probably secondary to vasomotor nephropathy and ATN -continue to Avoid nephrotoxic medications , nephrology following Hypokalemia. -repleted Acute metabolic encephalopathy; -Multifactorial, mild improvement since admission, continue supportive care -Frequent neuro checks - CT head on admission did not show any acute change - MRI with no acute change - Could have underlying dementia, neurology recommended no further intervention - family want a trial of exelon patch, discussed about potential side effects of the medication at bed side Hypernatremia -improved with IV fluid, now hetting free h20 with TF Hypoglycemia -Secondary to poor oral intake, residual malnutrition, - continue tube feeding Transaminitis; improved -Ultrasound revealed gallbladder wall thickening and gallbladder wall polyps versus carcinoma -GI recommended to consult general surgery -MRCP could not be done Gram Negative staph Bacteremia. -positive in one of two bottles. Likely a contaminant, No fever or Leukocytosis. -repeat blood cx negative hypothyroidism continue Synthroid DVT prophylaxis with Lovenox Disposition: likely with hospice if no improvement of mental status with TF. Family want DNR. Subjective Date of service: 03/18/17 Principal diagnosis: sepsis, [place] Interval history: Patient seen and examined. Medical records and medication list reviewed. No acute event overnight noted by the RN. pt tolerating tube feeding, no change in mental status Discussed plan of care at bedside with patient's family and CM. Objective - Exam Narrative Exam: GENERAL: well-developed AAM lying on bed appeared to be in no discomfort. HEENT: Normocephalic. Atraumatic. No conjunctival congestion or icterus. Patient has moist mucous membranes. dobhoff on place NECK: Supple. Trachea midline. CHEST/LUNGS: Clear to auscultated bilaterally, breathing nonlabored. No wheezes crackles or rhonchi. HEART/CARDIOVASCULAR: Regular in rate and rhythm. S1 and S2 positive. ABDOMEN: Abdomen is soft, nontender. Patient has normal bowel sounds. SKIN: There is no rash. Warm and dry. NEURO: No focal motor deficit. MUSCULOSKELETAL: No joint effusion or tenderness. EXTRIMITY: No edema, no cyanosis or clubbing. PSYCH: confused. - Constitutional Vitals: Vital Signs - 12hr 03/18/17 03/18/17 03/18/17 05:02 09:10 10:00 Temperature 98.2 F 97.3 F L Pulse Rate 72 Pulse Rate [ 80 Left Radial] Pulse Rate [ 74 Right Dorsalis Pedis] Respiratory 18 22 Rate Blood Pressure 121/68 103/53 [Left Arm] O2 Sat by Pulse 99 92 Oximetry - Labs CBC & Chem 7: 03/18/17 17:08 03/18/17 14:41 Labs: Abnormal lab results 03/16/17 03/17/17 03/17/17 Range/Units 04:59 17:27 22:44 BUN (9-20) mg/dL Glucose (75-100) mg/dL POC Glucose 129 H 187 H (70-105) Calcium (8.4-10.2) mg/dL Ionized Calcium 4.4 L (4.8-5.6) mg/dL 03/18/17 03/18/17 03/18/17 Range/Units 05:34 14:14 14:41 BUN 50 H (9-20) mg/dL Glucose 152 H (75-100) mg/dL POC Glucose 121 H 160 H (70-105) Calcium 7.3 L (8.4-10.2) mg/dL Ionized Calcium (4.8-5.6) mg/dL
[2017-03-18 17:27] LABS: Hematocrit 27.6 % (35.5-45.6); Mean Corpuscular HGB Conc 33 % (32-34); Mean Corpuscular Hemoglobin 27 pg (28-32); Mean Corpuscular Volume 83 fl (84-94); Red Blood Count 3.33 M/mm3 (3.65-5.03)
[2017-03-18 17:51] LABS: Red Cell Distribution Width 22.7 % (13.2-15.2)
[2017-03-18 18:31] LABS: Platelet Count 37 K/mm3 (140-440)
[2017-03-18 18:32] LABS: Mean Platelet Volume 10.2 fl (6-12)
[2017-03-18] MEDS: AMBIEN PO SCH (23:37)
[2017-03-19] MEDS: NOVOLOG SUB-Q SCH (00:30)
[2017-03-19] MEDS: SYNTHROID PO SCH ×2 (05:54→05:55)
[2017-03-19] MEDS ORDERED: MORPHINE IV PRN (12:40)
[2017-03-19] MEDS: LOVENOX SUB-Q SCH (13:00)
[2017-03-19] MEDS: EXELON TD SCH (13:16)
--- NOTE | 2017-03-19 15:25 | Progress Note ---
Assessment and Plan Mr Dooley is a 81 yo AAM who presented with AMS, hypotension, and acute renal failure. Liver enzymes on admission were normal (on 03/04), but now showed new onset elevation in AST/ALT/alk phos. GI recommended MRCP but can't be completed b/o his mental status he could not cooperate with the tech. family now want DNR and hospice if no improvement of symptom with tube feeding. he pulled out his tube today, family does not want any further attempt of tube feeding short or custodial, Acute renal failure probably secondary to vasomotor nephropathy and ATN -continue to Avoid nephrotoxic medications , nephrology following Hypokalemia. -repleted Acute metabolic encephalopathy; -Multifactorial, mild improvement since admission, continue supportive care -Frequent neuro checks - CT head on admission did not show any acute change - MRI with no acute change - Could have underlying dementia, neurology recommended no further intervention - family wanted a trial of exelon patch, discussed about potential side effects of the medication at bed side Hypernatremia -improved with IV fluid, was getting free h20 with TF Hypoglycemia -Secondary to poor oral intake, residual malnutrition, - improved with tube feeding Transaminitis; improved -Ultrasound revealed gallbladder wall thickening and gallbladder wall polyps versus carcinoma -GI recommended to consult general surgery and , MRCP -But MRCP could not be done Gram Negative staph Bacteremia. -positive in one of two bottles. Likely a contaminant, No fever or Leukocytosis. -repeat blood cx negative hypothyroidism continue Synthroid DVT prophylaxis with Lovenox Disposition: with hospice Subjective Date of service: 03/19/17 Principal diagnosis: sepsis, [place] Interval history: Patient seen and examined. Medical records and medication list reviewed. he pulled out his NG tube today no change in mental status Discussed plan of care at bedside with patient's family and they do not want anymore Tube feeding Objective - Exam Narrative Exam: GENERAL: well-developed AAM lying on bed appeared to be in no discomfort. HEENT: Normocephalic. Atraumatic. No conjunctival congestion or icterus. Patient has moist mucous membranes. NECK: Supple. Trachea midline. CHEST/LUNGS: Clear to auscultated bilaterally, breathing nonlabored. No wheezes crackles or rhonchi. HEART/CARDIOVASCULAR: Regular in rate and rhythm. S1 and S2 positive. ABDOMEN: Abdomen is soft, nontender. Patient has normal bowel sounds. SKIN: There is no rash. Warm and dry. NEURO: No focal motor deficit. MUSCULOSKELETAL: No joint effusion or tenderness. EXTRIMITY: No edema, no cyanosis or clubbing. PSYCH: confused. - Constitutional Vitals: Vital Signs - 12hr 03/19/17 03/19/17 03/19/17 05:00 07:50 10:00 Temperature 97.3 F L 97.3 F L Pulse Rate [ 68 Apical] Pulse Rate [ 70 52 L Left Radial] Respiratory 16 20 20 Rate Blood Pressure 96/51 105/52 [Left Arm] O2 Sat by Pulse 95 98 98 Oximetry 03/19/17 13:10 Temperature Pulse Rate [ Apical] Pulse Rate [ 78 Left Radial] Respiratory 20 Rate Blood Pressure 101/55 [Left Arm] O2 Sat by Pulse Oximetry - Labs CBC & Chem 7: 03/18/17 17:08 03/18/17 14:41 Labs: Abnormal lab results 03/18/17 03/19/17 Range/Units 17:08 13:11 RBC 3.33 L (3.65-5.03) M/mm3 Hgb 9.0 L (11.8-15.2) gm/dl Hct 27.6 L D (35.5-45.6) % MCV 83 L (84-94) fl MCH 27 L (28-32) pg RDW 22.7 H (13.2-15.2) % Plt Count 37 L (140-440) K/mm3 POC Glucose 247 H (70-105)
[2017-03-19] MEDS: AMBIEN PO SCH (22:09)
[2017-03-20] MEDS: SYNTHROID PO SCH ×2 (06:10)
--- NOTE | 2017-03-20 08:17 | Discharge Summary ---
Providers - Providers Date of Admission: 03/04/17 18:10 Date of discharge: 03/20/17 Attending physician: KELLI AGUILAR 03/05/17 07:26 Consult to Dietitian/Nutrition [CONS] Routine Physician Instructions: Consult for tube feed Reason For Exam: POOR INTAKE Reason for Consult: John score 15 03/05/17 11:54 Consult to Physician [CONS] Routine Consulting Provider: GAVINO SANZ Reason For Exam: VITALY Place consult to:: Dr. Sanz Notified:: Marium GO Was contact made?: Yes If yes, spoke with:: Dr. Sanz Time called:: 12:25 03/07/17 14:55 Physical Therapy Evaluation and Treat [CONS] Routine Comment: skilled needs Reason For Exam: eval & treat 03/07/17 14:56 Occupational Therapy Evaluate and Treat [CONS] Routine Comment: skill needs Reason For Exam: eval & treat 03/09/17 17:54 Consult to Wound/ET Nurse [CONS] Routine Reason For Exam: wound eval 03/12/17 10:42 Consult to Physician [CONS] Routine Consulting Provider: KRISHAN OLVERA Reason For Exam: transaminitis/thick GB wall/polyps/? carcinoma Place consult to:: Gi Notified:: faustino service Phone number called:: [phone] Was contact made?: Yes If yes, spoke with:: jemma Time called:: 11:13 03/15/17 11:56 Consult to Physician [CONS] Routine Consulting Provider: ADITYA LIVE Reason For Exam: gall bladder polyp Place consult to:: center consultant Notified:: OFFICE Phone number called:: [phone] Was contact made?: Yes If yes, spoke with:: MARLENA Time called:: 12:15 03/15/17 12:39 Consult to Physician [CONS] Routine Consulting Provider: STEVEN METZGER Reason For Exam: encephalopathy Place consult to:: neurology Notified:: rob Phone number called:: [phone] Was contact made?: No Time called:: 14:08 Consult to Physician [CONS] Routine Consulting Provider: SARA BERNAL Reason For Exam: gall bladder polyp Place consult to:: center consultant general surgeon Notified:: tyson 03/15/17 13:10 Midline [Consult to PICC Line RN] [CONS] Routine Reason For Exam: iv access Type Line:: Midline 03/16/17 01:17 Consult to Dietitian/Nutrition [CONS] Routine Physician Instructions: Consult for tube feed Reason For Exam: POOR INTAKE Reason for Consult: Poor oral intake 03/17/17 17:20 Consult to Case Management [CONS] Routine Services Needed at Discharge: Other Notified:: Case management Comment:: hospice Primary care physician: LABEL PINKER Hospitalization Condition: Fair Disposition: DC TO HOSPICE (HOME) Time spent for discharge: 32 minutes Core Measure Documentation - Palliative Care Palliative Care/ Comfort Measures: Hospice Care - Core Measures Any of the following diagnoses?: history only Exam - Physical Exam Narrative exam: GENERAL: well-developed AAM lying on bed appeared to be in no discomfort. HEENT: Normocephalic. Atraumatic. No conjunctival congestion or icterus. Patient has moist mucous membranes. NECK: Supple. Trachea midline. CHEST/LUNGS: Clear to auscultated bilaterally, breathing nonlabored. No wheezes crackles or rhonchi. HEART/CARDIOVASCULAR: Regular in rate and rhythm. S1 and S2 positive. ABDOMEN: Abdomen is soft, nontender. Patient has normal bowel sounds. SKIN: There is no rash. Warm and dry. NEURO: No focal motor deficit. MUSCULOSKELETAL: No joint effusion or tenderness. EXTRIMITY: No edema, no cyanosis or clubbing. PSYCH: confused. - Constitutional Vitals: Temp Pulse Resp BP Pulse Ox 97.6 F 55 L 18 121/68 96 03/20/17 05:31 03/20/17 05:31 03/20/17 05:31 03/20/17 05:31 03/20/17 05:31 Plan Activity: other (bedrest) Diet: per dietitian instruction Follow up with: EDIN GRAY MD [Primary Care Provider] - 3-5 Days
[2017-03-20] MEDS: EXELON TD SCH (10:22)
[2017-03-20] MEDS: LOVENOX SUB-Q SCH (10:22)
[2017-03-20] MEDS ORDERED: SODIUM BICARBONATE FEEDTUBE PRN ×2 (12:21→12:33)
[2017-03-20] MEDS ORDERED: PANCREAZE DR 10,500 UNIT FEEDTUBE PRN (12:21)
[2017-03-20] MEDS ORDERED: SIMPLE SYRUP FEEDTUBE PRN ×2 (12:21)
--- NOTE | 2017-03-20 12:28 | Progress Note ---
Assessment and Plan Mr Dooley is a 81 yo AAM who presented with AMS, hypotension, and acute renal failure. Liver enzymes on admission were normal (on 03/04), but now showed new onset elevation in AST/ALT/alk phos. GI recommended MRCP but can't be completed b/o his mental status he could not cooperate with the tech. family now want DNR and hospice if no improvement of symptom with tube feeding. He pulled out his tube on 03/18, family did not want any further attempt of tube feeding short or fci then, but they change their mind and eant to consider tube feeding. Acute renal failure probably secondary to vasomotor nephropathy and ATN -continue to Avoid nephrotoxic medications , nephrology following Hypokalemia. -repleted Acute metabolic encephalopathy; -Multifactorial, no improvement since admission, continue supportive care - Frequent neuro checks - CT head on admission did not show any acute change - MRI with no acute change - Could have underlying dementia, neurology recommended no further intervention - family wanted a trial of exelon patch, discussed about potential side effects of the medication at bed side Poor oral intake - does not want to take anything by mouth - family refused tube feeding before, but now they want to try it - will place dobhoff and initiate tube feeding - Consult GI for PEG placement Hypernatremia -improved with IV fluid, Hypoglycemia -Secondary to poor oral intake, residual malnutrition, - was improved with tube feeding Transaminitis; improved -Ultrasound revealed gallbladder wall thickening and gallbladder wall polyps versus carcinoma -GI recommended to consult general surgery and , MRCP -But MRCP could not be done Gram Negative staph Bacteremia. -positive in one of two bottles. Likely a contaminant, No fever or Leukocytosis. -repeat blood cx negative hypothyroidism continue Synthroid DVT prophylaxis with Lovenox Disposition: with hospice Subjective Date of service: 03/20/17 Principal diagnosis: sepsis, [place] Interval history: Patient seen and examined. Medical records and medication list reviewed. he pulled out his NG tube on 03/18/17, Discussed plan of care at bedside with patient's family and they did not want anymore Tube feeding but today daughter at bedside told me she wants to try tube feeding again, she wants give him another chance to see if that improves his mental status. Objective - Exam Narrative Exam: GENERAL: well-developed AAM lying on bed appeared to be in no discomfort. HEENT: Normocephalic. Atraumatic. No conjunctival congestion or icterus. Patient has moist mucous membranes. NECK: Supple. Trachea midline. CHEST/LUNGS: Clear to auscultated bilaterally, breathing nonlabored. No wheezes crackles or rhonchi. HEART/CARDIOVASCULAR: Regular in rate and rhythm. S1 and S2 positive. ABDOMEN: Abdomen is soft, nontender. Patient has normal bowel sounds. SKIN: There is no rash. Warm and dry. NEURO: No focal motor deficit. MUSCULOSKELETAL: No joint effusion or tenderness. EXTRIMITY: No edema, no cyanosis or clubbing. PSYCH: confused. - Constitutional Vitals: Vital Signs - 12hr 03/20/17 03/20/17 03/20/17 00:24 05:31 09:38 Temperature 98.2 F 97.6 F 97.0 F L Pulse Rate [ 94 H 55 L 70 Right Dorsalis Pedis] Respiratory 18 18 18 Rate Blood Pressure 114/68 121/68 108/53 [Left Arm] O2 Sat by Pulse 94 96 100 Oximetry - Labs CBC & Chem 7: 03/18/17 17:08 03/18/17 14:41 Labs: Abnormal lab results 03/19/17 03/19/17 Range/Units 13:11 18:36 POC Glucose 247 H 190 H (70-105)
--- NOTE | 2017-03-20 15:00 | XRay Report ---
Flatplate of abdomen: History: Dobbhoff placement. Findings: Tip of Dobbhoff feeding tube is noted in the stomach. No bowel distention. Stool in colon. Impression: Tip of Dobbhoff feeding tube is noted in the stomach.
[2017-03-21 05:54] LABS: Basophils % (Auto) 0.1 % (0.0-1.8); Hematocrit 25.2 % (35.5-45.6); Hemoglobin 8.2 gm/dl (11.8-15.2); Mean Corpuscular HGB Conc 33 % (32-34); Mean Corpuscular Hemoglobin 27 pg (28-32); Mean Corpuscular Volume 82 fl (84-94); Red Blood Count 3.06 M/mm3 (3.65-5.03); White Blood Count 8.6 K/mm3 (4.5-11.0)
[2017-03-21 06:02] LABS: Red Cell Distribution Width 22.8 % (13.2-15.2)
[2017-03-21 06:15] LABS: Anion Gap 17 mmol/L; BUN/Creatinine Ratio 39.16; Blood Urea Nitrogen 47 mg/dL (9-20); Calcium 7.8 mg/dL (8.4-10.2); Carbon Dioxide 24 mmol/L (22-30); Chloride 107.1 mmol/L (98-107); Glucose 89 mg/dL (75-100); Sodium 144 mmol/L (137-145)
[2017-03-21 06:51] LABS: Platelet Count 39 K/mm3 (140-440)
[2017-03-21] MEDS: SYNTHROID PO SCH ×2 (07:26)
[2017-03-21] MEDS: EXELON TD SCH (09:06)
[2017-03-21] MEDS: LOVENOX SUB-Q SCH (09:06)
--- NOTE | 2017-03-21 14:30 | Gastroenterology Progress Note ---
Assessment and Plan 1. Poor PO intake -Patient is not taking in any PO fluid or food -Family reqeust PEG placement for nutrition, then patient is to be discharged to hospice. -Platelets are 39K, will need to be over 50K for procedure. -Check CT scan to evaluate liver ( partially seen on US) -Check coags -Patient had dobhoff placed x 2, and pulled it out. 2. ARF 3. Dementia 4. Elevated LFTS- improved, unable to obtain MRI as patient would no cooperate. Subjective Date of service: 03/21/17 Principal diagnosis: sepsis, [place] Interval history: Re-consulted for PEG evaluation Objective - Constitutional Vitals: Temp Pulse Resp BP Pulse Ox 97.4 F L 72 20 125/62 98 03/21/17 07:40 03/21/17 12:40 03/21/17 12:40 03/21/17 12:40 03/21/17 12:40 General appearance: no acute distress, other (nonverbal, opens eyes) - EENT Eyes: EOM intact - Neck Neck: supple - Respiratory Respiratory: bilateral: rhonchi - Cardiovascular Rhythm: regular Heart Sounds: Present: S1 & S2 - Gastrointestinal General gastrointestinal: Present: soft, non-tender, normal bowel sounds - Labs CBC & Chem 7: 03/21/17 05:20 03/21/17 05:20 Labs: Laboratory Results - last 24 hr 03/20/17 03/21/17 03/21/17 18:46 01:56 05:20 WBC 8.6 RBC 3.06 L Hgb 8.2 L Hct 25.2 L MCV 82 L MCH 27 L MCHC 33 RDW 22.8 H Plt Count 39 L Lymph % (Auto) 12.8 L Branch % (Auto) 3.3 Eos % (Auto) 0.0 Baso % (Auto) 0.1 Lymph # 1.1 L Branch # 0.3 Eos # 0.0 Baso # 0.0 Seg Neutrophils % 83.8 H Seg Neutrophils # 7.2 Sodium Potassium Chloride Carbon Dioxide Anion Gap BUN Creatinine Estimated GFR BUN/Creatinine Ratio Glucose POC Glucose 106 H 104 Calcium 03/21/17 05:20 WBC RBC Hgb Hct MCV MCH MCHC RDW Plt Count Lymph % (Auto) Branch % (Auto) Eos % (Auto) Baso % (Auto) Lymph # Branch # Eos # Baso # Seg Neutrophils % Seg Neutrophils # Sodium 144 Potassium 4.0 Chloride 107.1 H Carbon Dioxide 24 Anion Gap 17 BUN 47 H Creatinine 1.2 Estimated GFR > 60 BUN/Creatinine Ratio 39.16 Glucose 89 POC Glucose Calcium 7.8 L
[2017-03-21 16:10] LABS: INR 1.06 (0.87-1.13)
[2017-03-21] MEDS ORDERED: ATIVAN IV ONE (18:00)
--- NOTE | 2017-03-21 20:13 | Progress Note ---
Assessment and Plan Assessment and plan: 81 yo male with CAD s/p CABG, h/o gross hematuria, likely dementia, brought to the hospital for altered mental status and found to be hypotensive, in acute renal failure, with hypernatremia 1. Acute renal failure Likely secondary to vasomotor nephropathy due to dehydration versus ATN from hypotension Renal ultrasound with no obstruction Serologies negative Improved significantly with IV fluids Avoiding nephrotoxins Medications renally dosed Nephrology following 2. Hypernatremia Likely secondary to dehydration due to poor intake Resolved with IV fluids 3. Hypokalemia Potassium replaced Plan normal limits now Continue to monitor 4. Metabolic acidosis Due to acute renal failure Resolved 5. Acute toxic metabolic encephalopathy Multifactorial - with anemia/electrolytes abnormalities/hypoglycemia superimposed on baseline dementia CT head and brain MRI with no acute abnormalities; showing atrophy Neurology consulted and recommended no further intervention Underlying conditions treated and resolved, but no improvement in mental status Exelon patch trial per family request 6. Possible sepsis 1/2 blood cultures positive for gram-negative staph which is most likely a contaminant (no fever or leukocytosis) Repeat blood cultures negative Antibiotics discontinued 7. Elevated LFTs AST/ALT slightly elevated, but alkaline phosphatase elevated GI following US raised suspicion of GB polyp versus mass CT abdomen with IV contrast obtained and showed no liver lesions and no dilatation of billiary ducts Will repeat LFTs AP possible elevated due to prostate cancer 8. Poor by mouth intake Likely secondary to his declined mental status (encephalopathy superimposed on dementia)/malignancy Family requested PEG placement; GI consulted but procedure unable to be performed due to thrombocytopenia 9. Severe malnutrition Due to poor intake/malignancy Plan PPN or TPN until PEG placement 10. Hypoglycemia Not taking po and performed NG tube Pending PEG placement depending on platelets Give IV fluids (D5 NS) 11. Hypothyroidism TSH elevated, but FT4 within normal limits Synthroid dose adjusted 12. History of gross hematuria See discussion below 13. Likely prostate cancer History of gross hematuria in Oct 2016 CT abd/pelvis at that time showing moderately enlarged prostate with suggestion of invasion into the urinary bladder Advised to follow-up with urology and also with his PCP at [facility] Will discuss with family 14. Anemia Likely multifactorial - blood loss due to hematuria/nutritional deficiencies/ renal failure Hemoglobin low, but stable With her H&H 15. Thrombocytopenia Sepsis ruled out Possible secondary to prostate cancer Monitor and consult oncology 16. DVT/GI prophylaxis 17. DNR 18. Dispo Transfer to hospice after PEG placement History Interval history: pulled NGT again, unable to take any po; family wants PEG, but GI unable to do it due to thrombocytopenia Hospitalist Physical - Constitutional Vitals: Temp Pulse Resp BP Pulse Ox 97.8 F 64 18 119/56 97 03/21/17 20:00 03/21/17 20:00 03/21/17 20:00 03/21/17 20:00 03/21/17 20:00 General appearance: Present: no acute distress, obese - EENT Eyes: Present: PERRL, EOM intact. Absent: scleral icterus, conjunctival injection - Neck Neck: Present: supple, normal ROM. Absent: masses or JVD - Respiratory Respiratory effort: normal Respiratory: bilateral: CTA, negative: rhonchi, wheezing - Cardiovascular Rhythm: regular Heart Sounds: Present: S1 & S2. Absent: systolic murmur - Extremities Extremities: no ischemia - Abdominal General gastrointestinal: soft, non-tender, non-distended, normal bowel sounds - Integumentary Integumentary: Present: warm, dry. Absent: jaundice, rash - Psychiatric Psychiatric: no intact judgment & insight, no memory intact, other (confused) - Neurologic Neurologic: moves all extremities Results - Labs CBC & Chem 7: 03/22/17 04:38 03/22/17 09:06 Labs: Laboratory Last Values WBC 8.6 K/mm3 (4.5-11.0) 03/21/17 05:20 RBC 3.06 M/mm3 (3.65-5.03) L 03/21/17 05:20 Hgb 8.2 gm/dl (11.8-15.2) L 03/21/17 05:20 Hct 25.2 % (35.5-45.6) L 03/21/17 05:20 MCV 82 fl (84-94) L 03/21/17 05:20 MCH 27 pg (28-32) L 03/21/17 05:20 MCHC 33 % (32-34) 03/21/17 05:20 RDW 22.8 % (13.2-15.2) H 03/21/17 05:20 Plt Count 39 K/mm3 (140-440) L 03/21/17 05:20 Lymph % (Auto) 12.8 % (13.4-35.0) L 03/21/17 05:20 [place] % (Auto) 3.3 % (0.0-7.3) 03/21/17 05:20 Eos % (Auto) 0.0 % (0.0-4.3) 03/21/17 05:20 Baso % (Auto) 0.1 % (0.0-1.8) 03/21/17 05:20 Lymph # 1.1 K/mm3 (1.2-5.4) L 03/21/17 05:20 [place] # 0.3 K/mm3 (0.0-0.8) 03/21/17 05:20 Eos # 0.0 K/mm3 (0.0-0.4) 03/21/17 05:20 Baso # 0.0 K/mm3 (0.0-0.1) 03/21/17 05:20 Add Manual Diff Complete 03/12/17 07:08 Total Counted 100 03/12/17 07:08 Seg Neutrophils % 83.8 % (40.0-70.0) H 03/21/17 05:20 Seg Neuts % (Manual) 56.0 % (40.0-70.0) 03/12/17 07:08 Band Neutrophils % 0 % 03/12/17 07:08 Lymphocytes % (Manual) 36.0 % (13.4-35.0) H 03/12/17 07:08 Reactive Lymphs % (Man) 2.0 % 03/12/17 07:08 Monocytes % (Manual) 6.0 % (0.0-7.3) 03/12/17 07:08 Eosinophils % (Manual) 0 % (0.0-4.3) 03/12/17 07:08 Basophils % (Manual) 0 % (0.0-1.8) 03/12/17 07:08 Metamyelocytes % 0 % 03/12/17 07:08 Myelocytes % 0 % 03/12/17 07:08 Promyelocytes % 0 % 03/12/17 07:08 Blast Cells % 0 % 03/12/17 07:08 Nucleated RBC % 1.0 % (0.0-0.9) H 03/12/17 07:08 Seg Neutrophils # 7.2 K/mm3 (1.8-7.7) 03/21/17 05:20 Seg Neutrophils # Man 2.3 K/mm3 (1.8-7.7) 03/12/17 07:08 Band Neutrophils # 0.0 K/mm3 03/12/17 07:08 Lymphocytes # (Manual) 1.5 K/mm3 (1.2-5.4) 03/12/17 07:08 Abs React Lymphs (Man) 0.1 K/mm3 03/12/17 07:08 Monocytes # (Manual) 0.2 K/mm3 (0.0-0.8) 03/12/17 07:08 Eosinophils # (Manual) 0.0 K/mm3 (0.0-0.4) 03/12/17 07:08 Basophils # (Manual) 0.0 K/mm3 (0.0-0.1) 03/12/17 07:08 Metamyelocytes # 0.0 K/mm3 03/12/17 07:08 Myelocytes # 0.0 K/mm3 03/12/17 07:08 Promyelocytes # 0.0 K/mm3 03/12/17 07:08 Blast Cells # 0.0 K/mm3 03/12/17 07:08 WBC Morphology Not Reportable 03/12/17 07:08 Hypersegmented Neuts Not Reportable 03/12/17 07:08 Hyposegmented Neuts Not Reportable 03/12/17 07:08 Hypogranular Neuts Not Reportable 03/12/17 07:08 Smudge Cells Not Reportable 03/12/17 07:08 Toxic Granulation Not Reportable 03/12/17 07:08 Toxic Vacuolation Not Reportable 03/12/17 07:08 Dohle Bodies Not Reportable 03/12/17 07:08 Pelger-Huet Anomaly Not Reportable 03/12/17 07:08 [place] Rods Not Reportable 03/12/17 07:08 Platelet Estimate Cons 03/12/17 07:08 Clumped Platelets Not Reportable 03/12/17 07:08 Plt Clumps, EDTA Not Reportable 03/12/17 07:08 Large Platelets Few 03/12/17 07:08 Giant Platelets Rare 03/12/17 07:08 Platelet Satelliting Not Reportable 03/12/17 07:08 Plt Morphology Comment Not Reportable 03/12/17 07:08 RBC Morphology Not Reportable 03/12/17 07:08 Dimorphic RBCs Not Reportable 03/12/17 07:08 Polychromasia Not Reportable 03/12/17 07:08 Hypochromasia Not Reportable 03/12/17 07:08 Poikilocytosis 2+ 03/12/17 07:08 Anisocytosis 1+ 03/12/17 07:08 Microcytosis Not Reportable 03/12/17 07:08 Macrocytosis Not Reportable 03/12/17 07:08 Spherocytes Not Reportable 03/12/17 07:08 Pappenheimer Bodies Not Reportable 03/12/17 07:08 Sickle Cells Not Reportable 03/12/17 07:08 Target Cells Not Reportable 03/12/17 07:08 Tear Drop Cells Not Reportable 03/12/17 07:08 Ovalocytes Not Reportable 03/12/17 07:08 Helmet Cells Not Reportable 03/12/17 07:08 [place] Bodies Not Reportable 03/12/17 07:08 [place] Rings Not Reportable 03/12/17 07:08 Buster Cells 2+ 03/12/17 07:08 Bite Cells Not Reportable 03/12/17 07:08 Crenated Cell Not Reportable 03/12/17 07:08 Elliptocytes Not Reportable 03/12/17 07:08 Acanthocytes (Spur) Not Reportable 03/12/17 07:08 Rouleaux Not Reportable 03/12/17 07:08 Hemoglobin C Crystals Not Reportable 03/12/17 07:08 Schistocytes Not Reportable 03/12/17 07:08 Malaria parasites Not Reportable 03/12/17 07:08 [place] Bodies Not Reportable 03/12/17 07:08 Hem Pathologist Commnt No 03/12/17 07:08 PT 13.7 Sec. (12.2-14.9) 03/21/17 15:07 INR 1.06 (0.87-1.13) 03/21/17 15:07 POC ABG pH 7.449 (7.35-7.45) 03/04/17 16:45 POC ABG pCO2 48.5 (35-45) H 03/04/17 16:45 POC ABG pO2 79 (80-105) L 03/04/17 16:45 POC ABG HCO3 33.7 03/04/17 16:45 POC ABG Total CO2 35 03/04/17 16:45 POC ABG O2 Sat 96 03/04/17 16:45 POC ABG Base Excess 10 03/04/17 16:45 FiO2 21 % 03/04/17 16:45 Sodium 144 mmol/L (137-145) 03/21/17 05:20 Potassium 4.0 mmol/L (3.6-5.0) 03/21/17 05:20 Chloride 107.1 mmol/L (98-107) H 03/21/17 05:20 Carbon Dioxide 24 mmol/L (22-30) 03/21/17 05:20 Anion Gap 17 mmol/L 03/21/17 05:20 BUN 47 mg/dL (9-20) H 03/21/17 05:20 Creatinine 1.2 mg/dL (0.8-1.5) 03/21/17 05:20 Estimated GFR > 60 ml/min 03/21/17 05:20 BUN/Creatinine Ratio 39.16 % 03/21/17 05:20 Glucose 89 mg/dL (75-100) 03/21/17 05:20 POC Glucose 62 (70-105) L 03/21/17 17:28 Lactic Acid 1.40 mmol/L (0.7-2.0) 03/04/17 20:41 Calcium 7.8 mg/dL (8.4-10.2) L 03/21/17 05:20 Ionized Calcium 4.4 mg/dL (4.8-5.6) L 03/16/17 04:59 Magnesium 2.60 mg/dL (1.7-2.3) H 03/04/17 16:40 Total Bilirubin 0.40 mg/dL (0.1-1.2) 03/16/17 04:59 Direct Bilirubin < 0.2 mg/dL (0-0.2) 03/16/17 04:59 Indirect Bilirubin 0.2 mg/dL 03/16/17 04:59 AST 74 units/L (5-40) H 03/16/17 04:59 ALT 83 units/L (7-56) H 03/16/17 04:59 Alkaline Phosphatase 365 units/L (35-129) H 03/16/17 04:59 Ammonia 17.0 umol/L (25-60) L 03/13/17 05:19 Total Creatine Kinase 420 units/L (55-170) H 03/04/17 16:40 Serum Total Protein 5.7 g/dL (6.1-8.1) L 03/06/17 10:30 Total Protein 5.1 g/dL (6.3-8.2) L 03/16/17 04:59 Albumin 1.8 g/dL (3.9-5) L 03/16/17 04:59 Albumin/Globulin Ratio 0.5 % 03/16/17 04:59 Fbvaa-2-Vogxftluy 0.4 g/dL (0.2-0.3) H 03/06/17 10:30 Mqiqy-6-Ijqbgyztc 0.9 g/dL (0.5-0.9) 03/06/17 10:30 Beta Globulins 0.6 g/dL (0.2-0.5) H 03/06/17 10:30 Gamma Globulins 1.2 g/dL (0.8-1.7) 03/06/17 10:30 Abnorm Protein Band 1 see below 03/06/17 10:30 PEP Interpretation see below H 03/06/17 10:30 Vitamin B12 > 2000 pg/mL (211-911) H 03/16/17 11:20 TSH 10.230 mlU/mL (0.270-4.200) H 03/04/17 16:40 Free T4 0.89 ng/dL (0.76-1.46) 03/04/17 20:41 Urine Color [place] (Yellow) 03/04/17 15:00 Urine Turbidity Clear (Clear) 03/04/17 15:00 Urine pH 5.0 (5.0-7.0) 03/04/17 15:00 Ur Specific [place] 1.017 (1.003-1.030) 03/04/17 15:00 Urine Protein <15 mg/dl mg/dL (Negative) 03/04/17 15:00 Urine Glucose (UA) Neg mg/dL (Negative) 03/04/17 15:00 Urine Ketones Neg mg/dL (Negative) 03/04/17 15:00 Urine Blood Sm (Negative) 03/04/17 15:00 Urine Nitrite Neg (Negative) 03/04/17 15:00 Urine Bilirubin Neg (Negative) 03/04/17 15:00 Urine Urobilinogen < 2.0 mg/dL (<2.0) 03/04/17 15:00 Ur Leukocyte Esterase Neg (Negative) 03/04/17 15:00 Urine WBC (Auto) < 1.0 /HPF (0.0-6.0) 03/04/17 15:00 Urine RBC (Auto) < 1.0 /HPF (0.0-6.0) 03/04/17 15:00 U Epithel Cells (Auto) < 1.0 /HPF (0-13.0) 03/04/17 15:00 Urine Osmolality 351 Mosm/kg 03/05/17 14:08 Salicylates < 0.3 mg/dL (2.8-20.0) L 03/04/17 16:40 Urine Opiates Screen Presumptive negative 03/04/17 15:00 Urine Methadone Screen Presumptive negative 03/04/17 15:00 Acetaminophen < 15.0 ug/mL (10.0-30.0) 03/04/17 16:40 Ur Barbiturates Screen Presumptive negative 03/04/17 15:00 Ur Phencyclidine Scrn Presumptive negative 03/04/17 15:00 Ur Amphetamines Screen Presumptive negative 03/04/17 15:00 U Benzodiazepines Scrn Presumptive negative 03/04/17 15:00 Urine Cocaine Screen Presumptive negative 03/04/17 15:00 U Marijuana (THC) Screen Presumptive negative 03/04/17 15:00 Drugs of Abuse Note Disclamer 03/04/17 15:00 Plasma/Serum Alcohol < 0.01 gm% (0-0.07) 03/04/17 16:40 TIFFANY Screen Negative (Negative) 03/05/17 14:08 Proteinase 3 (PR3) Ab <1.0 AI (<1.0) 03/05/17 14:08 Myeloperoxidase Ab <1.0 AI (<1.0) 03/05/17 14:08 Double Strand DNA Ab <1 IU/mL (<=4) 03/05/17 14:08 Complement C3 65 mg/dL (90-180) L 03/05/17 14:08 Complement C4 34 mg/dL (16-47) 03/05/17 14:08 Hepatitis A IgM Ab Non-reactive (NonReactive) 03/05/17 07:08 Hep Bs Antigen Non-reactive (Negative) 03/05/17 07:08 Hep B Core IgM Ab Non-reactive (NonReactive) 03/05/17 07:08 Hepatitis C Antibody Non-reactive (NonReactive) 03/05/17 07:08 - Imaging and Cardiology EKG: image reviewed Chest x-ray: image reviewed Abdominal x-ray: image reviewed CT Scan - head: report reviewed MRI - head: report reviewed
[2017-03-21] MEDS: AMBIEN PO SCH (22:33)
--- NOTE | 2017-03-22 03:42 | Cat Scan Report ---
FINAL REPORT PROCEDURE: CT ABDOMEN PELVIS WO CON TECHNIQUE: Computerized axial tomography of the abdomen and pelvis was performed without intravenous contrast. This study is performed without intravascular contrast material and its sensitivity for abdominal and pelvic pathology, including neoplasms, inflammation, abscess, free fluid, thrombosis, arterial dissection and infarction, is reduced compared with a contrast enhanced study. HISTORY: evaluate liver COMPARISON: 11/07/2016 FINDINGS: Visualized lower thorax: Mild atelectasis in the right lower lung.. Liver: Liver size is normal. No dilatation of the biliary ductal system.. Spleen: Normal size and attenuation. Gallbladder and biliary system: The gallbladder is distended. No stones are identified.. Pancreas: Normal. Adrenals: Normal. Kidneys: Normal. GI tract: No obstruction is seen. No ileus or enteritis. The cecum, appendix and colon are normal. Moderate fecal debris throughout colon.. Lymph nodes and mesentery: Normal. Vasculature: Moderate atherosclerosis of the aorta and branching vessels.. Bladder: The urinary bladder has a Quinn catheter within it. There is some thickening of the bladder wall.. Reproductive organs: Normal. Peritoneum: No free fluid. Musculoskeletal structures: There is diffuse anasarca of the soft tissues.. Other: None. IMPRESSION: The liver size is normal. There is distension of the gallbladder lumen. No stones are noted. No dilatation of the biliary ductal system. No evidence of intestinal or urinary tract obstruction. Diffuse soft tissue anasarca is noted..
[2017-03-22 05:49] LABS: Basophils % (Auto) 0.1 % (0.0-1.8); Hematocrit 24.8 % (35.5-45.6); Hemoglobin 8.2 gm/dl (11.8-15.2); Mean Corpuscular HGB Conc 33 % (32-34); Mean Corpuscular Hemoglobin 27 pg (28-32); Mean Corpuscular Volume 83 fl (84-94); White Blood Count 7.3 K/mm3 (4.5-11.0)
[2017-03-22 05:55] LABS: Platelet Count 41 K/mm3 (140-440); Red Cell Distribution Width 23.1 % (13.2-15.2)
[2017-03-22] MEDS: SYNTHROID PO SCH ×2 (06:17→06:18)
[2017-03-22 09:52] LABS: Anion Gap 17 mmol/L; BUN/Creatinine Ratio 34.61; Blood Urea Nitrogen 45 mg/dL (9-20); Calcium 7.9 mg/dL (8.4-10.2); Carbon Dioxide 24 mmol/L (22-30); Chloride 108.7 mmol/L (98-107); Glucose 70 mg/dL (75-100); Potassium 4.7 mmol/L (3.6-5.0); Sodium 145 mmol/L (137-145)
--- NOTE | 2017-03-22 11:50 | Progress Note ---
Assessment and Plan Assessment and plan: 81 yo male with CAD s/p CABG, h/o gross hematuria, likely dementia, brought to the hospital for altered mental status and found to be hypotensive, in acute renal failure, with hypernatremia 1. Acute renal failure Likely secondary to vasomotor nephropathy due to dehydration versus ATN from hypotension Renal ultrasound with no obstruction Serologies negative Resolved with IV fluids Avoiding nephrotoxins Medications renally dosed Nephrology following 2. Hypernatremia Likely secondary to dehydration due to poor intake Resolved with IV fluids 3. Hypokalemia Potassium replaced 4. Metabolic acidosis Due to acute renal failure Resolved 5. Acute toxic metabolic encephalopathy Multifactorial - with anemia/electrolytes abnormalities/hypoglycemia superimposed on baseline dementia CT head and brain MRI with no acute abnormalities; showing atrophy Neurology consulted and recommended no further intervention Underlying conditions treated and resolved, but no improvement in mental status Exelon patch trial per family request 6. Possible sepsis 1/2 blood cultures positive for gram-negative staph which is most likely a contaminant (no fever or leukocytosis) Repeat blood cultures negative Antibiotics discontinued 7. Elevated LFTs AST/ALT slightly elevated, but alkaline phosphatase elevated GI following US raised suspicion of GB polyp versus mass CT abdomen with IV contrast obtained and showed no liver lesions and no dilatation of billiary ducts AP possible elevated due to prostate cancer 8. Poor by mouth intake Likely secondary to his declined mental status (encephalopathy superimposed on dementia)/malignancy Family requested PEG placement; GI consulted but procedure unable to be performed due to thrombocytopenia 9. Severe malnutrition Due to poor intake/malignancy 10. Hypoglycemia Not taking po and removed NGT Give IV fluids (D5 NS) 11. Hypothyroidism TSH elevated, but FT4 within normal limits Synthroid dose adjusted 12. History of gross hematuria See discussion below 13. Likely prostate cancer History of gross hematuria in Oct 2016 CT abd/pelvis at that time showing moderately enlarged prostate with suggestion of invasion into the urinary bladder Advised to follow-up with urology and also with his PCP at [place] Will discuss with family 14. Anemia Likely multifactorial - blood loss due to hematuria/nutritional deficiencies/ renal failure Hemoglobin low, but stable Monitor H&H 15. Thrombocytopenia Sepsis ruled out Possible secondary to prostate cancer Monitor and consult oncology 16. DVT/GI prophylaxis 17. DNR 18. Dispo Hospice appropriate, will discuss with family History Interval history: yesterday pulled NGT again, unable to take any po; family wants PEG, but GI unable to do it due to thrombocytopenia trying to discuss with family Hospitalist Physical - Constitutional Vitals: Temp Pulse Resp BP Pulse Ox 97.9 F 74 20 103/58 100 03/22/17 04:00 03/22/17 08:20 03/22/17 08:20 03/22/17 08:20 03/22/17 08:20 General appearance: Present: no acute distress, obese - EENT Eyes: Present: PERRL, EOM intact. Absent: scleral icterus, conjunctival injection - Neck Neck: Present: supple. Absent: enlarged thyroid, masses or JVD - Respiratory Respiratory effort: normal Respiratory: bilateral: CTA, negative: rhonchi, wheezing - Cardiovascular Rhythm: regular Heart Sounds: Present: S1 & S2. Absent: systolic murmur - Extremities Extremities: no ischemia - Abdominal General gastrointestinal: soft, non-tender, non-distended, normal bowel sounds - Psychiatric Psychiatric: no appropriate mood/affect, no intact judgment & insight, no memory intact, other (confused) - Neurologic Neurologic: moves all extremities, other (AAOx0) Results - Labs CBC & Chem 7: 03/22/17 04:38 03/22/17 09:06 Labs: Laboratory Last Values WBC 7.3 K/mm3 (4.5-11.0) 03/22/17 04:38 RBC 3.00 M/mm3 (3.65-5.03) L 03/22/17 04:38 Hgb 8.2 gm/dl (11.8-15.2) L 03/22/17 04:38 Hct 24.8 % (35.5-45.6) L 03/22/17 04:38 MCV 83 fl (84-94) L 03/22/17 04:38 MCH 27 pg (28-32) L 03/22/17 04:38 MCHC 33 % (32-34) 03/22/17 04:38 RDW 23.1 % (13.2-15.2) H 03/22/17 04:38 Plt Count 41 K/mm3 (140-440) L 03/22/17 04:38 Lymph % (Auto) 15.3 % (13.4-35.0) 03/22/17 04:38 [place] % (Auto) 3.4 % (0.0-7.3) 03/22/17 04:38 Eos % (Auto) 0.0 % (0.0-4.3) 03/22/17 04:38 Baso % (Auto) 0.1 % (0.0-1.8) 03/22/17 04:38 Lymph # 1.1 K/mm3 (1.2-5.4) L 03/22/17 04:38 Foard # 0.3 K/mm3 (0.0-0.8) 03/22/17 04:38 Eos # 0.0 K/mm3 (0.0-0.4) 03/22/17 04:38 Baso # 0.0 K/mm3 (0.0-0.1) 03/22/17 04:38 Add Manual Diff Complete 03/12/17 07:08 Total Counted 100 03/12/17 07:08 Seg Neutrophils % 81.2 % (40.0-70.0) H 03/22/17 04:38 Seg Neuts % (Manual) 56.0 % (40.0-70.0) 03/12/17 07:08 Band Neutrophils % 0 % 03/12/17 07:08 Lymphocytes % (Manual) 36.0 % (13.4-35.0) H 03/12/17 07:08 Reactive Lymphs % (Man) 2.0 % 03/12/17 07:08 Monocytes % (Manual) 6.0 % (0.0-7.3) 03/12/17 07:08 Eosinophils % (Manual) 0 % (0.0-4.3) 03/12/17 07:08 Basophils % (Manual) 0 % (0.0-1.8) 03/12/17 07:08 Metamyelocytes % 0 % 03/12/17 07:08 Myelocytes % 0 % 03/12/17 07:08 Promyelocytes % 0 % 03/12/17 07:08 Blast Cells % 0 % 03/12/17 07:08 Nucleated RBC % 1.0 % (0.0-0.9) H 03/12/17 07:08 Seg Neutrophils # 5.9 K/mm3 (1.8-7.7) 03/22/17 04:38 Seg Neutrophils # Man 2.3 K/mm3 (1.8-7.7) 03/12/17 07:08 Band Neutrophils # 0.0 K/mm3 03/12/17 07:08 Lymphocytes # (Manual) 1.5 K/mm3 (1.2-5.4) 03/12/17 07:08 Abs React Lymphs (Man) 0.1 K/mm3 03/12/17 07:08 Monocytes # (Manual) 0.2 K/mm3 (0.0-0.8) 03/12/17 07:08 Eosinophils # (Manual) 0.0 K/mm3 (0.0-0.4) 03/12/17 07:08 Basophils # (Manual) 0.0 K/mm3 (0.0-0.1) 03/12/17 07:08 Metamyelocytes # 0.0 K/mm3 03/12/17 07:08 Myelocytes # 0.0 K/mm3 03/12/17 07:08 Promyelocytes # 0.0 K/mm3 03/12/17 07:08 Blast Cells # 0.0 K/mm3 03/12/17 07:08 WBC Morphology Not Reportable 03/12/17 07:08 Hypersegmented Neuts Not Reportable 03/12/17 07:08 Hyposegmented Neuts Not Reportable 03/12/17 07:08 Hypogranular Neuts Not Reportable 03/12/17 07:08 Smudge Cells Not Reportable 03/12/17 07:08 Toxic Granulation Not Reportable 03/12/17 07:08 Toxic Vacuolation Not Reportable 03/12/17 07:08 Dohle Bodies Not Reportable 03/12/17 07:08 Pelger-Huet Anomaly Not Reportable 03/12/17 07:08 Benedicto Rods Not Reportable 03/12/17 07:08 Platelet Estimate Cons 03/12/17 07:08 Clumped Platelets Not Reportable 03/12/17 07:08 Plt Clumps, EDTA Not Reportable 03/12/17 07:08 Large Platelets Few 03/12/17 07:08 Giant Platelets Rare 03/12/17 07:08 Platelet Satelliting Not Reportable 03/12/17 07:08 Plt Morphology Comment Not Reportable 03/12/17 07:08 RBC Morphology Not Reportable 03/12/17 07:08 Dimorphic RBCs Not Reportable 03/12/17 07:08 Polychromasia Not Reportable 03/12/17 07:08 Hypochromasia Not Reportable 03/12/17 07:08 Poikilocytosis 2+ 03/12/17 07:08 Anisocytosis 1+ 03/12/17 07:08 Microcytosis Not Reportable 03/12/17 07:08 Macrocytosis Not Reportable 03/12/17 07:08 Spherocytes Not Reportable 03/12/17 07:08 Pappenheimer Bodies Not Reportable 03/12/17 07:08 Sickle Cells Not Reportable 03/12/17 07:08 Target Cells Not Reportable 03/12/17 07:08 Tear Drop Cells Not Reportable 03/12/17 07:08 Ovalocytes Not Reportable 03/12/17 07:08 Helmet Cells Not Reportable 03/12/17 07:08 [place] Bodies Not Reportable 03/12/17 07:08 Zoar Rings Not Reportable 03/12/17 07:08 [place] Cells 2+ 03/12/17 07:08 Bite Cells Not Reportable 03/12/17 07:08 Crenated Cell Not Reportable 03/12/17 07:08 Elliptocytes Not Reportable 03/12/17 07:08 Acanthocytes (Spur) Not Reportable 03/12/17 07:08 Rouleaux Not Reportable 03/12/17 07:08 Hemoglobin C Crystals Not Reportable 03/12/17 07:08 Schistocytes Not Reportable 03/12/17 07:08 Malaria parasites Not Reportable 03/12/17 07:08 Pierre Bodies Not Reportable 03/12/17 07:08 Hem Pathologist Commnt No 03/12/17 07:08 PT 13.7 Sec. (12.2-14.9) 03/21/17 15:07 INR 1.06 (0.87-1.13) 03/21/17 15:07 POC ABG pH 7.449 (7.35-7.45) 03/04/17 16:45 POC ABG pCO2 48.5 (35-45) H 03/04/17 16:45 POC ABG pO2 79 (80-105) L 03/04/17 16:45 POC ABG HCO3 33.7 03/04/17 16:45 POC ABG Total CO2 35 03/04/17 16:45 POC ABG O2 Sat 96 03/04/17 16:45 POC ABG Base Excess 10 05/06/17 16:45 FiO2 21 % 03/04/17 16:45 Sodium 145 mmol/L (137-145) 03/22/17 09:06 Potassium 4.7 mmol/L (3.6-5.0) 03/22/17 09:06 Chloride 108.7 mmol/L (98-107) H 03/22/17 09:06 Carbon Dioxide 24 mmol/L (22-30) 03/22/17 09:06 Anion Gap 17 mmol/L 03/22/17 09:06 BUN 45 mg/dL (9-20) H 03/22/17 09:06 Creatinine 1.3 mg/dL (0.8-1.5) 03/22/17 09:06 Estimated GFR > 60 ml/min 03/22/17 09:06 BUN/Creatinine Ratio 34.61 % 03/22/17 09:06 Glucose 70 mg/dL (75-100) L 03/22/17 09:06 POC Glucose 64 (70-105) L 03/22/17 05:58 Lactic Acid 1.40 mmol/L (0.7-2.0) 03/04/17 20:41 Calcium 7.9 mg/dL (8.4-10.2) L 03/22/17 09:06 Ionized Calcium 4.4 mg/dL (4.8-5.6) L 03/16/17 04:59 Phosphorus 3.10 mg/dL (2.5-4.5) 03/22/17 09:06 Magnesium 2.30 mg/dL (1.7-2.3) 03/22/17 09:06 Total Bilirubin 0.40 mg/dL (0.1-1.2) 03/16/17 04:59 Direct Bilirubin < 0.2 mg/dL (0-0.2) 03/16/17 04:59 Indirect Bilirubin 0.2 mg/dL 03/16/17 04:59 AST 74 units/L (5-40) H 03/16/17 04:59 ALT 83 units/L (7-56) H 03/16/17 04:59 Alkaline Phosphatase 365 units/L (35-129) H 03/16/17 04:59 Ammonia 17.0 umol/L (25-60) L 03/13/17 05:19 Total Creatine Kinase 420 units/L (55-170) H 03/04/17 16:40 Serum Total Protein 5.7 g/dL (6.1-8.1) L 03/06/17 10:30 Total Protein 5.1 g/dL (6.3-8.2) L 03/16/17 04:59 Albumin 1.8 g/dL (3.9-5) L 03/16/17 04:59 Albumin/Globulin Ratio 0.5 % 03/16/17 04:59 Ugsqp-8-Yqxoumebd 0.4 g/dL (0.2-0.3) H 03/06/17 10:30 Sdfki-1-Pwcoacmpq 0.9 g/dL (0.5-0.9) 03/06/17 10:30 Beta Globulins 0.6 g/dL (0.2-0.5) H 03/06/17 10:30 Gamma Globulins 1.2 g/dL (0.8-1.7) 03/06/17 10:30 Abnorm Protein Band 1 see below 03/06/17 10:30 PEP Interpretation see below H 03/06/17 10:30 Prostate Specific Ag 11.72 ng/mL (0.00-4.00) H 03/22/17 04:38 Vitamin B12 > 2000 pg/mL (211-911) H 03/16/17 11:20 TSH 10.230 mlU/mL (0.270-4.200) H 03/04/17 16:40 Free T4 0.89 ng/dL (0.76-1.46) 03/04/17 20:41 Urine Color [place] (Yellow) 03/04/17 15:00 Urine Turbidity Clear (Clear) 03/04/17 15:00 Urine pH 5.0 (5.0-7.0) 03/04/17 15:00 Ur Specific [place] 1.017 (1.003-1.030) 03/04/17 15:00 Urine Protein <15 mg/dl mg/dL (Negative) 03/04/17 15:00 Urine Glucose (UA) Neg mg/dL (Negative) 03/04/17 15:00 Urine Ketones Neg mg/dL (Negative) 03/04/17 15:00 Urine Blood Sm (Negative) 03/04/17 15:00 Urine Nitrite Neg (Negative) 03/04/17 15:00 Urine Bilirubin Neg (Negative) 03/04/17 15:00 Urine Urobilinogen < 2.0 mg/dL (<2.0) 03/04/17 15:00 Ur Leukocyte Esterase Neg (Negative) 03/04/17 15:00 Urine WBC (Auto) < 1.0 /HPF (0.0-6.0) 03/04/17 15:00 Urine RBC (Auto) < 1.0 /HPF (0.0-6.0) 03/04/17 15:00 U Epithel Cells (Auto) < 1.0 /HPF (0-13.0) 03/04/17 15:00 Urine Osmolality 351 Mosm/kg 03/05/17 14:08 Salicylates < 0.3 mg/dL (2.8-20.0) L 03/04/17 16:40 Urine Opiates Screen Presumptive negative 03/04/17 15:00 Urine Methadone Screen Presumptive negative 03/04/17 15:00 Acetaminophen < 15.0 ug/mL (10.0-30.0) 03/04/17 16:40 Ur Barbiturates Screen Presumptive negative 03/04/17 15:00 Ur Phencyclidine Scrn Presumptive negative 03/04/17 15:00 Ur Amphetamines Screen Presumptive negative 03/04/17 15:00 U Benzodiazepines Scrn Presumptive negative 03/04/17 15:00 Urine Cocaine Screen Presumptive negative 03/04/17 15:00 U Marijuana (THC) Screen Presumptive negative 03/04/17 15:00 Drugs of Abuse Note Disclamer 03/04/17 15:00 Plasma/Serum Alcohol < 0.01 gm% (0-0.07) 03/04/17 16:40 TIFFANY Screen Negative (Negative) 03/05/17 14:08 Proteinase 3 (PR3) Ab <1.0 AI (<1.0) 03/05/17 14:08 Myeloperoxidase Ab <1.0 AI (<1.0) 03/05/17 14:08 Double Strand DNA Ab <1 IU/mL (<=4) 03/05/17 14:08 Complement C3 65 mg/dL (90-180) L 03/05/17 14:08 Complement C4 34 mg/dL (16-47) 03/05/17 14:08 Hepatitis A IgM Ab Non-reactive (NonReactive) 03/05/17 07:08 Hep Bs Antigen Non-reactive (Negative) 03/05/17 07:08 Hep B Core IgM Ab Non-reactive (NonReactive) 03/05/17 07:08 Hepatitis C Antibody Non-reactive (NonReactive) 03/05/17 07:08
[2017-03-22] MEDS ORDERED: D5NS 1,000 ML IV SCH (12:00)
[2017-03-22] MEDS: LOVENOX SUB-Q SCH (12:41)
[2017-03-22] MEDS: EXELON TD SCH (12:41)
--- NOTE | 2017-03-22 15:11 | Discharge Summary ---
Providers - Providers Date of Admission: 03/04/17 18:10 Date of discharge: 03/22/17 Attending physician: HUMA ISABEL 03/05/17 07:26 Consult to Dietitian/Nutrition [CONS] Routine Physician Instructions: Consult for tube feed Reason For Exam: POOR INTAKE Reason for Consult: John score 15 03/05/17 11:54 Consult to Physician [CONS] Routine Consulting Provider: GAVINO SANZ Reason For Exam: VITALY Place consult to:: Dr. Sanz Notified:: Marium GO Was contact made?: Yes If yes, spoke with:: Dr. Sanz Time called:: 12:25 03/07/17 14:55 Physical Therapy Evaluation and Treat [CONS] Routine Comment: skilled needs Reason For Exam: eval & treat 03/07/17 14:56 Occupational Therapy Evaluate and Treat [CONS] Routine Comment: skill needs Reason For Exam: eval & treat 03/09/17 17:54 Consult to Wound/ET Nurse [CONS] Routine Reason For Exam: wound eval 03/12/17 10:42 Consult to Physician [CONS] Routine Consulting Provider: KRISHAN OLVERA Reason For Exam: transaminitis/thick GB wall/polyps/? carcinoma Place consult to:: Gi Notified:: a service Phone number called:: [phone] Was contact made?: Yes If yes, spoke with:: jemma Time called:: 11:13 03/15/17 11:56 Consult to Physician [CONS] Routine Consulting Provider: ADITYA LIVE Reason For Exam: gall bladder polyp Place consult to:: technical implementation lead Notified:: OFFICE Phone number called:: [phone] Was contact made?: Yes If yes, spoke with:: MARLENA Time called:: 12:15 03/15/17 12:39 Consult to Physician [CONS] Routine Consulting Provider: STEVEN METZGER Reason For Exam: encephalopathy Place consult to:: neurology Notified:: rob Phone number called:: [phone] Was contact made?: No Time called:: 14:08 Consult to Physician [CONS] Routine Consulting Provider: SARA BERNAL Reason For Exam: gall bladder polyp Place consult to:: technical implementation lead general surgeon Notified:: tyson 03/15/17 13:10 Midline [Consult to PICC Line RN] [CONS] Routine Reason For Exam: iv access Type Line:: Midline 03/16/17 01:17 Consult to Dietitian/Nutrition [CONS] Routine Physician Instructions: Consult for tube feed Reason For Exam: POOR INTAKE Reason for Consult: Poor oral intake 03/17/17 17:20 Consult to Case Management [CONS] Routine Services Needed at Discharge: Other Notified:: Case management Comment:: hospice 03/20/17 12:22 Consult to Physician [CONS] Routine Consulting Provider: GARY LOERA Reason For Exam: PEG tube placement Place consult to:: GI Notified:: office Phone number called:: [phone] Was contact made?: Yes If yes, spoke with:: telly Time called:: 13:33 03/21/17 15:54 Consult to Dietitian/Nutrition [CONS] Routine Physician Instructions: Patient intol of Dob[place]& cant get PEG(see note) Reason For Exam: Reason for Consult: Write/Manage TPN/PPN 03/22/17 10:45 Consult to Physician [CONS] Urgent Consulting Provider: LALI STACY Reason For Exam: poss new dg prostate cancer, thrombocytopenia Place consult to:: Dr. Stacy Notified:: Doris RN Phone number called:: Was contact made?: Yes If yes, spoke with:: Kosta Comment:: PEG unable to be placed due to thrombocytopenia Primary care physician: HYDRA[employer]IC [employer]OM OPERATOR Hospitalization Reason for admission: AMS Condition: Fair Pertinent studies: Chest x-rays Abdominal x-rays Abdominal ultrasound Renal ultrasound CT abdomen/pelvis CT head Brain MRI Hospital course: 81 yo male with CAD s/p CABG, h/o gross hematuria, likely dementia, brought to the hospital for altered mental status and found to be hypotensive, in acute renal failure, with hypernatremia 1. Acute renal failure Likely secondary to vasomotor nephropathy due to dehydration versus ATN from hypotension Renal ultrasound with no obstruction Serologies negative Resolved with IV fluids 2. Hypernatremia Likely secondary to dehydration due to poor intake Resolved with IV fluids 3. Hypokalemia Potassium replaced 4. Metabolic acidosis Due to acute renal failure Resolved 5. Acute toxic metabolic encephalopathy Multifactorial - with anemia/electrolytes abnormalities/hypoglycemia superimposed on baseline dementia CT head and brain MRI with no acute abnormalities; showing atrophy Neurology consulted and recommended no further intervention Underlying conditions treated and resolved, but no improvement in mental status Exelon patch trial per family request 6. Possible sepsis 1/2 blood cultures positive for gram-negative staph which is most likely a contaminant (no fever or leukocytosis) Repeat blood cultures negative Antibiotics discontinued 7. Elevated LFTs AST/ALT slightly elevated, but alkaline phosphatase elevated GI following US raised suspicion of GB polyp versus mass CT abdomen with IV contrast obtained and showed no liver lesions and no dilatation of billiary ducts AP possible elevated due to prostate cancer 8. Poor by mouth intake Likely secondary to his declined mental status (encephalopathy superimposed on dementia)/malignancy Family requested PEG placement; GI consulted but procedure unable to be performed due to thrombocytopenia 9. Severe malnutrition Due to poor intake/malignancy 10. Hypoglycemia Not taking po and removed NGT 11. Hypothyroidism TSH elevated, but FT4 within normal limits Synthroid dose adjusted 12. History of gross hematuria See discussion below 13. Likely prostate cancer History of gross hematuria in Oct 2016 CT abd/pelvis at that time showing moderately enlarged prostate with suggestion of invasion into the urinary bladder Advised to follow-up with urology and also with his PCP at [place], but did not follow 14. Anemia Likely multifactorial - blood loss due to hematuria/nutritional deficiencies/ renal failure Hemoglobin low, but stable 15. Thrombocytopenia Sepsis ruled out Possible secondary to prostate cancer 16. DNR 17. Dispo Discussed with family and will be transfered to inpatient hospice Disposition: [facility] (MEDICAL FACILITY) Time spent for discharge: 35 min Core Measure Documentation - Palliative Care Palliative Care/ Comfort Measures: Hospice Care - Core Measures Any of the following diagnoses?: none Exam - Constitutional Vitals: Temp Pulse Resp BP Pulse Ox 97.9 F 74 20 103/58 100 03/22/17 04:00 03/22/17 08:20 03/22/17 08:20 03/22/17 08:20 03/22/17 08:20 General appearance: Present: no acute distress - Neck Neck: Present: supple, normal ROM. Absent: masses or JVD - Respiratory Respiratory effort: normal Respiratory: bilateral: CTA, negative: rhonchi, wheezing - Cardiovascular Rhythm: regular Heart Sounds: Present: S1 & S2. Absent: systolic murmur - Extremities Extremities: no ischemia - Abdominal General gastrointestinal: Present: soft, non-tender, non-distended, normal bowel sounds - Musculoskeletal Musculoskeletal: generalized weakness - Psychiatric Psychiatric: no appropriate mood/affect, no intact judgment & insight, no memory intact, other (confused) - Neurologic Neurologic: moves all extremities, other (AAOX0) Plan Activity: advance as tolerated, fall precautions Diet: advance as tolerated Additional Instructions: Hospice physician will take over patient's care. Follow up with: PRIMARY CARE, [Primary Care Provider] - 3-5 Days
--- NOTE | 2017-03-22 16:17 | Event Note ---
Date: 03/22/17 Per Chart Review and nursing report, patient is being discharged to hospice today with [facility]. GI will sign off. Soledad Keys, ACNP-BC
[2017-03-22 20:56] VITALS: BP 109/62
== END 2017-03-22 23:08 | disposition hospice, inpatient (51) | DRG 682 ==
LOC: ED 15:55 → 4A 18:10
PROVIDERS: ADMIT Internal Medicine; ATTEND Internal Medicine
PROC: 4A033R1 Measurement of Arterial Saturation, Peripheral, Percutaneous Approach (ICD-10-PCS; principal; 2017-03-04)
DX: N17.0 Acute kidney failure with tubular necrosis (principal); G92 Toxic encephalopathy; E43 Unspecified severe protein-calorie malnutrition; E87.0 Hyperosmolality and hypernatremia; E87.2 Acidosis; Z66 Do not resuscitate; I50.9 Heart failure, unspecified; E87.6 Hypokalemia; E03.9 Hypothyroidism, unspecified; I11.0 Hypertensive heart disease with heart failure; I95.9 Hypotension, unspecified; I25.10 Atherosclerotic heart disease of native coronary artery without angina pectoris; R74.0 Nonspecific elevation of levels of transaminase and lactic acid dehydrogenase [LDH]; E11.649 Type 2 diabetes mellitus with hypoglycemia without coma; E83.51 Hypocalcemia; E86.0 Dehydration; D69.6 Thrombocytopenia, unspecified; B95.7 Other staphylococcus as the cause of diseases classified elsewhere; F03.90 Unspecified dementia, unspecified severity, without behavioral disturbance, psychotic disturbance, mood disturbance, and anxiety; D64.9 Anemia, unspecified; Z95.1 Presence of aortocoronary bypass graft; Z82.49 Family history of ischemic heart disease and other diseases of the circulatory system; Z83.3 Family history of diabetes mellitus; Z68.35 Body mass index [BMI] 35.0-35.9, adult
CPT/HCPCS: 36415; 51701; 70450; 70551; 71010; 74000; 74020; 74176; 76700; 76770; 80048; 80053; 80074; 80307; 80320; 81001; 82140; 82330; 82550; 82607; 82803; 82962; 83735; 83935; 84100; 84153; 84165; 84439; 84443; 85007; 85025; 85027; 85610; 86021; 86038; 86160; 86225; 87040; 93005; 93010; 96361; 96374; 96375; G0480; G8978-GP; G8979-GP; G8987-GO; G8988-GO; G8989-GO; J0696; J1610; J1650; J1815; J1956; J2060; J2543; J3370; J3480; J7030; J7050; J7070